=== PATIENT | female | born 1970 | race Caucasian/White ===

== ENCOUNTER 2019-06-28 07:17 | Day surgery (SDC) | payer BC, SELFPAY ==
[2019-06-27 14:02] VITALS: BMI 31.9
--- NOTE | 2019-06-28 07:49 | ANES.PREANES ---
Pre-Anesthetic Assessment Pre-Anesthetic Assessment: Height/Weight: Height 1.7 m Weight 92.533 kg Proposed Procedure: Operation Date: 06/28/19 09:00 Proposed Procedures p COLON(Not Applicable) - Evgeny Bryan MD Social: Social History: Alcohol and Tobacco Exam: Pre-Anes Outpt Exam: alert, oriented x 3, clear to auscultation bilaterally and regular rate & rhythm Airway: Submandibular: WNL Cervical ROM: WNL MP: 2 Dentition: Full History/ROS: No significant history except as noted Anesthetic Plan: ASA status: III Anesthesia: Anesthesia Evaluation and MAC PFSH Anesthesia PFSH: Medical History (Updated 06/28/19 @ 07:51 by Reed Bryant MD) Autonomic neuropathy (Acute) Depression (Acute) Fibromyalgia (Acute) Functional movement disorder (Acute) History of IBS (Acute) History of pulmonary edema (Acute) Migraine (Acute) Psoriasis (Acute) Sleep apnea (Acute) Surgical History (Updated 06/28/19 @ 07:51 by Reed Bryant MD) History of carpal tunnel repair (Acute) LEFT Family History (Updated 06/27/19 @ 13:46 by Gayle Coyle LPN) Mother Breast cancer Grandmother Breast cancer Father Stented coronary artery Social History (Updated 06/27/19 @ 13:47 by Gayle Coyle LPN) Smoking and tobacco status: current every day smoker Alcohol intake: never Substance/Drug Use: never Data Anesthesia Cardiac Studies: No Data to Display
[2019-06-28] MEDS: sodium chloride 0.9% 1,000 ML 30 ML (08:45)
[2019-06-28 10:11] VITALS: BP 111/64; PULSE 75; RESP 16; TEMP 36.2; O2SAT 95
--- NOTE | 2019-06-28 10:13 | ANE.PACU ---
 Inpatient post-anesthesia follow up: Airway intact: Yes Vital signs: Temperature Pulse Rate Respiratory Rate Blood Pressure Pulse Oximetry Oxygen Delivery Me thod Oxygen Flow Rate Fraction of Inspir ed Oxygen Hydration adequate: Yes Nausea and vomiting: No Pain level: 1 Mental status: Baseline Additional Comments: VSS good respiratory effort see nurse note for vitals
[2019-06-28 10:25] VITALS: BP 123/73; PULSE 66; RESP 18; O2SAT 97
--- NOTE | 2019-09-03 07:12 | W.PM.OPSUD ---
Surgery/Procedure H&P Update DATE OF PROCEDURE: June 28, 2019 DATE H&P PERFORMED: 09/03/19 H&P UPDATE INFORMATION: I have reviewed H&P completed within last 30 days, I have examined patient prior to procedure, No changes to prior documentation and H&P to be scanned into chart CHANGES TO PREVIOUS DOCUMENTATION: No changes necessary PREOP DIAGNOSIS: 1. Chronic diarrhea2. History of colon polyps PLANNED PROCEDURE: Operation Date: 06/28/19 09:00 Proposed Procedures p COLON(Not Applicable) - Evgeny Bryan MD PATIENT REASSESSED PRIOR TO SEDATION, WITH NO CHANGE NOTED: Yes PHYSICAL EXAM: alert, oriented x 3, clear to auscultation bilaterally and regular rate & rhythm OTHER PERTINENT EXAM FINDINGS: Abdomen is nondistended and nontender.
== END 2019-06-28 10:33 | disposition home or self-care (01) ==
PROVIDERS: Family Provider Physician Assistant; PCP Physician Assistant; Visit Provider Family Medicine
PROC: 0DJD8ZZ Inspection of Lower Intestinal Tract, Via Natural or Artificial Opening Endoscopic (ICD-10-PCS; CPT 45378; principal; 2019-06-28 09:00)
DX: Z12.11 Encounter for screening for malignant neoplasm of colon (principal); D12.2 Benign neoplasm of ascending colon; Z86.010 Personal history of colon polyps; K52.9 Noninfective gastroenteritis and colitis, unspecified; G47.30 Sleep apnea, unspecified; F32.9 Major depressive disorder, single episode, unspecified; M79.7 Fibromyalgia; F17.210 Nicotine dependence, cigarettes, uncomplicated
CPT/HCPCS: 12345; 45385; 88305; 99221; J2704; J7030

== ENCOUNTER → 2019-07-19 09:52 | Outpatient (BNVA) | payer BC, SELFPAY | PROVIDERS: Family Provider Physician Assistant; PCP Physician Assistant; Visit Provider Nurse Practitioner | DX: G89.29 Other chronic pain (principal); M54.9 Dorsalgia, unspecified; M54.2 Cervicalgia; M25.512 Pain in left shoulder; M79.7 Fibromyalgia; F17.210 Nicotine dependence, cigarettes, uncomplicated; Z79.891 Long term (current) use of opiate analgesic | CPT/HCPCS: 99215 ==

== ENCOUNTER → 2019-08-29 13:04 | Outpatient (BNVA) | payer BC, SELFPAY | PROVIDERS: Family Provider Physician Assistant; PCP Physician Assistant; Visit Provider Specialist | DX: G43.711 Chronic migraine without aura, intractable, with status migrainosus (principal); F17.210 Nicotine dependence, cigarettes, uncomplicated | CPT/HCPCS: 64615; J0585 ==

== ENCOUNTER 2019-09-19 08:43 | Outpatient (CLI) | payer BC, SELFPAY ==
--- NOTE | 2019-09-19 08:49 | CT_ITS ---
WS: [id number] CT ABDOMEN AND PELVIS NONCONTRAST HISTORY: LLQ PAIN TECHNIQUE: Imaging performed through the abdomen and pelvis. Patient refused oral contrast. Coronal a nd sagittal reformats are submitted. All CT scans at [facility] use at least one of these dose optimization techniques: automated exposure control; mA and/or kV adjustment per patient size ( includes targeted exams where dose is matched to clinical indication); or iterative reconstruction. DLP: 1444.56 mGy.cm COMPARISON: None available. Lower thorax: Lung bases are clear. No hiatal hernia. Liver: Normal, no mass or intrahepatic dilatation. Gallbladder: Prior cholecystectomy. Pancreas: Normal. Spleen: Normal. Adrenal glands: RIGHT adrenal gland is normal. Well-circumscribed low-attenuation mass with negative Hounsfield units measures 2.6 x 2.8 cm in the LEFT adrenal gland. Right kidney: Nonobstructing 5 mm calcification upper pole. No obstruction. Left kidney: Normal size with no stones, mass or atrophy. Mild atherosclerosis. No aneurysm. No free fluid, intraperitoneal air or significant lymphadenopathy. GI tract: Normal appendix. Mild fecal retention with no obstruction. There are a few diverticula in t he sigmoid with no adjacent evidence for diverticulitis. There is some very mild wall thickening of t he distal sigmoid which is nonspecific. May be due to underdistention or mild colitis or early neopla sm. Abdominal wall: Postsurgical changes along the ventral abdominal wall from hernia repair. Pelvis: Minimally distended urinary bladder. No free fluid or adenopathy. Prior hysterectomy. Osseous structures: Sclerotic focus involving the posterior LEFT acetabulum is probably a benign bone island. CT/CT abdomen pelvis wo con [id number] IMPRESSION: 1. No acute abdominal or pelvic abnormality identified. 2. There is very minimal wall thickening involving the distal sigmoid which co uld be due to underdistention, mild colitis or early neoplasm. No significant d iverticular disease. Follow-up colonoscopy may be beneficial. 3. LEFT adrenal adenoma. 4. Prior cholecystectomy and hysterectomy.
== END 2019-09-19 08:44 | disposition home or self-care (01) ==
PROVIDERS: Family Provider Physician Assistant; PCP Physician Assistant; Visit Provider Physician Assistant
DX: D35.02 Benign neoplasm of left adrenal gland (principal); R10.32 Left lower quadrant pain; Z90.49 Acquired absence of other specified parts of digestive tract; Z90.710 Acquired absence of both cervix and uterus
CPT/HCPCS: 74176

== ENCOUNTER → 2019-09-26 08:01 | Outpatient (BNVA) | payer BC, SELFPAY | PROVIDERS: Family Provider Physician Assistant; PCP Physician Assistant; Visit Provider Anesthesiology | DX: M79.18 Myalgia, other site (principal); G89.29 Other chronic pain; M54.2 Cervicalgia; M54.9 Dorsalgia, unspecified; F17.200 Nicotine dependence, unspecified, uncomplicated; Z79.899 Other long term (current) drug therapy | CPT/HCPCS: 20552; J1030; J3490 ==

== ENCOUNTER 2019-10-31 07:19 | Day surgery (SDC) | payer BC, SELFPAY ==
[2019-10-30 13:47] VITALS: BMI 33.0
[2019-10-31 07:34] VITALS: BP 131/74; PULSE 74; RESP 18; TEMP 36.4; O2SAT 95
[2019-10-31] MEDS: sodium chloride 0.9% 1,000 ML 30 ML IV (07:52)
--- NOTE | 2019-10-31 08:02 | ANES.PREANE2 ---
Pre-Anesthetic Assessment Pre-Anesthetic Assessment: Height/Weight: Height 1.7 m Weight 95.708 kg Temp Pulse Resp BP Pulse Ox 97.5 F L 74 18 131/74 95 10/31/19 07:34 10/31/19 07:34 10/31/19 07:34 10/31/19 07:34 10/31/19 07:34 Preop Diagnosis: 1. Chronic diarrhea2. History of colon polyps Proposed Procedure: Operation Date: 10/31/19 08:45 Proposed Procedures p Exam Under Anesthesia poss Hemrroidectomy(Not Applicable) - Kareem Bird MD s possible Hemorroidectomy(Not Applicable) - Kareem Bird MD s Possible internal anal Sphincterotomy(Not Applicable) - Kareem Bird MD Was Beta Ayad taken within 24 hours: N/A Last intake: Intake Last Liquid Date 10/30/19 Last Liquid Time 22:30 Last Solid Date 10/30/19 Last Solid Time 18:30 Social: Social History: Alcohol and Tobacco Exam: Pre-Anes Outpt Exam: alert, oriented x 3, clear to auscultation bilaterally and regular rate & rhythm Airway: Submandibular: WNL Cervical ROM: WNL MP: 2 History/ROS: No significant history except as noted Neuropsych: Neuropsych: Seizure Anesthetic Plan: ASA status: 2 Anesthesia: Anesthesia Evaluation, Choice and MAC Risk of > 500 ml blood loss (7ml/kg in children): No Meds/Allergies Current Medications: Current Medications Generic Name Dose Route Start Last Admin Trade Name Freq PRN Reason Stop Dose Admin Sodium Chloride 1,000 mls @ 30 ml s/hr 10/31/19 07:30 10/31/19 07:52 Sodium Chloride 0.9% IV 11/01/19 07:29 30 mls/hr .Q24H ETHAN Administration PFSH Anesthesia PFSH: Medical History Autonomic neuropathy Depression Dyslipidemia Fibromyalgia Functional movement disorder History of IBS History of pulmonary edema Long-term use of high-risk medication Migraine Myalgia Psoriasis Sleep apnea Smoker Surgical History History of carpal tunnel repair LEFT Hx of section Hx of cholecystectomy Hx of hysterectomy Social History Smoking and tobacco status: current every day smoker cigarettes Alcohol intake: current Alcohol intake frequency: holidays/special occasions only History of recent travel: No Data Anesthesia Cardiac Studies: No Data to Display
--- NOTE | 2019-10-31 09:17 | W.PM.OPSUD ---
Surgery/Procedure H&P Update DATE OF PROCEDURE: October 31, 2019 DATE H&P PERFORMED: 09/03/19 H&P UPDATE INFORMATION: I have reviewed H&P completed within last 30 days and No changes to prior documentation PREOP DIAGNOSIS: 1. Chronic diarrhea2. History of colon polyps PLANNED PROCEDURE: Operation Date: 10/31/19 08:45 Proposed Procedures p Exam Under Anesthesia poss Hemrroidectomy(Not Applicable) - Kareem Bird MD s possible Hemorroidectomy(Not Applicable) - Kareem Bird MD s Possible internal anal Sphincterotomy(Not Applicable) - Kareem Bird MD
[2019-10-31] MEDS: metroNIDAZOLE IV 500 MG/100 ML PREMIX 100 MG IV (09:30)
--- NOTE | 2019-10-31 09:46 | PM.OP ---
Operative Report Date of procedure: October 31, 2019 Pre-op Diagnosis: 1. Anorectal pain. 2. Chronic diarrhea. Post-op Diagnosis: 1. Same (posterior anal fissure). 2. Internal/external hemorrhoids. Procedure Done: 1. Exam under anesthesia with left lateral internal anal sphincterotomy. 2. Hemorrhoidectomy. Specimens removed/disposition: Hemorrhoids. Surgeon: Kareem Bird Anesthesia: General Estimated blood loss (mL): 5 Complications: None. Condition: stable Disposition: PACU Procedure: The patient was brought to the operating room and was placed in a supine position on the operating room table. General endotracheal anesthesia was induced. The patient was then moved to a left lateral decubitus position on the table. The perianal region was prepped and draped in a sterile fashion. An exam under anesthesia was then carried out using a Lipscomb rectal retractor. Obvious internal anal sphincter spasm/stenosis was present. 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 Cautery was used to make a small incision in the left lateral location in the intersphincteric groove. The internal anal sphincter was isolated by means of blunt dissection with a hemostat. The sphincter was then partially divided with Metzenbaum scissors. This allowed the anal sphincters to be gently dilated to approximately 2-1/2 - 3 fingerbreadths. The small incision was then closed using several interrupted sutures of 3-0 chromic. Hemostasis was good. The hemorrhoids were then sequentially grasped with an Allis clamp and were removed or ablated using the Voyant energy device. Some 0.5% bupivacaine with 1-200,000 parts epinephrine was instilled for postoperative anesthesia. A Vaseline coated piece of gauze and some fluff dressings were used as anal packing and then a superficial fluff dressing was placed. The patient was taken to the recovery room in stable condition postoperatively.
[2019-10-31 09:56] VITALS: BP 128/75; PULSE 101; RESP 16; TEMP 36.2; O2SAT 95
[2019-10-31 10:00] VITALS: BP 125/86; PULSE 98; RESP 15; O2SAT 93
[2019-10-31 10:05] VITALS: BP 117/74; PULSE 95; RESP 17; TEMP 36.4; O2SAT 94
[2019-10-31 10:09] VITALS: BP 114/73; PULSE 95; RESP 18; TEMP 36.5; O2SAT 95
[2019-10-31 10:20] VITALS: BP 105/67; PULSE 97; RESP 18; O2SAT 97
== END 2019-10-31 10:50 | disposition home or self-care (01) ==
PROVIDERS: PCP Physician Assistant; Visit Provider Surgery
PROC: (CPT 46260; principal; 2019-10-31 08:45)
PROC: (CPT 46260; 2019-10-31 08:45)
PROC: (CPT 46080; 2019-10-31 08:45)
DX: K62.89 Other specified diseases of anus and rectum (principal); K52.9 Noninfective gastroenteritis and colitis, unspecified; K64.8 Other hemorrhoids; K64.4 Residual hemorrhoidal skin tags; E78.5 Hyperlipidemia, unspecified; M79.7 Fibromyalgia; G47.30 Sleep apnea, unspecified; F17.210 Nicotine dependence, cigarettes, uncomplicated; K21.9 Gastro-esophageal reflux disease without esophagitis; Z82.49 Family history of ischemic heart disease and other diseases of the circulatory system; Z83.3 Family history of diabetes mellitus
CPT/HCPCS: 46260; 12345; 88304; J0330; J0690; J2001; J2405; J2704; J3010; J3490; J7030; S0030

== ENCOUNTER → 2019-11-21 13:20 | Outpatient (BNVA) | payer BC, SELFPAY | PROVIDERS: PCP Physician Assistant; Visit Provider Specialist | DX: G43.711 Chronic migraine without aura, intractable, with status migrainosus (principal); F17.210 Nicotine dependence, cigarettes, uncomplicated | CPT/HCPCS: 64615; J0585 ==

== ENCOUNTER 2019-12-02 10:05 | Outpatient (CLI) | payer BC, SELFPAY ==
--- NOTE | 2019-12-02 10:15 | USCV_ITS ---
Yulisa Laughlin Age: 49 Gender: F : 1970 Exam Date: 12/02/2019 10:19 Ordering Phys: Radha Morrison MD ([email or web address]) Technologist: Ivy Noel [place] [facility] [place]: ASCITES Risk Factors: Previous Vascular Surgery: Right Brachial BP: / Left Brachial BP: / Right Left Velocity (cm/s) Spectral Plaque Velocity (cm/s) Spectral Plaque Syst/Diast Broadening Syst/Diast Broadening 93.70/ 19.80 Prox CCA 74.30 / 23.10 80.50/ 23.20 Mid CCA 66.70 / 22.20 56.20/ 19.80 Distal CCA 55.50 / 20.50 49.30/ 17.10 Prox ICA 51.20 / 18.90 53.20/ 23.70 Mid ICA 39.50 / 18.90 51.90/ 23.00 Distal ICA 53.90 / 22.50 83.80 ECA 97.10 0.66 ICA/CCA 0.81 Antegrade Vertebral Antegrade 24.60/ 11.20 cm/s 18.70/ 5.80 cm/s Tri Subclavian Tri 91.40 98.80 FINDINGS Comparison: none available. No significant elevation of systolic or diastolic velocities. Waveforms are normal. No significant amount of calcified plaque or intimal thickening identified. CONCLUSIONS Normal carotid doppler ultrasound. Dr. Aleksandra Roy DO (Electronically Signed) Final Date: 02 December 2019 16:09 S
== END 2019-12-02 10:06 | disposition home or self-care (01) ==
LOC: RAD 10:08
PROVIDERS: PCP Physician Assistant; Visit Provider Internal Medicine Cardiovascular Disease
DX: R18.8 Other ascites (principal)
CPT/HCPCS: 93880

== ENCOUNTER 2020-02-03 11:26 | Outpatient (RCR) | payer BC, SELFPAY | END 2020-02-24 23:59 | disposition home or self-care (01) | LOC: SPT 11:26 | PROVIDERS: PCP Physician Assistant; Visit Provider Physician Assistant | DX: M54.2 Cervicalgia (principal) | CPT/HCPCS: 97110; 97162 ==

== ENCOUNTER → 2020-02-13 10:38 | Outpatient (BNVA) | payer BC, SELFPAY | PROVIDERS: PCP Physician Assistant; Visit Provider Specialist | DX: G43.711 Chronic migraine without aura, intractable, with status migrainosus (principal) | CPT/HCPCS: 64615; J0585 ==

== ENCOUNTER 2020-02-25 06:00 | Outpatient (RCR) | payer BC, SELFPAY | END 2020-03-25 23:59 | disposition home or self-care (01) | LOC: SPT 06:00 | PROVIDERS: PCP Physician Assistant; Visit Provider Physician Assistant | DX: M54.2 Cervicalgia (principal) | CPT/HCPCS: 97110 ==

== ENCOUNTER → 2020-05-07 11:09 | Outpatient (BNVA) | payer BC, SELFPAY | PROVIDERS: PCP Physician Assistant; Visit Provider Specialist | DX: G43.711 Chronic migraine without aura, intractable, with status migrainosus (principal); F17.210 Nicotine dependence, cigarettes, uncomplicated | CPT/HCPCS: 64615; 99213; J0585 ==

== ENCOUNTER 2020-05-25 07:02 | Outpatient (CLI) | payer BC, SELFPAY ==
--- NOTE | 2020-05-25 07:15 | MR_ITS ---
WS: [id number] MRI HEAD WITHOUT CONTRAST TECHNIQUE: Sagittal T1, T2 axial, T2 axial FLAIR, axial and coronal T1 images, axial susceptibility w eighted imaging, axial diffusion weighted images, and coronal T2 images were obtained. CLINICAL INFORMATION: G43.711 - Chronic migraine without aura, intractable, with status migrainosus COMPARISON: None. FINDINGS: No evidence of restricted diffusion to suggest acute ischemia. Ventricular system and basal cisterns are patent. Mild small vessel changes. Mild parenchymal volume loss. Normal posterior fossa. Normal v ascular flow voids at the skull base. No extra-axial fluid collections. No evidence of mass or mass e ffect. Mild mucosal thickening in the mastoid air cells. Paranasal sinuses are well aerated. No hemosiderin on susceptibly weighted images. Normal optic chiasm and pituitary infundibulum. Normal cavernous sinuses and Meckel's cave. Temporal lobes and hippocampal formations are normal in appeara nce. No evidence of mesial temporal sclerosis. MR/MR head wo con* [id number] IMPRESSION: 1. No evidence of restricted diffusion to suggest acute ischemia. 2. Mild supratentorial white matter changes mainly in a subcortical location n onspecific in a patient this age but can be seen with migraine headaches. No si gnificant parenchymal volume loss. 3. Temporal lobes and hippocampal formations are normal in appearance. 4. No hemosiderin on susceptibly weighted images. 5. Mild mucosal thickening in the mastoid air cells.
== END 2020-05-25 07:03 | disposition home or self-care (01) ==
LOC: RADSHAW 07:04
PROVIDERS: PCP Physician Assistant; Visit Provider Specialist
DX: G43.711 Chronic migraine without aura, intractable, with status migrainosus (principal)
CPT/HCPCS: 70551

== ENCOUNTER 2020-08-17 12:30 | Outpatient (CLI) | payer BC, SELFPAY | END 2020-08-17 12:31 | disposition home or self-care (01) | LOC: SLEEP 08-18 13:26 | PROVIDERS: PCP Physician Assistant; Visit Provider Physician Assistant | DX: G47.10 Hypersomnia, unspecified (principal) | CPT/HCPCS: G0399 ==

== ENCOUNTER → 2020-08-20 08:49 | Outpatient (BNVA) | payer BC, SELFPAY | PROVIDERS: PCP Physician Assistant; Visit Provider Specialist | DX: G43.711 Chronic migraine without aura, intractable, with status migrainosus (principal); G47.30 Sleep apnea, unspecified; M79.10 Myalgia, unspecified site; R55 Syncope and collapse; F17.210 Nicotine dependence, cigarettes, uncomplicated | CPT/HCPCS: 64615; 99213; 99214; J0585 ==

== ENCOUNTER 2020-09-09 08:45 | Outpatient (CLI) | payer BC, SELFPAY ==
--- NOTE | 2020-09-09 08:57 | MM_ITS ---
WS: [id number] BILATERAL DIGITAL SCREENING MAMMOGRAPHY WITH CAD CLINICAL INFORMATION: SCREENING HISTORY: Screening mammogram. No current complaints. COMPARISON: TECHNIQUE: Bilateral CC and MLO views. FINDINGS: Scattered fibroglandular densities bilaterally. No suspicious focal mass, asymmetry, calcifications, or architectural distortion. No evidence of malignancy. MM/[place] [id number] IMPRESSION: BI-RADS: 1-Negative FOLLOW UP: 1 Year Follow-up Recommend return to annual screening mammography.
== END 2020-09-09 08:46 | disposition home or self-care (01) ==
LOC: RADSHAW 08:47
PROVIDERS: PCP Physician Assistant; Visit Provider Physician Assistant
DX: Z12.31 Encounter for screening mammogram for malignant neoplasm of breast (principal)
CPT/HCPCS: 77067

== ENCOUNTER 2020-09-10 12:39 | Emergency (ER) | payer BC, SELFPAY ==
[2020-09-10 12:44] VITALS: BP 145/78; PULSE 103; RESP 18; TEMP 37.2; O2SAT 98; BMI 33.5
--- NOTE | 2020-09-10 13:36 | CT_ITS ---
WS: [id number] CT ABDOMEN PELVIS TECHNIQUE: Noncontrast CT of the abdomen and pelvis with coronal and sagittal reformatted images. CLINICAL INFORMATION: right flank pain COMPARISON: CT September 19, 2019 DLP: 1485.[address] scans at [facility] use at least one of these dose optimization techniques: automat ed exposure control; mA and/or kV adjustment per patient size (includes targeted exams where dose is matched to clinical indication); or iterative reconstruction. FINDINGS: Prior cholecystectomy and hysterectomy. Left adrenal adenoma is stable measuring 2.6 x 2.7 CM. No hyd ronephrosis in right kidney. Right ureter is decompressed. No obstructing right renal or ureteral terence culi. Nonobstructing 4 mm right calyceal tip calculus. A few additional tiny punctate nonobstructing calyceal tip calculi. No hydronephrosis in the left kidney. Pelvic phleboliths. Lung bases are well aerated. Mild fatty atrophy of the pancreas. Normal GE juncti on. Noncontrast spleen is normal. Normal caliber abdominal aorta. Mild aortic calcification. No abdom inal or pelvic lymphadenopathy. Normal sigmoid colon. No evidence of small or large bowel obstruction. Normal lumbar spine. CT/CT kidney stone [id number] IMPRESSION: 1. No obstructing renal or ureteral calculi. No hydronephrosis in either kidne y. 2. Prior postoperative changes cholecystectomy and hysterectomy. 3. Stable left adrenal adenoma measuring 2.6 x 2.7 CM. 4. Normal caliber abdominal aorta. 5. Prior ventral abdominal wall hernia repair. 6. Appendix in the right lower quadrant is normal. No evidence of acute append icitis.
--- NOTE | 2020-09-10 13:38 | ED_ITS ---
HPI - General Adult General: Chief complaint: General Medical Stated complaint: bleeding/burning when urniating, lower abd.backpai Time Seen by Provider: 09/10/20 13:15 History of Present Illness: HPI narrative: Patient complains about bilateral flank pain worse on the right. Said she was dripping blood with her urine this morning. Denies fever chills nausea and vomiting but she always has chronic nausea she is also pain clinic patient. Is treated for fibromyalgia and chronic back pain. Does have some bloating. Recently treated for urinary tract infection by urgent care also complains about dysuria complaint: Flank pain Onset (ago): day(s) Location: back Severity: moderate Severity scale (1-10): 5 Quality: burning and aching Associated symptoms: Reports no associated symptoms; Deny chest pain, dyspnea, headache(s), nausea, rash or vomiting Review of Systems Const: Denies: fever(s), chills or body aches Eyes: Denies: change in vision or blurry vision ENMT: Denies: throat pain or nasal congestion Card: Denies: chest pain or dyspnea on exertion Resp: Denies: dyspnea, productive cough or non-productive cough GI: Denies: abdominal pain, nausea or vomiting : Reports: flank pain and dysuria Musc: Denies: extremity pain Skin/Breast: Denies: rash Neuro: Denies: headache(s) Psych: Denies: anxiety or depression Zhen/Lymph: Denies: easy bruising PFSH ED PFSH: Medical History Autonomic neuropathy Depression Dyslipidemia Fibromyalgia Functional movement disorder History of IBS History of pulmonary edema Long-term use of high-risk medication Migraine Myalgia Psoriasis Sleep apnea Smoker Surgical History History of carpal tunnel repair LEFT Hx of section Hx of cholecystectomy Hx of hysterectomy Family History Mother Breast cancer Grandmother Breast cancer Father Stented coronary artery Social History Smoking and tobacco status: current every day smoker cigarettes Alcohol intake: current Alcohol intake frequency: holidays/special occasions only History of recent travel: No Physical Exam Const: COMMON NORMALS: no acute distress, average body habitus and patient oriented x3 HENMT: COMMON NORMALS: normocephalic HEAD & SCALP: normal to inspection and normocephalic FACE & SINUS: normal facial exam Eye: COMMON NORMALS: conjunctivae normal GENERAL EYE: appearance normal, both eyes and all related structures CONJUNCTIVA: Yes conjunctivae normal Neck/C-Spine: COMMON NORMALS: no JVD Chest: COMMONS NORMALS: normal inspection of the chest Resp: COMMON NORMALS: normal respiratory effort Cardio: COMMON NORMALS: no JVD RATE: tachycardic GI: COMMON NORMALS: Normal to inspection, nondistended, normoactive bowel sounds present : BLADDER/KIDNEY EXAM: Yes CVA tenderness bilateral Extremity: COMMON NORMALS: normal to inspection and full ROM Neuro: COMMON NORMALS: patient oriented x3 Course Vital Signs: Vital signs: Vital Signs Temperature 98.9 F 09/10/20 12:44 Pulse Rate 85 09/10/20 15:25 Respiratory Rate 17 09/10/20 15:25 Blood Pressure 111/65 09/10/20 15:25 Pulse Oximetry 96 09/10/20 15:25 MDM - General Adult MDM Narrative: Medical decision making narrative: Discussed lab and radiology results with the patient. White count slightly elevateion early due to pain. Urine shows trace hematuria. Patient not wanting pain medication she does go to pain clinic in [facility] pain management. She gets trigger point injections. She tells them that she does not want to be on pain medication. She has seen pain management here in [place] Dr. Gottlieb and was fired because she said she would not take pain medication. Patient did have gross blood today on urination possible that she could have passed a stone and not showing up in radiology obviously now. Patient is to follow back up with [facility] at [facility] and see about referral for chronic low back pain fibromyalgia and redo labs in the next week or 2. Differential Diagnosis: Differential Diagnosis: Low back pain, radiculopathy, kidney pain, fibromyalgia Lab Data: Labs: Lab Results 09/10/20 09/10/20 09/10/20 Range/Units 13:00 13:52 13:52 WBC 14.3 H (4.0-10.0) 10^3/ uL RBC 4.27 (4.1-5.3) 10^6/u L Hgb 14.7 (11.5-15.3) g/dL Hct 44.3 (37.0-47.0) % MCV 103.7 H (81-99) fL MCH 34.4 H (28.0-34.0) pg MCHC 33.2 (30.0-36.0) g/dL RDW 14.0 (12.1-15.1) % Plt Count 220 (130-400) 10^3/c mm MPV 9.4 (7.4-10.4) fL Neut % (Auto) 66.7 % Lymph % (Auto) 24.8 % [place] % (Auto) 6.3 % Eos % (Auto) 1.1 % Baso % (Auto) 0.5 % Neut # (Auto) 9.50 H (1.8-7.7) 10^3/u L Lymph # (Auto) 3.5 (0.8-4.8) 10^3/u L [place] # (Auto) 0.9 (0.2-0.9) 10^3/u L Eos # (Auto) 0.2 (0.0-0.8) 10^3/u L Baso # (Auto) 0.1 (0.0-0.1) 10^3/u L Nucleated RBC % (a uto) 0 % Nucleated RBCs # 0.0 /100WBC Sodium 141 (136-145) mmol/L Potassium 3.7 (3.5-5.1) mmol/L Chloride 108 H (98-107) mmol/L Carbon Dioxide 21 L (22-29) mmol/L Anion Gap 15.7 (5-19) BUN 8 (6-20) mg/dL Creatinine 0.8 (0.5-0.9) mg/dL GFR Calculation 76.6 L (90-130) mL/min Glucose 136 H (65-115) mg/dL Calculated Osmolal ity 292 (285-295) mOsm/k g Calcium 8.7 (8.5-10.5) mg/dL Total Bilirubin 0.3 (0.15-1.2) mg/dL AST 19 (0-32) U/L ALT 25 (0-33) U/L Alkaline Phosphata se 120 H (35-105) IU/L Total Protein 6.9 (6.6-8.7) g/dL Albumin 4.5 (3.5-5.2) g/dL Globulin 2.4 (1.3-4.6) g/dL Urine Color Yellow (Yellow) Urine Appearance Clear (CLEAR) Urine pH 6 (5-7) Ur Specific Gravit y 1.010 (1.005-1.030) Urine Protein Neg (Negative) Urine Glucose (UA) Norm (Normal) Urine Ketones Negative (Negative) Urine Blood 2+ H (Negative) Urine Nitrate Negative (Negative) Urine Bilirubin Neg (Negative) Urine Urobilinogen Norm (Negative) mg/dL Ur Leukocyte Gaby ase Negative (Negative) Urine RBC None (0-2) /hpf Urine WBC 0-4 H (0-5) /hpf Ur Squamous Epith Cells None (0-5) /hpf Amorphous Sediment Not Reportable Urine Bacteria Trace (NONE) /hpf Discharge Plan Discharge Patient Disposition: Home Clinical Impression: Acute flank pain Condition: Stable Prescriptions: New Celebrex 100 mg capsule 100 mg PO BID Qty: 20 RF: 0 No Action atorvastatin 40 mg tablet 40 mg PO DAILY Qty: 90 RF: 3 gabapentin 800 mg tablet 800 mg PO QID Qty: 120 RF: 1 topiramate 100 mg tablet 100 mg PO BID Qty: 60 RF: 1 cetirizine [Zyrtec] 10 mg Tablet 10 mg PO DAILY RF: 0 escitalopram oxalate [Lexapro] 20 mg Tablet 20 mg PO DAILY RF: 0 ascorbic acid (vitamin C) [Vitamin C] 500 mg Capsule, Extended Release 500 mg PO DAILY RF: 0 epinephrine [EpiPen] 0.3 mg/0.3 mL Auto-Injector 0.3 mg IM Q10M PRN (Reason: Allergic Reaction) Qty: 0 RF: 0 cholecalciferol (vitamin D3) [Vitamin D3] 2,000 unit Tablet 2,000 unit PO DAILY RF: 0 cyanocobalamin (vitamin B-12) [Vitamin B-12] 1,000 mcg Tablet 1,000 mcg PO DAILY RF: 0 fludrocortisone 0.1 mg tablet 0.1 mg PO DAILY RF: 0 Discharge Orders: Discharge ED (Routine); Ordered 09/10/20 Ordered By: Anupam Damian Referrals: Jayshree Davis PA [Primary Care Provider] - Patient Instructions: Flank Pain (ED) Activity Restrictions/Additional Instructions: Follow-up with medical provider as directed. Take medications as prescribed. Return to the ER or your medical provider if condition worsens. Please read and understand discharge instructions. If any questions ask please. Coding Level of Care Code ED Towel Distributor for Erwin Fwd Exam Comprehensive
[2020-09-10] MEDS: ketorolac 60 mg/2 mL INJ IM (14:00)
[2020-09-10 14:05] LABS: Basophils # 0.1 10^3/uL (0.0-0.1); Basophils % 0.5 %; Eosinophils # 0.2 10^3/uL (0.0-0.8); Eosinophils % 1.1 %; Hematocrit 44.3 % (37.0-47.0); Hemoglobin 14.7 g/dL (11.5-15.3); Lymphocytes # 3.5 10^3/uL (0.8-4.8); Lymphocytes % 24.8 %; Mean Corpuscular HGB Conc 33.2 g/dL (30.0-36.0); Mean Corpuscular Hemoglobin 34.4 pg (28.0-34.0); Mean Corpuscular Volume 103.7 fL (81-99); Mean Platelet Volume 9.4 fL (7.4-10.4); Monocytes # 0.9 10^3/uL (0.2-0.9); Monocytes % 6.3 %; Neutrophils % 66.7 %; Nucleated Red Blood Cells % 0 %; Platelet Count 220 10^3/cmm (130-400); Red Blood Count 4.27 10^6/uL (4.1-5.3); White Blood Count 14.3 10^3/uL (4.0-10.0)
[2020-09-10 14:10] LABS: Glucose Urine UA Norm (Normal); Ketones Urine Negative (Negative); Protein Urine Neg (Negative); Urine Appearance Clear (CLEAR); Urine Color Yellow (Yellow); pH Urine 6 (5-7)
[2020-09-10 14:11] LABS: Add Urine Microscopic? YES; Bacteria Urine TRACE /hpf; Bilirubin Urine Neg (Negative); Blood Urine 2+ (Negative); Leukocyte Esterase Urine Negative (Negative); Nitrate Urine Negative (Negative); Urobilinogen Urine Norm (Negative); WBC Urine 0-4 /hpf (0-5)
[2020-09-10 14:30] LABS: Alanine Aminotransferase 25 U/L (0-33); Albumin Level 4.5 g/dL (3.5-5.2); Alkaline Phosphatase 120 IU/L (35-105); Anion Gap 15.7 (5-19); Aspartate Amino Transferase 19 U/L (0-32); Blood Urea Nitrogen 8 mg/dL (6-20); Calcium 8.7 mg/dL (8.5-10.5); Carbon Dioxide 21 mmol/L (22-29); Chloride 108 mmol/L (98-107); Globulin 2.4 g/dL (1.3-4.6); Glomerular Filtration Rate 76.6 mL/min (90-130); Glucose 136 mg/dL (65-115); Osmolality Calculated 292 mOsm/kg (285-295); Potassium 3.7 mmol/L (3.5-5.1); Sodium 141 mmol/L (136-145); Total Bilirubin 0.3 mg/dL (0.15-1.2); Total Protein 6.9 g/dL (6.6-8.7)
[2020-09-10 15:25] VITALS: BP 111/65; PULSE 85; RESP 17; O2SAT 96
== END 2020-09-10 15:26 | disposition home or self-care (01) ==
PROVIDERS: Emergency Provider Nurse Practitioner Family; PCP Physician Assistant
DX: R10.9 Unspecified abdominal pain (principal); E78.5 Hyperlipidemia, unspecified; F17.210 Nicotine dependence, cigarettes, uncomplicated
CPT/HCPCS: 74176; 80053; 81001; 85025; 96372; 99283; J1885

== ENCOUNTER → 2020-10-02 11:37 | Outpatient (BNVA) | payer BC, SELFPAY | PROVIDERS: PCP Physician Assistant; Visit Provider Internal Medicine Pulmonary Disease | DX: Z20.822 Contact with and (suspected) exposure to COVID-19 (principal) | CPT/HCPCS: 87635 ==

== ENCOUNTER 2020-10-08 13:51 | Outpatient (CLI) | payer BC, SELFPAY ==
--- NOTE | 2020-10-08 14:21 | PFTS_ITS ---
Date of Study:10/08/20 Date of Dictation: 10/09/2020 MECHANICS: Forced vital capacity (FVC) is normal. Forced expiratory volume in one second (FEV1) is normal. FEV1/FVC is normal. FLOW VOLUME LOOP: Normal . LUNG VOLUMES: Not measured. DIFFUSING CAPACITY FOR CARBON MONOXIDE: Normal . INTERPRETATION: The spirometry and gas transfer are normal. MTDD
== END 2020-10-08 13:52 | disposition home or self-care (01) ==
LOC: RT 13:51
PROVIDERS: PCP Physician Assistant; Visit Provider Internal Medicine Pulmonary Disease
DX: F17.200 Nicotine dependence, unspecified, uncomplicated (principal)
CPT/HCPCS: 94010; 94729

== ENCOUNTER 2020-10-13 09:59 | Outpatient (CLI) | payer BC, SELFPAY ==
--- NOTE | 2020-10-13 10:14 | MR_ITS ---
WS: [id number] MRI LUMBAR SPINE NONCONTRAST HISTORY: LUMBAR BACK PAIN W RADICULOPATHY, AFFECTING LOWER EXTREMITY COMPARISON: None available. TECHNIQUE: Sagittal and axial multisequence imaging is submitted. Very slight anterior wedging of T1, T3 and T8. Normal alignment lumbar vertebral bodies. Small Schmorl's nodes defects from T11 through L2. No marro w edema or fractures and lumbar spine. Disc spaces are well preserved with only mild desiccation at L5-S1. Conus terminates normally at L1-2 disc level. L1-L2: Normal. L2-L3: Normal. L3-L4: No disc protrusions. Very mild narrowing of the foramen without significant stenosis. Small am ount of fluid in the facet joints. L4-L5: Mild annular disc bulging and osteophytic ridging. There is a very small central disc protrus ion. Mild ligamentum flavum disease and facet arthritis causing a mild central and bilateral subartic ular stenosis and mild bilateral foraminal stenosis. L5-S1: Mild annular disc bulging. Moderate focal central disc protrusion and annular fissure. There i s very slight contact or encroachment upon the S1 nerve roots bilaterally but no displacement. Mild b ilateral foraminal narrowing. Mild bilateral subarticular stenosis. Very mild ectasia abdominal aorta. No aneurysm. MR/MR lumbar spine wo con* [id number] IMPRESSION: 1. Mild central, subarticular and bilateral foraminal stenosis at L5-S1. 2. Focal central disc protrusion with annular fissure causing mild encroachmen t upon the S1 nerve roots bilaterally. 3. Mild central, bilateral subarticular and foraminal stenosis at L4-5 due to combination of facet and disc disease.
== END 2020-10-13 10:00 | disposition home or self-care (01) ==
PROVIDERS: PCP Physician Assistant; Visit Provider Physician Assistant
DX: M54.16 Radiculopathy, lumbar region (principal); M48.061 Spinal stenosis, lumbar region without neurogenic claudication; M53.3 Sacrococcygeal disorders, not elsewhere classified; M48.07 Spinal stenosis, lumbosacral region
CPT/HCPCS: 72148

== ENCOUNTER 2020-11-02 10:48 | Outpatient (CLI) | payer BC, SELFPAY ==
[2020-11-02 11:29] LABS: Basophils # 0.1 10^3/uL (0.0-0.1); Basophils % 0.7 %; Eosinophils # 0.1 10^3/uL (0.0-0.8); Eosinophils % 1.5 %; Hematocrit 43.3 % (37.0-47.0); Hemoglobin 14.8 g/dL (11.5-15.3); Lymphocytes # 2.9 10^3/uL (0.8-4.8); Lymphocytes % 34.8 %; Mean Corpuscular HGB Conc 34.2 g/dL (30.0-36.0); Mean Corpuscular Volume 99.5 fL (81-99); Mean Platelet Volume 9.4 fL (7.4-10.4); Monocytes # 0.7 10^3/uL (0.2-0.9); Monocytes % 8.8 %; Neutrophils # 4.53 10^3/uL (1.8-7.7); Nucleated Red Blood Cells % 0 %; Platelet Count 192 10^3/cmm (130-400); Red Blood Count 4.35 10^6/uL (4.1-5.3); Red Cell Distribution Width 12.2 % (12.1-15.1); White Blood Count 8.4 10^3/uL (4.0-10.0)
[2020-11-03 18:07] LABS: Alternaria Alternata (M6) Ige <0.10 kU/L; Alternaria Class 0; Bermuda Class 0; Bermuda Grass (G2) Ige <0.10 kU/L; Cat Dander (E1) Ige <0.10 kU/L; Cat Dander Class 0; Common Ragweed (Short) (W1) Ig <0.10 kU/L; D. Farinae Class 0; Dermatophagoides Class 0; Dermatophagoides Farinae (D2) <0.10 kU/L; Dermatophagoides Pteronyssinus <0.10 kU/L; Dog Dander (E5) Ige <0.10 kU/L; Dog Dander Class 0; Elm (T8) Ige <0.10 kU/L; Elm Class 0; English Plantain (W9) Ige <0.10 kU/L; English Plantain Class 0; House Dust (Greer) (H1) Ige <0.10 kU/L; House Dust (Hollister- Stier) <0.10 kU/L; House Dust Class 0; Immunoglobulin E 64 kU/L (<OR=114); Johnson Grass (G10) Ige <0.10 kU/L; Johnson Grass Cl 0; June Grass Class 0; June Grass(Kentucky Blue) (G8) <0.10 kU/L; Lamb'S Quarters (Goose Foot) <0.10 kU/L; Lamb'S Quarters Class 0; Maple (Box Elder) (T1) Ige <0.10 kU/L; Maple Class 0; Meadow Fescue (G4) Ige <0.10 kU/L; Meadow Fescue Class 0; Mucor Racemosus Class 0; Oak (T7) Ige <0.10 kU/L; Oak Class 0; Orchard Grass (Cocksfoot) (G3) <0.10 kU/L; Penicillium Class 0; Penicillium Notatum (M1) Ige <0.10 kU/L; Perennial Rye Grass (G5) Ige <0.10 kU/L; Perennial Rye Grass Class 0; Ragweeed Class 0; Rough Marsh Elder (W16) Ige <0.10 kU/L; Rough Marsh Elder Class 0; Sweet Vernal Class 0; Sweet Vernal Grass (G1) Ige <0.10 kU/L; Timothy Grass (G6) Ige <0.10 kU/L; Timothy Grass Class 0
[2020-11-04 19:42] LABS: Aspergillus Fumigatus, Igg Ab, 15.3 mg/L (<=102)
== END 2020-11-02 10:49 | disposition home or self-care (01) ==
PROVIDERS: PCP Physician Assistant; Visit Provider Internal Medicine Pulmonary Disease
DX: J45.909 Unspecified asthma, uncomplicated (principal)
CPT/HCPCS: 36415; 82785; 85025; 86003

== ENCOUNTER → 2020-11-19 12:44 | Outpatient (BNVA) | payer BC, SELFPAY | PROVIDERS: PCP Physician Assistant; Visit Provider Specialist | DX: G43.709 Chronic migraine without aura, not intractable, without status migrainosus (principal); M54.9 Dorsalgia, unspecified; G89.29 Other chronic pain; F17.210 Nicotine dependence, cigarettes, uncomplicated | CPT/HCPCS: 64615; J0585 ==

== ENCOUNTER → 2020-11-24 09:59 | Outpatient (BNVA) | payer BC, SELFPAY | PROVIDERS: PCP Physician Assistant; Referring Provider Internal Medicine Pulmonary Disease; Visit Provider Orthopaedic Surgery | DX: G89.29 Other chronic pain; M48.062 Spinal stenosis, lumbar region with neurogenic claudication | CPT/HCPCS: 72110 ==

== ENCOUNTER → 2020-12-02 08:30 | Outpatient (BNVA) | payer BC, SELFPAY | PROVIDERS: PCP Physician Assistant; Referring Provider Orthopaedic Surgery; Visit Provider Anesthesiology Pain Medicine | DX: G89.29 Other chronic pain (principal); M48.062 Spinal stenosis, lumbar region with neurogenic claudication; M51.27 Other intervertebral disc displacement, lumbosacral region; M47.816 Spondylosis without myelopathy or radiculopathy, lumbar region; M54.9 Dorsalgia, unspecified; M54.2 Cervicalgia; M79.605 Pain in left leg; F17.210 Nicotine dependence, cigarettes, uncomplicated | CPT/HCPCS: 99205; 99215; 99417 ==

== ENCOUNTER 2020-12-18 14:25 | Outpatient (CLI) | payer BC, SELFPAY ==
--- NOTE | 2020-12-18 14:32 | MR_ITS ---
WS: [id number] MRI CERVICAL SPINE NONCONTRAST HISTORY: ARTHROPATHIC PSORIASIS;HIGH RISK MEDICATION USE COMPARISON: 02/26/2019 Technique: Multiplanar, multisequence noncontrast imaging of the cervical spine. Straightening of the normal cervical lordosis. Less than 2 mm retrolisthesis of C5. Very slight anter ior wedging of T1 is similar to prior studies. Mild degenerative changes involving the C3 and C4 endp lates. Signal within the cervical cord is normal. Visualized posterior fossa is unremarkable. Craniocervical junction, C1 and C2 relationship, odontoid process and soft tissues are normal. C2-C3: Normal. C3-C4: Small LEFT vertebral osteophyte without significant stenosis. C4-C5: Mild osteophytic ridging extending greatest to the LEFT. Very mild LEFT foraminal stenosis. C5-C6: Mild annular disc bulging. Disc osteophyte complex extending to the LEFT causing moderate LEFT foraminal stenosis which is unchanged. C6-C7: Mild osteophytic ridging. Mild facet joint arthritis. C7-T1: Normal. Paraspinal soft tissue are normal. MR/MR cervical spin wo con* [id number] IMPRESSION: 1. Moderate LEFT foraminal stenosis at C5-6 due to disc osteophyte complex whi ch is unchanged. 2. Very mild LEFT foraminal stenosis at C4-5. 3. Mild facet joint arthritis at C6-7. 4. No significant central canal stenosis or interval change since 02/26/2019.
== END 2020-12-18 14:26 | disposition home or self-care (01) ==
LOC: RADSHAW 14:30
PROVIDERS: PCP Physician Assistant; Visit Provider Internal Medicine
DX: L40.50 Arthropathic psoriasis, unspecified (principal); Z79.899 Other long term (current) drug therapy; L40.9 Psoriasis, unspecified; M48.02 Spinal stenosis, cervical region; M47.812 Spondylosis without myelopathy or radiculopathy, cervical region
CPT/HCPCS: 72141

== ENCOUNTER 2021-02-14 22:52 | Inpatient (IN) | payer MEDICARE, BC, SELFPAY ==
[2021-02-14 22:54] VITALS: PULSE 84; RESP 24; O2SAT 90; BMI 34.7
[2021-02-14 23:16] LABS: Basophils # 0.1 10^3/uL (0.0-0.1); Basophils % 0.7 %; Eosinophils # 0.2 10^3/uL (0.0-0.8); Eosinophils % 1.7 %; Hematocrit 44.5 % (37.0-47.0); Hemoglobin 15.3 g/dL (11.5-15.3); Lymphocytes # 3.5 10^3/uL (0.8-4.8); Lymphocytes % 29.1 %; Mean Corpuscular HGB Conc 34.4 g/dL (30.0-36.0); Mean Corpuscular Hemoglobin 33.4 pg (28.0-34.0); Mean Corpuscular Volume 97.2 fl (81-99); Mean Platelet Volume 9.5 fL (7.4-10.4); Monocytes # 0.9 10^3/uL (0.2-0.9); Monocytes % 7.2 %; Neutrophils # 7.26 10^3/uL (1.8-7.7); Neutrophils % 60.9 %; Nucleated Red Blood Cells % 0 %; Platelet Count 183 10^3/cmm (130-400); Red Blood Count 4.58 10^6/uL (4.1-5.3); Red Cell Distribution Width 12.8 % (12.1-15.1); White Blood Count 11.9 10^3/uL (4.0-10.0)
[2021-02-14 23:36] LABS: Troponin(5th) Baseline 28 ng/L (0-10)
[2021-02-14 23:44] LABS: Alanine Aminotransferase 66 U/L (0-33); Albumin Level 4.4 g/dL (3.5-5.2); Alkaline Phosphatase 97 IU/L (35-105); Aspartate Amino Transferase 50 U/L (0-32); Blood Urea Nitrogen 9 mg/dL (6-20); Calcium 9.1 mg/dL (8.5-10.5); Carbon Dioxide 24 mmol/L (22-29); Chloride 108 mmol/L (98-107); Glomerular Filtration Rate 59.2 mL/min (90-130); Glucose 96 mg/dL (65-115); NT Pro B Type Natriuretic Pept 191 pg/mL (0-125); Osmolality Calculated 297 mOsm/kg (285-295); Sodium 144 mmol/L (136-145); Total Bilirubin 0.4 mg/dL (0.15-1.2); Total Protein 6.4 g/dL (6.6-8.7)
[2021-02-14 23:46] LABS: D Dimer 0.28 ug/mIFEU (0-0.59)
[2021-02-14 23:48] LABS: Anion Gap 15.9 (5-19); Potassium 3.9 mmol/L (3.5-5.1)
[2021-02-15] VITALS (96 sets, daily range): BP systolic 99–148; BP diastolic 57–96; PULSE 59–107; RESP 14–22; TEMP 36.4–36.5; O2SAT 89–97; BMI 35.9
[2021-02-15] MEDS: morphine 4 mg/mL SDV 1 mL IVP ×5 (00:37→22:25)
[2021-02-15] MEDS: aspirin 325 mg Tablet PO (00:39)
[2021-02-15 01:38] LABS: Troponin 5 2HR 53.39 ng/L (0-10)
[2021-02-15 02:01] LABS: Troponin 5 2HR Delta 25.39 ABS# (0-10)
[2021-02-15] MEDS: clopidogrel 300 mg Tablet PO (02:47)
[2021-02-15] MEDS: nitroglycerin 1 gm/inch oint Pkt 0.5 INCH TOPICAL ×2 (02:48→08:05)
[2021-02-15] MEDS: fentaNYL 50 mcg/mL INJ 2mL 75 MCG IVP (02:48)
[2021-02-15] MEDS: enoxaparin 100 mg/mL Syringe SUBCUT ×2 (02:48→18:45)
--- NOTE | 2021-02-15 05:05 | ECG_ITS ---
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 Measurements Intervals [place] Rate: 62 P: 62 VT: 180 QRS: 78 QRSD: 92 T: 49 QT: 451 QTc: 460 Interpretive Statements SINUS RHYTHM No previous ECG available for comparison Electronically Signed On 02-15-2021 13:18:34 CDT by Radha Morrison M.D. [id number]
[2021-02-15] MEDS: sodium chloride 0.9% 1,000 ML 75 ML IV (05:07)
--- NOTE | 2021-02-15 06:39 | P.HP_ITS ---
Providers/Chief Complaint Admitting Physician: Sallie Josue MD Chief Complaint: Chest Pains History of Present Illness Yulisa Laughlin is a 50 year old female who presented to the emergency room with chief complaint of chest pain. She was out walking her dog when she had sudden onset of substernal chest pain that radiated into her back and up into her jaw, into her shoulders. It was associated with some palpitations but not really short of breath, no significant nausea or vomiting, no diaphoresis. She has never had anything like this before. She does have some chronic pain issues but this is different than anything she is experienced before. In the emergency room, twelve-lead EKG showed nonspecific changes. 2-hour troponin delta was 25. She received some aspirin, nitroglycerin, Lovenox and pain medications. She is currently chest pain-free. She does have risk factors including hyperlipidemia, history of neurocardiogenic syncope. Also has a strong family history of coronary artery disease and continues to smoke. She is being admitted for further evaluation and treatment. Review of Systems Const: Denies: fever(s) or chills ENMT: Denies: throat pain or nasal congestion Card: Reports: chest pain, palpitations and swelling of feet/ankles (Right ankle); Denies: edema Resp: Denies: dyspnea, productive cough or non-productive cough GI: Reports: other (Baseline bowel function); Denies: abdominal pain, nausea, vomiting, hematochezia or melena : Reports: dysuria (Intermittent burning) Musc: Reports: back pain and extremity pain Skin/Breast: Denies: sores Neuro: Reports: headache(s) and dizziness; Denies: numbness in extremities or weakness in extremities Zhen/Lymph: Denies: easy bruising or easy bleeding Medications/Allergies Home Medications Medication Instructions Recorded Confirmed Last Taken Type ascorbic acid (vitamin C) [Vitamin 500 mg PO DAILY 06/27/19 02/15/21 09/09/20 History C] cetirizine [Zyrtec] 10 mg PO DAILY 06/27/19 02/15/21 09/09/20 History cholecalciferol (vitamin D3) 2,000 unit PO DAILY 06/27/19 02/15/21 09/09/20 History [Vitamin D3] epinephrine [EpiPen] 0.3 mg IM Q10M PRN #0 06/27/19 02/15/21 10/25/19 History escitalopram oxalate [Lexapro] 20 mg PO BEDTIME 06/27/19 02/15/21 09/10/20 History cyanocobalamin (vitamin B-12) 1,000 mcg PO DAILY 10/30/19 02/15/21 09/09/20 History [Vitamin B-12] gabapentin 800 mg tablet 800 mg PO QID #120 tab 08/31/20 02/15/21 09/10/20 Rx adalimumab 40 mg/0.8 mL 40 mg SUBCUT Q14D 09/22/20 02/15/21 Unknown History subcutaneous syringe kit albuterol sulfate 90 mcg/actuation 2 puff INHALATION Q6H PRN #8.5 g 11/02/20 02/15/21 Unknown Rx aerosol inhaler atorvastatin 40 mg PO BEDTIME 02/15/21 02/15/21 Unknown History fludrocortisone 0.1 mg PO BID 02/15/21 02/15/21 Unknown History naproxen 500 mg PO BID PRN 02/15/21 02/15/21 Unknown History tizanidine 4 mg PO BID 02/15/21 02/15/21 Unknown History topiramate 100 mg PO BID 02/15/21 02/15/21 Unknown History Allergies Allergy/AdvReac Type Severity Reaction Status Date / Time sertraline [From Zoloft] Allergy Unknown Unknown Verified 02/15/21 09:09 Iodinated Contrast Media Allergy ALGY-Difficulty Verified 02/15/21 09:09 Breathing shellfish derived Allergy ALGY-Anaphy Verified 02/15/21 09:09 laxis pregabalin [From Lyrica] AdvReac SUICIDAL Verified 02/15/21 09:09 THOUGHTS PFSH Acute PFSH: Medical History Asthma-COPD overlap syndrome Autonomic neuropathy Chronic migraine without aura, intractable, with status migrainosus Chronic neck and back pain COPD (chronic obstructive pulmonary disease) Depression Dyslipidemia Facet arthritis, degenerative, lumbar spine Fibromyalgia Functional movement disorder Herniation of intervertebral disc between L5 and S1 History of IBS History of pulmonary edema Lumbar stenosis with neurogenic claudication Migraine Neurocardiogenic syncope Psoriasis on adalimumab Sleep apnea Smoker Surgical History History of carpal tunnel repair LEFT Hx of section Hx of cholecystectomy Hx of hysterectomy Family History Mother Breast cancer Grandmother Breast cancer Father Stented coronary artery Social History Smoking and tobacco status: current every day smoker cigarettes [ Other cigarette details: 29yrhx [id number] ] Quit status (tobacco): considering quitting Second hand smoke exposure: Yes Alcohol intake: current Alcohol intake frequency: holidays/special occasions only Lives independently: Yes Household members: spouse Housing: House Marital status: Current occupational status: disabled Pets and animals: Yes Current gender identity: Female Vitals/I&O/Wt Last Vital Signs Temp 97.6 F 02/15/21 04:20 Pulse 66 02/15/21 05:59 Resp 18 02/15/21 05:10 BP 148/78 02/15/21 04:20 Pulse Ox 97 02/15/21 04:20 Weight last 48 hrs Weight 101.151 kg Weight 97.522 kg Physical Exam Narrative: EXAM NARRATIVE: Constitutional: Awake and alert, cooperative HEENT: Normocephalic, atraumatic, pupils are reactive, extraocular movements are intact, moist mucous membranes Neck: Supple Respiratory: Clear to auscultation bilaterally Cardiovascular: Regular rate and rhythm Abdomen: Soft, nontender, nondistended Extremities: No pitting edema Skin: No acute rashes noted Neuro: Speech clear, face symmetric, moves all extremities Psych: Normal affect Data : 02/14/21 23:11 02/14/21 23:11 Other Labs: Laboratory Results WBC 11.9 10^3/uL (4.0-10.0) H 02/14/21 23:11 RBC 4.58 10^6/uL (4.1-5.3) 02/14/21 23:11 Hgb 15.3 g/dL (11.5-15.3) 02/14/21 23:11 Hct 44.5 % (37.0-47.0) 02/14/21 23:11 MCV 97.2 fl (81-99) 02/14/21 23:11 MCH 33.4 pg (28.0-34.0) 02/14/21 23:11 MCHC 34.4 g/dL (30.0-36.0) 02/14/21 23:11 RDW 12.8 % (12.1-15.1) 02/14/21 23:11 Plt Count 183 10^3/cmm (130-400) 02/14/21 23:11 MPV 9.5 fL (7.4-10.4) 02/14/21 23:11 Neut % (Auto) 60.9 % 02/14/21 23:11 Lymph % (Auto) 29.1 % 02/14/21 23:11 [place] % (Auto) 7.2 % 02/14/21 23:11 Eos % (Auto) 1.7 % 02/14/21 23:11 Baso % (Auto) 0.7 % 02/14/21 23:11 Neut # (Auto) 7.26 10^3/uL (1.8-7.7) 02/14/21 23:11 Lymph # (Auto) 3.5 10^3/uL (0.8-4.8) 02/14/21 23:11 [place] # (Auto) 0.9 10^3/uL (0.2-0.9) 02/14/21 23:11 Eos # (Auto) 0.2 10^3/uL (0.0-0.8) 02/14/21 23:11 Baso # (Auto) 0.1 10^3/uL (0.0-0.1) 02/14/21 23:11 Nucleated RBC % (auto) 0 % 02/14/21 23:11 Nucleated RBCs # 0.0 /100WBC 02/14/21 23:11 D-Dimer 0.28 ug/mIFEU (0-0.59) 02/14/21 23:11 Sodium 144 mmol/L (136-145) 02/14/21 23:11 Potassium 3.9 mmol/L (3.5-5.1) 02/14/21 23:11 Chloride 108 mmol/L (98-107) H 02/14/21 23:11 Carbon Dioxide 24 mmol/L (22-29) 02/14/21 23:11 Anion Gap 15.9 (5-19) 02/14/21 23:11 BUN 9 mg/dL (6-20) 02/14/21 23:11 Creatinine 1.0 mg/dL (0.5-0.9) H 02/14/21 23:11 GFR Calculation 59.2 mL/min (90-130) L 02/14/21 23:11 Glucose 96 mg/dL (65-115) 02/14/21 23:11 Calculated Osmolality 297 mOsm/kg (285-295) H 02/14/21 23:11 Calcium 9.1 mg/dL (8.5-10.5) 02/14/21 23:11 Total Bilirubin 0.4 mg/dL (0.15-1.2) 02/14/21 23:11 AST 50 U/L (0-32) H 02/14/21 23:11 ALT 66 U/L (0-33) H 02/14/21 23:11 Alkaline Phosphatase 97 IU/L (35-105) 02/14/21 23:11 Troponin T Baseline 28 ng/L (0-10) H 02/14/21 23:11 Troponin T 120 Minute 53.39 ng/L (0-10) H 02/15/21 01:06 Delta Troponin T 25.39 ABS# (0-10) H* 02/15/21 01:06 NT-Pro-B Natriuret Pep 191 pg/mL (0-125) H 02/14/21 23:11 Total Protein 6.4 g/dL (6.6-8.7) L 02/14/21 23:11 Albumin 4.4 g/dL (3.5-5.2) 02/14/21 23:11 Globulin 2.0 g/dL (1.3-4.6) 02/14/21 23:11 A&P Assessment and plan (1) NSTEMI (non-ST elevated myocardial infarction): Status: Acute (2) Dyslipidemia: Status: Chronic (3) Psoriasis: Status: Chronic (4) Neurocardiogenic syncope: Status: Chronic (5) Asthma-COPD overlap syndrome: Status: Chronic (6) Chronic neck and back pain: Status: Chronic (7) History of IBS: Status: Chronic (8) Fibromyalgia: Status: Chronic (9) Sleep apnea: Status: Chronic Qualifiers: Sleep apnea type: unspecified type Qualified Code(s): G47.30 - Sleep apnea, unspecified (10) Smoker: Status: Chronic Additional A&P Information Dysuria Inpatient admission Continue serial cardiac enzymes Aspirin, statin, nitroglycerin Continue treatment dose Lovenox Echocardiogram Cardiology consultation -follows with Dr. Morrison on outpatient basis Keep n.p.o. for potential cardiac testing today Address home medications when list is clarified Hold Celebrex or other NSAIDs secondary to acute cardiac issues Monitor for respiratory symptoms CPAP with sleep Check urinalysis Supportive care otherwise Currently on treatment dose Lovenox Anticipate discharge home with outpatient follow-up Plans were discussed with patient and she was given an opportunity ask questions Full code Attestations Medical Necessity Statement*: Anticipated stay greater than 2 midnights in a patient presenting with chest pain found to have evidence of non-ST elevation [place], plans are as noted above. Coding Level of Care Code Acute Tin Recovery Worker for g Fwd Diagnoses NSTEMI (non-ST elevated myocardial infarction) I21.4 Dyslipidemia E78.5 Psoriasis L40.9 Neurocardiogenic syncope R55 Asthma-COPD overlap syndrome J44.9 Chronic neck and back pain M54.2; M54.9; G89.29 History of IBS Z87.19 Fibromyalgia M79.7 Sleep apnea G47.30 Sleep apnea type: unspecified type Smoker F17.200
--- NOTE | 2021-02-15 06:45 | USCV_ITS ---
Yulisa Laughlin Age: 50 Gender: F : 1970 Exam Date: 02/15/2021 12:58 Ordering Phys: Sallie Josue MD Technologist: Mirza Bryant Exam Location: [facility] – [place] Indication: NSTEMI BP: 101 / 66 HR: 59 Rhythm: Sinus Technical Quality: Adequate MEASUREMENTS (Male / Female) Normal Values 2D ECHO LV Diastolic Diameter PLAX 3.6 cm 4.2 - 5.9 / 3.9 - 5.3 cm LV Systolic Diameter PLAX 2.6 cm IVS Diastolic Thickness 1.0 cm 0.6 - 1.0 / 0.6 - 0.9 cm IVS Systolic Thickness 1.1 cm LVPW Diastolic Thickness 1.8 cm 0.6 - 1.0 / 0.6 - 0.9 cm LVPW Systolic Thickness 2.1 cm LVOT Diameter 2.0 cm LV Ejection Fraction 2D Teich 55.3 % LV Ejection Fraction MOD 2C 39.4 % LV Ejection Fraction 2C AL 41.5 % LA Diameter 3.1 cm LA Width 4.1 cm LA Height 5.0 cm RA Width 3.6 cm RA Height 4.4 cm Aorta at Sinotubular Diameter 2.9 cm DOPPLER AV Peak Velocity 93.7 cm/s LVOT Peak Velocity 75.0 cm/s AV Area Cont Eq vti 2.5 cm squared AV Area Cont Eq pk 2.6 cm squared MV Peak Velocity 543.0 cm/s MV Area PHT 3.0 cm squared Mitral E to A Ratio 1.6 MV E' Velocity 97.0 cm/s Mitral E to LV E' Septal Ratio 7.7 Right Atrial Pressure 3.0 mmHg PV Peak Velocity 52.0 cm/s RV Acceleration Time 0.2 s RV Ejection Time 0.3 s RV AcT/ET 0.6 FINDINGS Left Ventricle Normal left ventricular size, systolic function and wall thickness, with no regional wall motion abnormalities. Left ventricular ejection fraction is estimated at 60 %. Normal diastolic function. Right Ventricle Normal right ventricular size and systolic function. RVSP could not be calculated due to incomplete tricuspid regurgitation velocity profile. Right Atrium Normal right atrial size. Left Atrium Upper normal left atrial size. Mitral Valve Mildly thickened mitral valve. No mitral valve stenosis. Trace mitral valve regurgitation. Aortic Valve Thickened trileaflet aortic valve. No aortic valve stenosis. No aortic valve regurgitation. Tricuspid Valve Structurally normal tricuspid valve. Trace tricuspid valve regurgitation. Pulmonic Valve Pulmonic valve not well visualized. Pericardium No pericardial effusion. Aorta Normal size aortic root and proximal ascending aorta. CONCLUSIONS 1. Normal left ventricular size, systolic function and wall thickness, with no regional wall motion abnormalities. Left ventricular ejection fraction is estimated at 60 %. Normal diastolic function. 2. No significant valvular abnormality. 3. No prior similar stusies to compare. Radha Morrison MD (Electronically Signed) Final Date: 16 February 2021 11:29 S
--- NOTE | 2021-02-15 06:46 | PC.NURSE ---
Shift Note Frequent safety and comfort rounds continue. Orders and/or nursing care completed as indicated. Patient monitored for response to intervention and treatment(s). Education provided includes plan of care. Patient and/or retail customer service representative verbalized understanding. Will continue to monitor.
[2021-02-15 07:02] LABS: Troponin 5 6HR 53.62 ng/L (0-10)
[2021-02-15 07:08] LABS: Troponin 5 6HR Delta 25.62 ng/L (0-12)
--- NOTE | 2021-02-15 07:15 | W.ED.CHESTPA ---
HPI - Chest Pain General: Chief Complaint: Chest Pain Stated Complaint: Chest Pains Time Seen by Provider: 02/14/21 23:05 History of Present Illness: HPI narrative: 50-year-old female with no history of coronary disease. She does have a history of pulmonary embolism. She presents with central chest pain radiating to her neck and shoulders and down her arms. This happened at rest at home, and did not seem to improve. Is not worse with deep breathing. She has not been coughing more than usual. No fevers. It is significantly improved on arrival. MD complaint: chest pain Pertinent past history: other Onset (ago): hour(s) Timing of current episode: constant Prior episodes: No Onset: during rest Pain location: substernal Pain radiation: right arm, left arm and jaw/teeth Severity: moderate Quality: aching and heaviness Relieving factors: nothing Exacerbating factors: nothing Associated symptoms: Reports leg edema (Right ankle); Deny abdominal pain, diaphoresis, dyspnea, fever(s), nausea, palpitations or vomiting Treatment prior to arrival: none Review of Systems Const: Denies: fever(s) or diaphoresis Card: Reports: chest pain; Denies: palpitations Resp: Denies: dyspnea GI: Denies: abdominal pain, nausea or vomiting PFSH ED PFSH: Medical History Asthma-COPD overlap syndrome Autonomic neuropathy Chronic migraine without aura, intractable, with status migrainosus Chronic neck and back pain COPD (chronic obstructive pulmonary disease) Depression Dyslipidemia Facet arthritis, degenerative, lumbar spine Fibromyalgia Functional movement disorder Herniation of intervertebral disc between L5 and S1 History of IBS History of pulmonary edema Lumbar stenosis with neurogenic claudication Migraine Neurocardiogenic syncope Psoriasis on adalimumab Sleep apnea Smoker Surgical History History of carpal tunnel repair LEFT Hx of section Hx of cholecystectomy Hx of hysterectomy Family History Mother Breast cancer Grandmother Breast cancer Father Stented coronary artery Social History (Updated 02/15/21 @ 06:47 by Sallie Josue MD) Smoking and tobacco status: current every day smoker cigarettes [ Other cigarette details: [id number] [id number] ] Quit status (tobacco): considering quitting Second hand smoke exposure: Yes Alcohol intake: current Alcohol intake frequency: holidays/special occasions only Lives independently: Yes Household members: spouse Housing: House Marital status: Current occupational status: disabled Pets and animals: Yes Current gender identity: Female Physical Exam Const: COMMON NORMALS: no acute distress Chest: COMMONS NORMALS: normal inspection of the chest Resp: COMMON NORMALS: normal respiratory effort, No retractions, No use of accessory muscles and clear to auscultation bilaterally AUSCULTATION: clear to auscultation bilaterally Cardio: COMMON NORMALS: regular rate, regular rhythm and Peripheral pulses 2+ throughout RATE: regular rate RHYTHM: regular rhythm PERIPHERAL PULSES: Peripheral pulses 2+ throughout GI: COMMON NORMALS: Normal to inspection, nondistended, normoactive bowel sounds present, Soft to palpation and non-tender PALPATION: Yes Soft to palpation Neuro: SUJATHA COMA SCALE: document GCS findings Sujatha coma scale eye opening: Spontaneous [place] coma scale verbal response: Orientated Sujatha coma scale motor response: Obey commands Sujatha coma scale total score: 15 Course Consultations: Consultation #1: dada Vital Signs: Vital signs: Vital Signs Temperature 97.7 F 02/15/21 07:23 Pulse Rate 67 02/15/21 07:23 Respiratory Rate 16 02/15/21 07:23 Blood Pressure 134/83 02/15/21 07:23 Pulse Oximetry 95 02/15/21 07:23 MDM - Chest Pain MDM Narrative: Medical decision making narrative: 50-year-old female with chest discomfort. She still having some pressure, relieved by morphine here. White blood cell count is 11.9. Creatinine is 1. Troponin was initially mildly high, and her delta is 25 at 2 hours. Significant findings for possible non-STEMI. She is given Plavix, aspirin, nitroglycerin topically, and Lovenox. She will be observed in the [facility]. Her EKG showed a sinus rhythm with no acute ST changes. Chest x-ray was negative. Lab Data: Labs: Lab Results 02/14/21 02/14/21 02/14/21 Range/Units 23:11 23:11 23:11 WBC 11.9 H (4.0-10.0) 10^3/ uL RBC 4.58 (4.1-5.3) 10^6/u L Hgb 15.3 (11.5-15.3) g/dL Hct 44.5 (37.0-47.0) % MCV 97.2 (81-99) fl MCH 33.4 (28.0-34.0) pg MCHC 34.4 (30.0-36.0) g/dL RDW 12.8 (12.1-15.1) % Plt Count 183 (130-400) 10^3/c mm MPV 9.5 (7.4-10.4) fL Neut % (Auto) 60.9 % Lymph % (Auto) 29.1 % [place] % (Auto) 7.2 % Eos % (Auto) 1.7 % Baso % (Auto) 0.7 % Neut # (Auto) 7.26 (1.8-7.7) 10^3/u L Lymph # (Auto) 3.5 (0.8-4.8) 10^3/u L [place] # (Auto) 0.9 (0.2-0.9) 10^3/u L Eos # (Auto) 0.2 (0.0-0.8) 10^3/u L Baso # (Auto) 0.1 (0.0-0.1) 10^3/u L Nucleated RBC % (a uto) 0 % Nucleated RBCs # 0.0 /100WBC D-Dimer 0.28 (0-0.59) ug/mIFE U Sodium 144 (136-145) mmol/L Potassium 3.9 (3.5-5.1) mmol/L Chloride 108 H (98-107) mmol/L Carbon Dioxide 24 (22-29) mmol/L Anion Gap 15.9 (5-19) BUN 9 (6-20) mg/dL Creatinine 1.0 H (0.5-0.9) mg/dL GFR Calculation 59.2 L (90-130) mL/min Glucose 96 (65-115) mg/dL Calculated Osmolal ity 297 H (285-295) mOsm/k g Calcium 9.1 (8.5-10.5) mg/dL Total Bilirubin 0.4 (0.15-1.2) mg/dL AST 50 H (0-32) U/L ALT 66 H (0-33) U/L Alkaline Phosphata se 97 (35-105) IU/L Troponin T Baselin e (0-10) ng/L Troponin T 120 Min rey (0-10) ng/L Delta Troponin T (0-10) ABS# NT-Pro-B Natriuret Pep 191 H (0-125) pg/mL Total Protein 6.4 L (6.6-8.7) g/dL Albumin 4.4 (3.5-5.2) g/dL Globulin 2.0 (1.3-4.6) g/dL 02/14/21 02/15/21 Range/Units 23:11 01:06 WBC (4.0-10.0) 10^3/ uL RBC (4.1-5.3) 10^6/u L Hgb (11.5-15.3) g/dL Hct (37.0-47.0) % MCV (81-99) fl MCH (28.0-34.0) pg MCHC (30.0-36.0) g/dL RDW (12.1-15.1) % Plt Count (130-400) 10^3/c mm MPV (7.4-10.4) fL Neut % (Auto) % Lymph % (Auto) % [place] % (Auto) % Eos % (Auto) % Baso % (Auto) % Neut # (Auto) (1.8-7.7) 10^3/u L Lymph # (Auto) (0.8-4.8) 10^3/u L [place] # (Auto) (0.2-0.9) 10^3/u L Eos # (Auto) (0.0-0.8) 10^3/u L Baso # (Auto) (0.0-0.1) 10^3/u L Nucleated RBC % (a uto) % Nucleated RBCs # /100WBC D-Dimer (0-0.59) ug/mIFE U Sodium (136-145) mmol/L Potassium (3.5-5.1) mmol/L Chloride (98-107) mmol/L Carbon Dioxide (22-29) mmol/L Anion Gap (5-19) BUN (6-20) mg/dL Creatinine (0.5-0.9) mg/dL GFR Calculation (90-130) mL/min Glucose (65-115) mg/dL Calculated Osmolal ity (285-295) mOsm/k g Calcium (8.5-10.5) mg/dL Total Bilirubin (0.15-1.2) mg/dL AST (0-32) U/L ALT (0-33) U/L Alkaline Phosphata se (35-105) IU/L Troponin T Baselin e 28 H (0-10) ng/L Troponin T 120 Min rey 53.39 H (0-10) ng/L Delta Troponin T 25.39 H* (0-10) ABS# NT-Pro-B Natriuret Pep (0-125) pg/mL Total Protein (6.6-8.7) g/dL Albumin (3.5-5.2) g/dL Globulin (1.3-4.6) g/dL Discharge Plan Discharge Patient Disposition: Admitted As Inpatient Admit Provider: Sallie Josue Clinical Impression: NSTEMI (non-ST elevated myocardial infarction) Condition: Stable Coding Level of Care Code ED Size Worker for [facility] Fwd Exam Detailed
[2021-02-15 07:45] LABS: Chol HDL Ratio 3.39 mg/dL (0.0-4.40); Cholesterol 129 mg/dL (0-200); HDL Cholesterol 38 mg/dL (60-100); LDL Cholesterol Calculated 56 mg/dL (50-129); LDL HDL Ratio 1.47 RATIO (0.00-3.22); Triglycerides 173 mg/dL (0-150)
[2021-02-15] MEDS: famotidine 20 mg Tablet PO ×2 (08:05→17:38)
[2021-02-15 08:10] LABS: Estmated Average Glucose 100; Hemoglobin A1C 5.1 % (4.0-6.0)
--- NOTE | 2021-02-15 09:06 | PC.PHAR ---
pt states she takes care of her own medications-pt states she got lexapro 20mg daily from a dr in [facility] and states she is almost out-pt states she dced her singulair rx last filled on 11/02/20 90d/s pt states she didnt like the way it made her feel-rx filled on 02/09/21 for tizanidine 4mg po q8h prn-pt states she takes 4mg bid-pt states she has a build up of gabapentin and hasnt filled it recently-pt states she was taking tid and thats how she got the build up pt states she is taking qid now-pt states she hasnt taken her vitamin c, vitamin d3 and vitamin b-12 for a couple weeks-
--- NOTE | 2021-02-15 10:22 | P.CONIM_ITS ---
Providers/Reason For Consult Consulting Physician/Specialty*: Dr. Morrison, cardiology Reason for Consult*: NSTEMI Attending Physician: Sallie Josue MD History of Present Illness History of Present Illness Yulisa Laughlin is a 50 year old female with PMHx of chronic active smoker (currently has cut back to 4 cigarettes/day), fibromyalgia, h/o migraine, h/o back injury and h/o PE in 2004, h/o plaque psoriasis with long history of dizziness and syncope. She underwent extensive testing in 2014 and was diagnosed with autonomic dysfunction. She also has family history of coronary artery disease with paternal uncle who with massive HI in his 40s and father with myocardial infarction and stent placements in his 40s as well. She is currently taking 1 tab of fludrocortisone. She was standing outside her house when she had sudden onset retrosternal chest pain with radiation to her jaw without significant shortness of breath nausea vomiting or diaphoresis. Her drove her to the ER. EKG did not show any significant ST-T wave changes however her troponins were elevated. She received clopidogrel 300 mg x 1 and Lovenox. I have been asked to assist in evaluating further management. This morning patient continues to have chest discomfort in spite of morphine and nitro patch. She has been started on nitroglycerin drip. Currently her chest discomfort is radiating to her left shoulder arm forearm all the way to her fingers. She has been vaccinated for Covid 19 with Pfizer vaccine with second dose in December 2020. No fever or chills or sick contacts. Occasional cough unchanged from baseline. No orthopnea paroxysmal nocturnal dyspnea or leg swelling. She gives history of iodine dye allergy that causes difficulty breathing. She has been premedicated with steroids for iodine allergy before and she tolerated that without any issues. Review of Systems Const: Denies: fever(s) or chills ENMT: Denies: throat pain or nasal congestion Card: Reports: chest pain; Denies: palpitations, edema or swelling of feet/ankles (Right ankle) Resp: Denies: dyspnea, productive cough or non-productive cough GI: Denies: abdominal pain, nausea, vomiting, hematochezia or melena : Denies: dysuria or hematuria Musc: Reports: back pain and extremity pain Skin/Breast: Denies: sores Neuro: Reports: headache(s) and dizziness; Denies: numbness in extremities or weakness in extremities Zhen/Lymph: Denies: easy bruising or easy bleeding Meds/Allergies Home Medications and Allergies Home Medications Medication Instructions Recorded Confirmed Last Taken Type ascorbic acid (vitamin C) [Vitamin 500 mg PO DAILY 06/27/19 02/15/21 09/09/20 History C] cetirizine [Zyrtec] 10 mg PO DAILY 06/27/19 02/15/21 09/09/20 History cholecalciferol (vitamin D3) 2,000 unit PO DAILY 06/27/19 02/15/21 09/09/20 History [Vitamin D3] epinephrine [EpiPen] 0.3 mg IM Q10M PRN #0 06/27/19 02/15/21 10/25/19 History escitalopram oxalate [Lexapro] 20 mg PO BEDTIME 06/27/19 02/15/21 09/10/20 History cyanocobalamin (vitamin B-12) 1,000 mcg PO DAILY 10/30/19 02/15/21 09/09/20 History [Vitamin B-12] gabapentin 800 mg tablet 800 mg PO QID #120 tab 08/31/20 02/15/21 09/10/20 Rx adalimumab 40 mg/0.8 mL 40 mg SUBCUT Q14D 09/22/20 02/15/21 Unknown History subcutaneous syringe kit albuterol sulfate 90 mcg/actuation 2 puff INHALATION Q6H PRN #8.5 g 11/02/20 02/15/21 Unknown Rx aerosol inhaler atorvastatin 40 mg PO BEDTIME 02/15/21 02/15/21 Unknown History fludrocortisone 0.1 mg PO BID 02/15/21 02/15/21 Unknown History naproxen 500 mg PO BID PRN 02/15/21 02/15/21 Unknown History tizanidine 4 mg PO BID 02/15/21 02/15/21 Unknown History topiramate 100 mg PO BID 02/15/21 02/15/21 Unknown History Allergies Allergy/AdvReac Type Severity Reaction Status Date / Time sertraline [From Zoloft] Allergy Unknown Unknown Verified 02/15/21 09:09 Iodinated Contrast Media Allergy ALGY-Difficulty Verified 02/15/21 09:09 Breathing shellfish derived Allergy ALGY-Anaphy Verified 02/15/21 09:09 laxis pregabalin [From Lyrica] AdvReac SUICIDAL Verified 02/15/21 09:09 THOUGHTS Current Medications Current Medications Generic Name Dose Route Start Last Admin Trade Name Hugh PRN Reason Stop Dose Admin Famotidine 20 mg 02/15/21 09:00 02/15/21 08:05 Famotidine 20 Mg Tablet PO 20 mg BID ETHAN Administration Sodium Chloride 1,000 mls @ 75 mls/hr 02/15/21 04:20 02/15/21 05:07 Sodium Chloride 0.9% IV 75 mls/hr .[id number] ETHAN Administration Morphine Sulfate 4 mg 02/15/21 04:20 02/15/21 05:10 Morphine 4 Mg/Ml Sdv 1 Ml IVP 4 mg Q4H PRN Administration SEVERE PAIN Nitroglycerin 0.5 inch 02/15/21 09:00 02/15/21 08:05 Nitroglycerin 1 Gm/Inch Oint Pkt TOPICAL 0.5 inch Q6H ETHAN Administration PFSH Acute PFSH: Medical History Asthma-COPD overlap syndrome Autonomic neuropathy Chronic migraine without aura, intractable, with status migrainosus Chronic neck and back pain COPD (chronic obstructive pulmonary disease) Depression Dyslipidemia Facet arthritis, degenerative, lumbar spine Fibromyalgia Functional movement disorder Herniation of intervertebral disc between L5 and S1 History of IBS History of pulmonary edema Lumbar stenosis with neurogenic claudication Migraine Neurocardiogenic syncope Psoriasis on adalimumab Sleep apnea Smoker Surgical History History of carpal tunnel repair LEFT Hx of section Hx of cholecystectomy Hx of hysterectomy Family History Mother Breast cancer Grandmother Breast cancer Father Stented coronary artery Social History Smoking and tobacco status: current every day smoker cigarettes [ Other cigarette details: [id number] ] Quit status (tobacco): considering quitting Second hand smoke exposure: Yes Alcohol intake: current Alcohol intake frequency: holidays/special occasions only Lives independently: Yes Household members: spouse Housing: House Marital status: Current occupational status: disabled Pets and animals: Yes Current gender identity: Female Vitals/I&O/Wt Last Vital Signs Temp 97.7 F 02/15/21 08:00 Pulse 67 02/15/21 08:00 Resp 18 02/15/21 08:06 BP 134/83 02/15/21 08:00 Pulse Ox 95 02/15/21 08:06 Weight last 48 hrs Weight 223 lb Weight 215 lb Physical Exam Narrative: EXAM NARRATIVE: GENERAL: Obese woman laying in bed HEENT: Pupils equal round reactive to light. No pallor or icterus. NECK: No JVD. No carotid bruit. CARDIOVASCULAR SYSTEM: S1-S2 regular. No murmur rubs or gallops. RESPIRATORY SYSTEM: Chest clear to auscultation. No wheezes rhonchi or rubs heard. No use of accessory muscles. ABDOMEN: Soft, nontender and nondistended. Normal bowel sounds present. EXTREMITIES: No cyanosis. No edema. MEDICAL TECHNICIAN: Patient is alert oriented ?3. No focal neurological deficits. SKIN: Normal turgor and temperature. PSYCH: Normal insight and judgment. Data Labs: Other Labs: Lipid panel total cholesterol 129, triglyceride 173, LDL 56 and HDL 38. Hemoglobin A1c of 5.1. AST 50 and ALT 66. NT proBNP of 191. Other Data: Attestation for Other Data: I personally reviewed and interpreted the following: Other data: EKG: sinus rhythm, rightward axis. No prior EKG to compare. Echo (09/2016): LVEF 55-60%, trivial pericardial effusion. Lexiscan MPI (07/2016): LVEF-62%, normal MPI. A&P Assessment and plan (1) NSTEMI (non-ST elevated myocardial infarction): Non-ST elevation acute coronary syndrome. Baseline troponin T of 28 which increased at 2 hours to 53 and at 6 hours of 53.6. -No significant ST-T wave changes on EKG. Echocardiogram is pending. -Patient continues to have chest discomfort towards improving with nitroglycerin drip. -Received Plavix 300 mg p.o. x1 and Lovenox yesterday in the ER. Start on Plavix 75 mg and continue aspirin. -No beta-lay given heart rate in 50s. Continue statin. Plan for cath today later with Dr. Marte.Risks and benefits were discussed with the patients. Potential complications including the risk of HI stroke or coronary perforation and arrhythmias discussed in detail with patient.she voiced her understanding. Plan is to proceed for the procedure at the earliest. -She will be premedicated given history of iodine contrast allergy. Status: Acute (2) Dyslipidemia: Status: Chronic (3) Asthma-COPD overlap syndrome: Status: Chronic (4) Sleep apnea: Status: Chronic Qualifiers: Sleep apnea type: unspecified type Qualified Code(s): G47.30 - Sleep apnea, unspecified (5) Smoker: Status: Chronic Additional A&P Information Family history of CAD History of neurocardiogenic syncope Thank you for allowing me to participate in patient's care. Please feel free to call with questions or concerns. Consult Attestations Time Spent in Patient Care: Greater than 35 minutes (>than 50% of time spent in counselling and/or direct pt care on unit) . Coding Level of Care Code Acute Equipment Cleaner And Tester for Erwin Braun Diagnoses NSTEMI (non-ST elevated myocardial infarction) I21.4 Dyslipidemia E78.5 Asthma-COPD overlap syndrome J44.9 Sleep apnea G47.30 Sleep apnea type: unspecified type Smoker F17.200
[2021-02-15] MEDS: nitroglycerin drip 50 MG/250 ML PREMIX IV (10:23)
--- NOTE | 2021-02-15 10:44 | XR_ITS ---
WS: [id number] Exam: XR chest 1V portable [id number] Date/Time of Exam: 02/15/2021 10:48 AM Reason For Exam: cp/sob No comparisons. There is mild infiltrate in the right lower lung zone. This could represent chronic change or develop ing pneumonia. The left lung is clear. Normal cardiomediastinal structures and bony elements. Calcifi ed granulomas scattered throughout both lungs. XR/XR chest 1V portable [id number] IMPRESSION: 1. Mild infiltrate in the right lower lung zone that may represent chronic reynoso ge or developing pneumonia.
--- NOTE | 2021-02-15 10:45 | ECG_ITS ---
[facility] Test Date: 2021-02-15 Pat Name: Yulias Laughlin Department: Room: 105 Gender: Female Lead Pharmacy Technician: : 1970 Requested By: Radha Morrison Order Number: [id number] Desmond MD: Radha Morrison M.D. Measurements Intervals [place] Rate: 58 P: 62 VA: 173 QRS: 76 QRSD: 93 T: 46 QT: 444 QTc: 437 Interpretive Statements SINUS BRADYCARDIA Compared to ECG 02/15/2021 05:40:59 Sinus rhythm no longer present Electronically Signed On 02-15-2021 13:15:01 CDT by Radha Morrison M.D. [id number]
--- NOTE | 2021-02-15 11:25 | PM.PN ---
Subjective Subjective: Interval history: Patient was complaining of chest discomfort with Nitropaste on her chest, nurse was updated, nitro drip initiated to be started at 15 and titrate in next 1 hour to 20 if her symptoms persist, Dr. Morrison to see her today, updated Patient is on ACS protocol, n.p.o. Describing her chest discomfort as pressure-like sensation substernal 5/10 no associated nausea, vomiting or shortness of breath Vitals/I&O/Wt Last Vital Signs Temp 97.7 F 02/15/21 08:00 Pulse 67 02/15/21 08:00 Resp 18 02/15/21 08:06 BP 134/83 02/15/21 08:00 Pulse Ox 95 02/15/21 08:06 02/14/21 02/15/21 02/15/21 22:59 06:59 14:59 Intake Total 3.675 / 3.675 Balance 3.675 / 3.675 Weight last 48 hrs Weight 101.151 kg Weight 97.522 kg Physical Exam Narrative: EXAM NARRATIVE: female complaining of mild chest discomfort at rest S1, S2 sinus rhythm no signs of heart failure Dry mucous membranes EOMI, PERRLA No neurological deficit Bilateral breath sounds without adventitious rhonchi or crackles Abdomen soft Data : 02/14/21 23:11 02/14/21 23:11 A&P Assessment and plan (1) NSTEMI (non-ST elevated myocardial infarction): Status: Acute (2) Depression: Status: Chronic (3) Chronic neck and back pain: Status: Chronic (4) Facet arthritis, degenerative, lumbar spine: Status: Chronic (5) Lumbar stenosis with neurogenic claudication: Status: Chronic (6) Asthma-COPD overlap syndrome: Status: Chronic (7) Chronic migraine without aura, intractable, with status migrainosus: Status: Chronic (8) Neurocardiogenic syncope: Status: Chronic (9) Psoriasis: Status: Chronic Additional A&P Information NSTEMI Active chest pain currently on nitro drip at [address] Morrison notified Patient is n.p.o., likely would need an angiogram considering significant family history, Patient is describing her symptoms as substernal chest discomfort No active signs of murmur or congestive heart failure Likely will need an angiogram for her persistent symptoms Autonomic dysfunction Continue fludrocortisone Blood pressure stable Sleep apnea: CPAP overnight DVT prophylaxis therapeutic Lovenox will suffice N.p.o. Full code Attestations Medical Necessity Statement*: Awaiting cardiology evaluation Time Spent in Patient Care: less than 15 minutes Coding Level of Care Code Acute Take Out Waiter/Waitress for Chg Fwd Diagnoses NSTEMI (non-ST elevated myocardial infarction) I21.4 Depression F32.9 Chronic neck and back pain M54.2; M54.9; G89.29 Facet arthritis, degenerative, lumbar spine M47.816 Lumbar stenosis with neurogenic claudication M48.062 Asthma-COPD overlap syndrome J44.9 Chronic migraine without aura, intractable, with status migrainosus G43.711 Neurocardiogenic syncope R55 Psoriasis L40.9
--- NOTE | 2021-02-15 11:26 | XACV_ITS ---
Exam Room: [facility] Ht: 168 cm Wt: 101 kg BSA: 2.21 m2 Gender: Female : 1970 Any Known Allergies: Other Exam Priority: Routine Indication(s): - Non-ST elevation NE Procedure(s): Procedure Description: Diagnostic procedure Procedure Description: Left Heart Catheterization Procedure Description: Left ventriculography Procedure Description: Coronary Angiography Diagnostic Cath Status: Urgent Diagnostic Findings * Proximal Right Coronary Artery to Mid Right Coronary Artery: total occlusion, JOHAN: 0 flow. Chronic total occlusion. PDA/PLV receive flow from collaterals from the left system. * INDICATION: Non-ST elevation NE. * Left Main has no disease. * Proximal Left Anterior Descending: critical 95% stenosis, JOHAN: 3 flow. * Distal Left Anterior Descending: severe 90% stenosis, JOHAN: 3 flow. * Proximal Circumflex: significant 80% stenosis, JOHAN: 3 flow. * Coronary angiography shows right dominance. Conclusions 1. Triple vessel severe coronary artery disease. 2. Normal left ventricular systolic function. Ejection fraction of 55%. Recommendations * Given patient's triple-vessel disease including LAD, left circumflex and RCA, we will proceed with CT surgery consult for coronary bypass surgery. * Continue nitro drip. * Continue aspirin. Hold Plavix in anticipation of CABG. * High intensity statin therapy. Interventional RX Recommendation: CABG Diagnostic RX Recommendation: CABG Anticoagulation: Heparin Ventriculography Ejection Fraction: 55.0 % Pressures Phase:Rest AO : 124 / 70 ( 93 ) @ 3:53:00 PM 123 / 69 ( 92 ) @ 3:53:00 PM 123 / 69 ( 92 ) @ 3:53:00 PM LV : 135 / 6 / 27 @ 3:51:00 PM 131 / 7 / 27 @ 3:52:00 PM 131 / 6 / 26 @ 3:53:00 PM Valves Phase:DefaultPhase AV : 7.0 @ 5:06:06 PM AV Mean Gradient: 17.0 @ 5:06:06 PM Clinical Evaluation EBL: 5mL-10mL Procedural Details Procedure Consent Obtained. Current Diagnosis : NSTEMI. Pre-Procedure Time Out. Identified patient by full name and date of as verbalized by the patient/guarantor. Does the consent match the physician's order: Yes. Accurate & Complete Informed Consent: Yes. Inpatient/Outpatient History & Physical on Chart: Yes. If H&P is completed, is and addenduem needed: N/A. Visualize and Verify Site with Patient/Guarantor: N/A. Relevant Radiology Images available: Yes. The risks, benefits, and alternatives of sedation and/or procedure were discussed by physician. The patient agrees to continue. Procedure started. [facility] Clinical Fraility Score: 2: Well. Aco Coordinator Indications: ACS <= 24 hours. Chest Pain Symptom Assessment: Typical Angina Symptoms. Cardiovascular Instability: No. Correct patient, site and procedure confirmed by cath team. Current diagnosis: NSTEMI. PERRLA. Strong, equal hand metal sash setter bilaterally. Lungs clear x 5 lobes. IV Site on Arrival: 18 gauge in the right anticubital. IV Fluids: 0.9% NaCl at KVO. 800 mL infused prior to medical laboratory technician. Pre Procedural Pulses: bilateral dorsalis pedis was 3+. Pre Procedural Pulses: bilateral posterior tibial was 3+. Pre Procedural Pulses: bilateral radial was 3+. Oxygen started at 2liters/min via nasal canula. right groin was prepped with chloroprep then draped in the usual sterile fashion. right radial was prepped with chloroprep then draped in the usual sterile fashion. Physician notified. Patient's family unavailable. Equipment: 6F - Radial. Cardiac Cath Pack. ACIST Manifold Kit Model BT 2000. Heparinized Saline (2 units/mL), 1000 mL bag. Physician arrived. Physician scrubbed in. Immediate Pre-Procedure Time Out. Correct Patient: Yes; Correct Procedure: Yes; Correct Site: Yes; Correct Patient Position: Yes; Correct Supplies: Yes; Dried Flammable Prep: Yes; Blood Products Available: N/A. Lidocaine 1% infiltrated to the right radial. Arterial access obtained. A 5 montserratian TIG catheter in over the exchange wire. Multiple views taken of left coronary artery. Catheter redirected to the RCA. Multiple views taken of right coronary artery. Catheter removed over the exchange wire. A 5 montserratian Angled Pig catheter in over the exchange wire. EDP Sample taken: LV 135/6,27; HR: 73 BPM; SpO2: 96%. LV gram performed in [place] @ 10 mL/second for a total of 30 mL. EDP Sample taken: LV 131/7,27; HR: 77 BPM; SpO2: 96%. Pullback taken: LV 131/6,26; AO 124/70(93); Mean: 17mmHg, Peak to Peak: 7mmHg, SEP: 7sec/min; HR: 79 BPM; SpO2: 94%. Catheter removed over the exchange wire. Physician review of cine films. Physician scrubbed out. TR band placed. Hemostasis obtained. A TR Band was successful obtaining hemostatsis at the Right Radial artery insertion site. Post Procedure: Pulses reassessed and unchanged. No VTE prophylaxis required. Medication's Wasted: Heparin = 1000 units. Medication's Wasted: Lidocaine 1% = 18 mL. Medication's Wasted: Nitro = 49.8 mg. Total IV fluids: 38.9 mL. PCI Indication: NSTE. Post-op diagnosis: Severe 3 vessel disease. Complications: none. Estimated blood loss: 5mL-10mL. Dr. Marte updated the spouse, Thang, via telephone. Procedure completed. Patient transferred by wheelchair to 1st floor. Vital chart was stopped. Access Site Site: Right Radial artery Sheath Size: 6 Fr Hemostasis Method: TR Band Hemostasis Success: Successful Procedure Medications Start: 4:30 PM Stop: 4:30 PM Medication: Versed Amount: 1 mg Route: I.V. Start: 4:30 PM Stop: 4:30 PM Medication: Fentanyl Amount: 50 mcg Route: I.V. Start: 4:31 PM Stop: 4:31 PM Medication: Solu-Medrol (methylprednisolone) Amount: 125 mg Route: I.V. Start: 4:35 PM Stop: 4:35 PM Medication: Versed Amount: 1 mg Route: I.V. Start: 4:40 PM Stop: 4:40 PM Medication: Nitrogylcerin Amount: 200 mcg Route: I.A. Start: 4:42 PM Stop: 4:42 PM Medication: Heparin Amount: 5000 units Route: I.V. Start: 4:50 PM Stop: 4:50 PM Medication: Fentanyl Amount: 25 mcg Route: I.V. I, the attending physician, have reviewed and verified all procedure medications. Yes, all medications given per verbal order History/Risk Factors Hypertension: No Dyslipidemia: Yes Peripheral Arterial Disease (PAD): No Myocardial Infarction (NE): No Obesity: Yes Renal Disease: No Tobacco Use: Current/Recent(w/in 1 year) Prior Interventions PCI: No CABG: No Valve Surgery: No Report Signatures Finalized by Mathew Marte MD on 02/27/2021 05:01 PM
[2021-02-15 12:31] LABS: SARS Covid-2 Antigen Negative (Negative)
[2021-02-15] MEDS: sodium chloride 0.9% 1,000 ML 50 ML IV (13:14)
[2021-02-15] MEDS: aspirin 81 mg Chew Tablet 324 MG PO (13:15)
[2021-02-15] MEDS: clopidogrel 75 mg Tablet PO (13:15)
[2021-02-15] MEDS: gabapentin 400 mg Capsule 800 MG PO ×2 (13:23→22:00)
--- NOTE | 2021-02-15 13:39 | PC.NURSE ---
dr weaver stated to hold 1400 lovenox..angiogram at 1630
[2021-02-15 15:31] LABS: Add Urine Microscopic? YES; Bilirubin Urine Neg (Negative); Blood Urine Trace (Negative); Glucose Urine UA Norm (Normal); Ketones Urine Negative (Negative); Leukocyte Esterase Urine Negative (Negative); Nitrate Urine Negative (Negative); Protein Urine Neg (Negative); Specific Gravity, Urine 1.015 (1.005-1.030); Urine Appearance Clear (CLEAR); Urine Color Yellow (Yellow); Urobilinogen Urine Norm (Negative); pH Urine 5 (5-7)
[2021-02-15] MEDS: diphenhydrAMINE 50 mg/mL SDV 1mL IVP (15:31)
[2021-02-15 15:32] LABS: Add Urine Culture? No; Bacteria Urine TRACE /hpf; Squamous Epithelial Cell Urine 0-4 /hpf (0-5); WBC Urine RARE /hpf (0-5)
--- NOTE | 2021-02-15 16:27 | PC.NURSE ---
to cardiac labor delivery specialist via w/c at 3072
--- NOTE | 2021-02-15 16:32 | W.PM.OPSUD ---
Surgery/Procedure H&P Update DATE OF PROCEDURE: February 15, 2021 DATE H&P PERFORMED: 02/15/21 H&P UPDATE INFORMATION: I have reviewed H&P completed within last 30 days, I have examined patient prior to procedure and No changes to prior documentation PREOP DIAGNOSIS: NSTEMI PRIMARY INDICATION FOR PROCEDURE: NSTEMI PLANNED PROCEDURE: Operation Date: 02/15/21 16:30 Proposed Procedures p Cardiac Catheterization(Not Applicable) - Mathew Marte M.D Possible percutaneous coronary intervention PATIENT REASSESSED PRIOR TO SEDATION, WITH NO CHANGE NOTED: Yes PHYSICAL EXAM: alert, oriented x 3, clear to auscultation bilaterally and regular rate & rhythm AIRWAY EVAL/ANESTHESIA PLAN: ASA III, Monitored Anesthesia, Local Anesthesia, Risks, benefits & alternatives of sedation and/or procedure discussed and Patient agrees to continue as planned
[2021-02-15] MEDS: fludrocortisone 0.1 mg Tablet PO (17:38)
[2021-02-15] MEDS: acetaminophen 325 mg Tablet 650 MG PO (17:38)
[2021-02-15] MEDS: sodium chloride 0.9% 1,000 ML 100 ML IV (17:41)
--- NOTE | 2021-02-15 18:58 | PC.NURSE ---
lovenox was given as ordered at 1845.dr weaver is in chart.
--- NOTE | 2021-02-15 19:29 | PC.NURSE ---
received from cardiac flue dust laborer at 1715 via w/c.report received.pt is alert and awake.denies pain at present.sr on monitor.right wrist with tr band on and inflated.right hand is warm to touch and with brisk capillary refill.palpable radial pulse noted distal to tr band.no hematoma noted.instructed in activity restrictions s/p radial artery procedure...and instructed to notify staff for any bleeding,pain,numbness..or for any concerns at all.pt verb understanding of instructions
--- NOTE | 2021-02-15 19:54 | PC.NURSE ---
Shift Note Frequent safety and comfort rounds continue. Orders and/or nursing care completed as indicated. Patient monitored for response to intervention and treatment(s). Education provided includespost radial artery procedure activity restrictions[]. Patient and/or labor relations representative verb understanding of instructions]. Will continue to monitor.
[2021-02-15] MEDS: atorvastatin 40 mg Tablet PO (22:00)
[2021-02-15] MEDS: escitalopram 10 mg Tablet 20 MG PO (22:01)
[2021-02-16] VITALS (35 sets, daily range): BP systolic 104–133; BP diastolic 61–76; PULSE 60–90; RESP 13–22; TEMP 36.4–36.8; O2SAT 90–97
[2021-02-16 04:58] LABS: Basophils % 0.2 %; Hematocrit 40.9 % (37.0-47.0); Hemoglobin 13.6 g/dL (11.5-15.3); Lymphocytes # 1.3 10^3/uL (0.8-4.8); Lymphocytes % 9.4 %; Mean Corpuscular HGB Conc 33.3 g/dL (30.0-36.0); Mean Corpuscular Hemoglobin 32.6 pg (28.0-34.0); Mean Corpuscular Volume 98.1 fl (81-99); Mean Platelet Volume 10.2 fL (7.4-10.4); Monocytes # 0.3 10^3/uL (0.2-0.9); Monocytes % 2.3 %; Neutrophils # 11.77 10^3/uL (1.8-7.7); Neutrophils % 87.8 %; Nucleated Red Blood Cells % 0 %; Platelet Count 168 10^3/cmm (130-400); Red Blood Count 4.17 10^6/uL (4.1-5.3); Red Cell Distribution Width 12.5 % (12.1-15.1); White Blood Count 13.4 10^3/uL (4.0-10.0)
[2021-02-16 05:19] LABS: Anion Gap 14.9 (5-19); Blood Urea Nitrogen 11 mg/dL (6-20); Calcium 8.5 mg/dL (8.5-10.5); Carbon Dioxide 20 mmol/L (22-29); Chloride 113 mmol/L (98-107); Creatinine Clr Calc Pharmacy 117.9833; Glomerular Filtration Rate 89.3 mL/min (90-130); Glucose 126 mg/dL (65-115); Magnesium 1.8 mg/dL (1.7-2.3); Osmolality Calculated 299 mOsm/kg (285-295); Potassium 3.9 mmol/L (3.5-5.1); Sodium 144 mmol/L (136-145)
[2021-02-16] MEDS: enoxaparin 100 mg/mL Syringe SUBCUT (06:22)
--- NOTE | 2021-02-16 07:20 | PC.NURSE ---
Shift Note Frequent safety and comfort rounds continue. Orders and/or nursing care completed as indicated. Patient monitored for response to intervention and treatment(s). Education provided includes plan of care. Patient and/or credit representative verbalized understanding. Will continue to monitor.
[2021-02-16] MEDS: morphine 4 mg/mL SDV 1 mL IVP ×3 (08:02→18:08)
[2021-02-16] MEDS: gabapentin 400 mg Capsule 800 MG PO ×4 (08:02→20:30)
[2021-02-16] MEDS: cetirizine 10 mg Tablet PO (08:02)
[2021-02-16] MEDS: famotidine 20 mg Tablet PO ×2 (08:02→17:40)
[2021-02-16] MEDS: fludrocortisone 0.1 mg Tablet PO ×2 (08:04→17:41)
--- NOTE | 2021-02-16 08:35 | PC.CHAP ---
Pastoral Care Encounter/Spiritual Assessment Type of Contact [] Declined broaching machine set up operator visit [] Patient/Family/Request visit [] Outpatient visit [] Follow-up visit [] Physician referral [] Code/Alert [x] Routine visit [] Staff referral [] Actively dying [] Patient sleeping [] Family support [] [] Out of room [] Palliative care [] [] Receiving care in room [] Pre-surgical visit [] Trauma [] Long length of stay [] ICU visit [] Other: Relational/Emotional Strength [] Patient feels connected with others/family/visitors/staff [] Distress [] Loneliness/isolation [] Abandonment Spirituality of Patient [x] Person of Nuris [] Attends Gnosticism of their Nruis [] Believes in Prayer [] Reads Bible or Confucianism materials [] There are Spiritual issues to be addressed National Sales Representative Interventions [x] Prayer [x] Active listening [x] Non-anxious presence [x] Spiritual/emotional support [] Crisis/trauma care [] Spiritual counseling [] Bereavement support [] Provided bereavement packet [] Provided Bible/devotional materials [] Provided toy/stuffed animal, coloring book to patient or family member [] Provided Communion [] Anointing/[place] [] Salvation [x] Completed spiritual assessment [] Other: Impact on Illness or Injury [] Angry [] Fearful [] Anxious [] Often cries [] Exhaustion [] Unable to work [] Unable to attend jew [] Unable to walk/stand [] Unable to read [] Unable to drive [] Unable to eat/drink [] Unable to sleep [] Unable to be with family [] Patient intubated [] Other: Summary patient waiting for surgery by-pass... afraid.. advised her she can call broaching machine set up operator at any time of day and we will visit doctor came in at the close of our visit..... will revisit tomorrow Time spent with patient 10 min
--- NOTE | 2021-02-16 08:45 | PM.PN ---
Subjective Subjective: Interval history: Patient underwent cardiac catheterization yesterday that shows proximal and mid LAD stenosis, severe stenosis of the proximal left circumflex artery and AUTHORIZATION REPRESENTATIVE of RCA with collateral [id number] blood flow. She has been kept on nitro drip given on and off chest pain episodes. However EKG is stable. Vitals/I&O/Wt Last Vital Signs Temp 98.0 F 02/16/21 07:55 Pulse 68 02/16/21 07:55 Resp 20 H 02/16/21 08:02 BP 127/70 02/16/21 07:55 Pulse Ox 94 02/16/21 07:55 02/15/21 02/16/21 02/16/21 22:59 06:59 14:59 Intake Total 1690.35 / 2309.700 1000 / 3309.700 Balance 1690.35 / 2309.700 1000 / 3309.700 Weight last 48 hrs Weight 223 lb Weight 215 lb Physical Exam Narrative: EXAM NARRATIVE: GENERAL: Alert and oriented x3. HEENT: Pupils equal round reactive to light. No pallor or icterus. NECK: No JVD. No carotid bruit. CARDIOVASCULAR SYSTEM: S1-S2 regular. No murmur rubs or gallops. RESPIRATORY SYSTEM: Clear to auscultation without wheezing. ABDOMEN: Soft, nontender and nondistended. Normal bowel sounds present. EXTREMITIES: No cyanosis. No edema. SINGING WAITER OR WAITRESS: Patient is alert oriented ?3. No focal neurological deficits. SKIN: Normal turgor and temperature. PSYCH: Normal insight and judgment. Data : 02/16/21 09:35 02/16/21 09:35 A&P Assessment and plan (1) NSTEMI (non-ST elevated myocardial infarction): Patient had presented with non-ST elevation AZ. Coronary angiogram performed yesterday shows severe triple-vessel coronary artery disease including AUTHORIZATION REPRESENTATIVE of RCA, severe proximal left circumflex artery stenosis and severe proximal and mid LAD stenosis. LAD appears to be culprit vessel for non-ST elevation AZ. Patient has been kept on nitro drip overnight. Her chest pain is on and off however symptoms overall appear stable. No EKG changes are noted. Her LV systolic function was normal on LV gram and echocardiogram. I discussed her case with Dr. Monson for CABG evaluation. He has spoken to the patient and plan is for CABG to be performed tomorrow. Antiplatelet and anticoagulation will be held for now per CT surgery recommendations. She will be started on heparin drip in the evening which will continue till midnight. Status: Acute (2) Dyslipidemia: Status: Chronic (3) Asthma-COPD overlap syndrome: Status: Chronic (4) Sleep apnea: Status: Chronic Qualifiers: Sleep apnea type: unspecified type Qualified Code(s): G47.30 - Sleep apnea, unspecified (5) Smoker: Status: Chronic Additional A&P Information Family history of CAD History of neurocardiogenic syncope Thank you for involving us in the care of this patient. We will continue to follow. Please call with questions. Attestations Medical Necessity Statement*: Care expected to cross two midnights. Coding Level of Care Code Acute Technology Project Manager for Erwin Barun Diagnoses NSTEMI (non-ST elevated myocardial infarction) I21.4 Dyslipidemia E78.5 Asthma-COPD overlap syndrome J44.9 Sleep apnea G47.30 Sleep apnea type: unspecified type Smoker F17.200
--- NOTE | 2021-02-16 08:50 | USCV_ITS ---
Yulisa Laughlin Age: 50 Gender: F : 1970 Exam Date: 02/16/2021 12:06 Ordering Phys: Art Monson MD (Andy) ([email or web address] [place] Technologist: CHEMA Exam Location: [facility] [place] Indication: CABG RIGHT LEFT LOWER EXTREMITY Diameter Diameter (cm) (cm) 0.39 High Thigh 0.95 0.28 Mid Thigh 0.36 0.30 Above Knee 0.31 0.26 Below Knee 0.34 0.27 Mid Calf 0.23 0.24 Ankle 0.24 RIGHT LEFT Findings The veins were found to be patent and easily compressible. Dimensions as mentioned above Conclusions Small to medium caliber, patent veins bilaterally with no evidence of thrombosis. Venous dimensions as mentioned above Dr Cindy Deleon MD FACC (Electronically Signed) Final Date: 16 February 2021 19:38 S
--- NOTE | 2021-02-16 08:54 | PC.NURSE ---
Dr. Jackman at bedside for discussion of plan of care verbal instructions received to stop aspirin and lovenox in preparations for CABG
--- NOTE | 2021-02-16 09:29 | P.CONIM_ITS ---
Providers/Reason For Consult Consulting Physician/Specialty*: Dr. Monson/cardiothoracic surgery Reason for Consult*: Three-vessel coronary artery disease/non-STEMI Requesting Physician: Dr. Marte Attending Physician: Sallie Josue MD History of Present Illness History of Present Illness Yulisa Laughlin is a 50 year old female presented to the emergency department yesterday with complaints of substernal chest discomfort. She had nonspecific EKG changes upon presentation to the emergency department with a 2- hour troponin delta of 25. She received aspirin, nitroglycerin, Lovenox and analgesic with resolution of her discomfort. This was her first episode. She does have a history of fibromyalgia lower chronic neck and back pain, though she states this was not similar to those discomforts. She has a long history of tobacco use. She was initially evaluated by Dr. Morrison from our cardiology service. Patient continued to have intermittent bouts of chest discomfort, and was subcu placed on a nitroglycerin drip with improvement. Left heart catheterization was performed by Dr. Marte yesterday which revealed three- vessel disease including total occlusion of the RCA with left to right collateralization. She has tandem lesions of the LAD with a trapped prominent diagonal. She also has proximal circumflex disease. She has preserved LV function by both echocardiogram and LV gram performed at the time of the left heart catheterization. Because of intermittent continued chest discomfort, I was consulted to consider surgical options for revascularization given her multisegment, multivessel disease. At the time of my exam, she just received analgesic and states her pain is 5/10 though she appears quite comfortable during my exam and conversation with her and appeared to have no distress. She has had no dyspnea since initiation of her chest discomfort or throughout her hospital stay. She has received loading doses of Plavix as well as aspirin and also received Lovenox. I have personally reviewed the left heart catheterization and confirmed my colle ague Dr. Marte. Chest x-ray from yesterday is clear with normal cardiac silhouette. Prior carotid duplex from December 01 of last year was normal. Review of Systems Const: Denies: fever(s), chills, change in appetite, change in weight, fatigue or night sweats Eyes: Denies: change in vision or blurry vision ENMT: Denies: odynophagia or hoarseness Card: Reports: chest pain, palpitations (Now resolved) and pre-syncope (By history); Denies: irregular heart rhythm, edema or swelling of feet/ankles Resp: Denies: dyspnea or productive cough GI: Denies: abdominal pain, nausea, vomiting, dysphagia, heartburn or change in bowel habits : Denies: dysuria, urinary frequency, urinary urgency or urinary hesitancy Musc: Reports: neck pain and back pain; Denies: extremity pain or extremity swelling Skin/Breast: Denies: rash Neuro: Reports: headache(s) (History of migraine headaches); Denies: numbness in extremities, weakness in extremities, sensory changes, difficulty walking or seizure-like activity Psych: Reports: depression; Denies: anxiety or change in appetite Endo: Denies: polyuria, polydipsia or cold intolerance Zhen/Lymph: Denies: easy bruising, easy bleeding, petechiae or enlarged lymph nodes Meds/Allergies Home Medications and Allergies Home Medications Medication Instructions Recorded Confirmed Last Taken Type ascorbic acid (vitamin C) [Vitamin 500 mg PO DAILY 06/27/19 02/15/21 09/09/20 History C] cetirizine [Zyrtec] 10 mg PO DAILY 06/27/19 02/15/21 09/09/20 History cholecalciferol (vitamin D3) 2,000 unit PO DAILY 06/27/19 02/15/21 09/09/20 History [Vitamin D3] epinephrine [EpiPen] 0.3 mg IM Q10M PRN #0 06/27/19 02/15/21 10/25/19 History escitalopram oxalate [Lexapro] 20 mg PO BEDTIME 06/27/19 02/15/21 09/10/20 History cyanocobalamin (vitamin B-12) 1,000 mcg PO DAILY 10/30/19 02/15/21 09/09/20 History [Vitamin B-12] gabapentin 800 mg tablet 800 mg PO QID #120 tab 08/31/20 02/15/21 09/10/20 Rx adalimumab 40 mg/0.8 mL 40 mg SUBCUT Q14D 09/22/20 02/15/21 Unknown History subcutaneous syringe kit albuterol sulfate 90 mcg/actuation 2 puff INHALATION Q6H PRN #8.5 g 11/02/20 02/15/21 Unknown Rx aerosol inhaler atorvastatin 40 mg PO BEDTIME 02/15/21 02/15/21 Unknown History fludrocortisone 0.1 mg PO BID 02/15/21 02/15/21 Unknown History naproxen 500 mg PO BID PRN 02/15/21 02/15/21 Unknown History tizanidine 4 mg PO BID 02/15/21 02/15/21 Unknown History topiramate 100 mg PO BID 02/15/21 02/15/21 Unknown History Allergies Allergy/AdvReac Type Severity Reaction Status Date / Time sertraline [From Zoloft] Allergy Unknown Unknown Verified 02/15/21 09:09 Iodinated Contrast Media Allergy ALGY-Difficulty Verified 02/15/21 09:09 Breathing shellfish derived Allergy ALGY-Anaphy Verified 02/15/21 09:09 laxis pregabalin [From Lyrica] AdvReac SUICIDAL Verified 02/15/21 09:09 THOUGHTS Current Medications Current Medications Generic Name Dose Route Start Last Admin Trade Name Freq PRN Reason Stop Dose Admin Acetaminophen 650 mg 02/15/21 06:49 02/15/21 17:38 Acetaminophen 325 Mg Tablet PO 650 mg Q6H PRN Administration Mild/Mod Pain Or Temp >/= 101 Atorvastatin Calcium 40 mg 02/15/21 21:30 02/15/21 22:00 Atorvastatin 40 Mg Tablet PO 40 mg BEDTIME ETHAN Administration Cetirizine HCl 10 mg 02/16/21 09:00 02/16/21 08:02 Cetirizine 10 Mg Tablet PO 10 mg DAILY ETHAN Administration Escitalopram Oxalate 20 mg 02/15/21 21:30 02/15/21 22:01 Escitalopram 10 Mg Tablet PO 20 mg BEDTIME ETHAN Administration Famotidine 20 mg 02/15/21 09:00 02/16/21 08:02 Famotidine 20 Mg Tablet PO 20 mg BID ETHAN Administration Fludrocortisone Acetate 0.1 mg 02/15/21 18:00 02/16/21 08:04 Fludrocortisone 0.1 Mg Tablet PO 0.1 mg BID ETHAN Administration Gabapentin 800 mg 02/15/21 13:00 02/16/21 08:02 Gabapentin 400 Mg Capsule PO 800 mg QID ETHAN Administration Nitroglycerin/Dextrose 50 mg in 250 mls @ 0 mls/hr 02/15/21 10:00 02/15/21 19:00 Nitroglycerin Drip IV 40 mcg/min .Q0M ETHAN 12 mls/hr Titration Protocol Per Protocol Sodium Chloride 1,000 mls @ 100 mls/hr 02/15/21 17:15 02/16/21 03:51 Sodium Chloride 0.9% IV Not Given .Q10H ETHAN Morphine Sulfate 4 mg 02/15/21 04:20 02/16/21 08:02 Morphine 4 Mg/Ml Sdv 1 Ml IVP 4 mg Q4H PRN Administration SEVERE PAIN PFSH Acute PFSH: Medical History Asthma-COPD overlap syndrome Autonomic neuropathy Chronic migraine without aura, intractable, with status migrainosus Chronic neck and back pain COPD (chronic obstructive pulmonary disease) Depression Dyslipidemia Facet arthritis, degenerative, lumbar spine Fibromyalgia Functional movement disorder Herniation of intervertebral disc between L5 and S1 History of IBS History of pulmonary edema Lumbar stenosis with neurogenic claudication Migraine Neurocardiogenic syncope Psoriasis on adalimumab Sleep apnea Smoker Surgical History History of carpal tunnel repair LEFT Hx of section Hx of cholecystectomy Hx of hysterectomy Family History Mother Breast cancer Grandmother Breast cancer Father Stented coronary artery Social History Smoking and tobacco status: current every day smoker cigarettes [ Other cigarette details: [id number] ] Quit status (tobacco): considering quitting Second hand smoke exposure: Yes Alcohol intake: current Alcohol intake frequency: holidays/special occasions only Lives independently: Yes Household members: spouse Housing: House Marital status: Current occupational status: disabled Pets and animals: Yes Current gender identity: Female Vitals/I&O/Wt Last Vital Signs Temp 98.0 F 02/16/21 07:55 Pulse 78 02/16/21 08:47 Resp 17 02/16/21 08:47 BP 127/70 02/16/21 07:55 Pulse Ox 95 02/16/21 08:47 02/15/21 02/16/21 02/16/21 22:59 06:59 14:59 Intake Total 1690.35 / 2309.700 1000 / 3309.700 Balance 1690.35 / 2309.700 1000 / 3309.700 Weight last 48 hrs Weight 223 lb Weight 215 lb Physical Exam Const: COMMON NORMALS: patient oriented x3 and alert ORIENTATION/CONSCIOUSNESS: Yes oriented to person, Yes oriented to place and Yes oriented to time HENMT: COMMON NORMALS: normocephalic HEAD & SCALP: normocephalic Neck/C-Spine: COMMON NORMALS: full ROM, supple, no JVD and No carotid bruits GENERAL: Yes trachea midline CERVICAL SPINE: Yes cervical ROM normal Chest: COMMONS NORMALS: normal inspection of the chest and normal palpation of entire chest wall Resp: COMMON NORMALS: normal respiratory effort, No use of accessory muscles, clear to auscultation bilaterally and percussion normal EFFORT & INSPECTION: Yes able to speak in complete sentences and Yes symmetric chest movement AUSCULTATION: clear to auscultation bilaterally PERCUSSION: percussion normal Cardio: COMMON NORMALS: no JVD, regular rate, regular rhythm, S1 normal heart sound present, S2 normal heart sound present, No gallops present (Cardio), No murmurs present (Cardio) and No rub (Cardio) JUGULAR VENOUS DISTENTION: no JVD RATE: regular rate RHYTHM: regular rhythm HEART SOUNDS: S1 normal heart sound present and S2 normal heart sound present PERIPHERAL PULSES: radial pulses present positive bilateral Extremity: COMMON NORMALS: normal to inspection and no clubbing, cyanosis or edema Neuro: COMMON NORMALS: patient oriented x3, no focal motor deficits and no sensory deficits noted SENSORIUM/ORIENTATION: Yes alert, Yes oriented to person, Yes oriented to place and Yes oriented to time A&P Assessment and plan (1) NSTEMI (non-ST elevated myocardial infarction): Three-vessel coronary artery disease including tandem LAD lesions along with proximal circumflex disease and total occlusion of the RCA with [id number] collateralization. Preserved LV function by LV gram I concur with Dr. Marte's recommendation to consider surgical revascularization. She has received loading doses of Plavix as well as aspirin full dose and Lovenox, therefore she would be at increased risk for bleeding complications from surgery. It appears that her chest discomfort is under control at present. I think it would be prudent to proceed with appropriate preoperative evaluation to include saphenous vein mapping along with patient and family education. She states her will be here after 12 noon. Currently, ICU is full, no plans are being arranged for bed reapplication which will allow to be placed in the ICU preoperatively. This will allow her to come acquainted with the ICU staff and continue to allow for close observation. Recommend discontinuation aspirin, Plavix and Lovenox. May continue heparin infusion until midnight. We will continue with routine preoperative evaluation in preparation for CABG tomorrow morning. I will be reviewing with her and her our preoperative patient and family educational material as well as expected conduct of surgery. Details and risks of CABG were carefully and frankly reviewed. Risks discussed include the possibility of , stroke, heart attack, major bleeding possibly requiring the need to reopen chest, infection, pneumonia, organ failure, failure to benefit, early closure of the bypass grafts, inability to complete the procedure, prolonged hospitalization, blood clots to lungs or other organs, need for further interventions, continued pain after surgery, need for future surg dontae, and possible long-term bleeding risk secondary to medication requirements. All questions were answered. She stated understanding. She is also aware of her increased bleeding risk related to her recent antiplatelet therapy during this admission. However, given her intermittent ongoing chest discomfort with the requirement for IV nitroglycerin, I think it is prudent that we proceed in an expeditious manner with plans to attempt surgical revascularization. Given her history of migraines, neurogenic pain, and fibromyalgia, we may have some difficulty with postoperative discomfort. 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
[2021-02-16] MEDS: mupirocin oint 22 gm 1 APPLIC NASAL ×2 (09:42→17:40)
[2021-02-16 10:02] LABS: Basophils % 0.2 %; Hematocrit 40.7 % (37.0-47.0); Hemoglobin 13.7 g/dL (11.5-15.3); Lymphocytes # 2.2 10^3/uL (0.8-4.8); Lymphocytes % 12.2 %; Mean Corpuscular HGB Conc 33.7 g/dL (30.0-36.0); Mean Corpuscular Hemoglobin 33.2 pg (28.0-34.0); Mean Corpuscular Volume 98.5 fl (81-99); Monocytes # 0.9 10^3/uL (0.2-0.9); Monocytes % 4.9 %; Neutrophils # 14.59 10^3/uL (1.8-7.7); Neutrophils % 82.2 %; Nucleated Red Blood Cells % 0 %; Platelet Count 164 10^3/cmm (130-400); Red Blood Count 4.13 10^6/uL (4.1-5.3); Red Cell Distribution Width 12.5 % (12.1-15.1); White Blood Count 17.8 10^3/uL (4.0-10.0)
[2021-02-16 10:12] LABS: INR 0.99 (0.8-1.2)
[2021-02-16 10:13] LABS: Partial Thromboplastin Time 42.9 SECONDS (23.9-36.7)
[2021-02-16] MEDS: chlorhexidine gluconate 0.12% Btl 473 mL 15 ML MUCOUS MEM ×2 (10:37→17:40)
[2021-02-16 10:40] LABS: Alanine Aminotransferase 91 U/L (0-33); Albumin Level 3.6 g/dL (3.5-5.2); Alkaline Phosphatase 79 IU/L (35-105); Anion Gap 12.9 (5-19); Aspartate Amino Transferase 39 U/L (0-32); Blood Urea Nitrogen 11 mg/dL (6-20); Calcium 8.6 mg/dL (8.5-10.5); Carbon Dioxide 22 mmol/L (22-29); Chloride 112 mmol/L (98-107); Creatinine Clr Calc Pharmacy 117.9833; Globulin 1.8 g/dL (1.3-4.6); Glomerular Filtration Rate 89.3 mL/min (90-130); Glucose 97 mg/dL (65-115); Osmolality Calculated 295 mOsm/kg (285-295); Potassium 3.9 mmol/L (3.5-5.1); Sodium 143 mmol/L (136-145); Thyroid Stimulating Hormone 0.71 uIU/mL (0.27-4.20); Total Bilirubin 0.5 mg/dL (0.15-1.2); Total Protein 5.4 g/dL (6.6-8.7)
[2021-02-16] MEDS: nitroglycerin drip 50 MG/250 ML PREMIX 12 MG IV (10:40)
[2021-02-16 11:31] LABS: Add Urine Microscopic? YES; Bilirubin Urine Neg (Negative); Blood Urine Trace (Negative); Glucose Urine UA Norm (Normal); Ketones Urine Negative (Negative); Leukocyte Esterase Urine Negative (Negative); Nitrate Urine Negative (Negative); Protein Urine Neg (Negative); Urine Appearance Clear (CLEAR); Urine Color Yellow (Yellow); Urobilinogen Urine Norm (Negative); pH Urine 6 (5-7)
[2021-02-16 11:32] LABS: Bacteria Urine TRACE /hpf; RBC Urine RARE /hpf (0-2)
--- NOTE | 2021-02-16 12:22 | P.PN_ITS ---
Subjective Subjective: Interval history: Status post coronary angiogram which showed triple-vessel disease with unstable lesion of LAD, patient is still experiencing 7/10 substernal chest discomfort on nitroglycerin Plavix held, expedited CABG Dr. Monson consulted by Dr. Marte Vitals/I&O/Wt Last Vital Signs Temp 98.0 F 02/16/21 07:55 Pulse 78 02/16/21 08:47 Resp 17 02/16/21 08:47 BP 127/70 02/16/21 07:55 Pulse Ox 95 02/16/21 08:47 02/15/21 02/16/21 02/16/21 22:59 06:59 14:59 Intake Total 1690.35 / 2309.700 1000 / 3309.700 173.3 / 173.3 Balance 1690.35 / 2309.700 1000 / 3309.700 173.3 / 173.3 Weight last 48 hrs Weight 101.151 kg Weight 97.522 kg Physical Exam Narrative: EXAM NARRATIVE: Patient was laying supine complaining of chest pain 7/10 Clinically looks euvolemic S1, S2 Abdomen soft visceral obesity No edema Appropriate mood and affect Data : 02/16/21 09:35 02/16/21 09:35 A&P Assessment and plan (1) NSTEMI (non-ST elevated myocardial infarction): Status: Acute (2) Triple vessel disease of the heart: Status: Acute Additional A&P Information NSTEMI Triple-vessel disease with unstable lesion of LAD Active chest discomfort despite being on IV nitroglycerin Dr. Monson to plan CABG today N.p.o. Plavix held She will need stress dose steroids for her autonomic dysfunction I will add hydrocortisone regimen She will need ICU postoperatively she does have history of neuropathic pain and sleep apnea N.p.o. Full code Attestations Medical Necessity Statement*: CABG today Time Spent in Patient Care: less than 15 minutes Coding Level of Care Code Acute Restaurant Maintenance Technician for brant Braun Diagnoses NSTEMI (non-ST elevated myocardial infarction) I21.4 Triple vessel disease of the heart I25.10
--- NOTE | 2021-02-16 12:31 | PC.OT ---
OT/PT PRE-OP: CABG EDUCATION PROVIDED. PATIENT EDUCATED ON PLB, ENERGY CONSERVATION, STERNAL PRECAUTIONS AND POC FOR OT/PT. PATIENT AND FAMILY VERBALIZED UNDERSTANDING. WILL AWAIT ORDERS AFTER SURGERY.
--- NOTE | 2021-02-16 12:49 | ANES.PREANE2 ---
Pre-Anesthetic Assessment Pre-Anesthetic Assessment: Height/Weight: Height 1.68 m Weight 101.151 kg Temp Pulse Resp BP Pulse Ox 97.6 F 63 18 133/70 95 02/16/21 12:15 02/16/21 12:15 02/16/21 12:15 02/16/21 12:15 02/16/21 12:15 Preop Diagnosis: NSTEMI Proposed Procedure: Operation Date: 02/15/21 16:30 Proposed Procedures p Cardiac Catheterization(Not Applicable) - Mathew Marte M.D Operation Date: 02/17/21 08:00 Proposed Procedures p CABG(Not Applicable) - Art Monson MD Was Beta Ayad taken within 24 hours: N/A Was Clonidine taken within 24 hours: N/A Social: Social History: Tobacco and No alcohol Exam: Pre-Anes Outpt Exam: alert, oriented x 3 and regular rate & rhythm Airway: Submandibular: WNL Cervical ROM: WNL MP: 2 Dentition: Full Pulmonary: Pulmonary: Asthma and COPD CV/HEM: CV/HEM: CAD and ND Comments: 3 vessel dz, preserved LV fxn Metabolic: Metabolic: Hyperlipidemia Musc/skel: Musc/skel: Fibromyalgia and Lower Back Pain Comments: Chronic pain/opioid Neuropsych: Neuropsych: Anxiety and Depression Anesthetic Plan: ASA status: 4 Anesthesia: General Other: A.line, CVL/PAC, RADHA Risk of > 500 ml blood loss (7ml/kg in children): Yes, adequate IV access and fluids planned Meds/Allergies Current Medications: Current Medications Generic Name Dose Route Start Last Admin Trade Name Freq PRN Reason Stop Dose Admin Acetaminophen 650 mg 02/15/21 06:49 02/15/21 17:38 Acetaminophen 32 5 Mg Tablet PO 650 mg Q6H PRN Administration Mild/Mod Pain Or Temp >/= 101 Atorvastatin Calci um 40 mg 02/15/21 21:30 02/15/21 22:00 Atorvastatin 40 Mg Tablet PO 40 mg BEDTIME ETHAN Administration Cetirizine HCl 10 mg 02/16/21 09:00 02/16/21 08:02 Cetirizine 10 Mg Tablet PO 10 mg DAILY ETAHN Administration Chlorhexidine Gluc stuart 15 ml 02/16/21 09:00 02/16/21 10:37 Chlorhexidine Gl uconate 0.12% Btl 473 Ml MUCOUS MEM 1 each BID ETHAN Administration Escitalopram Oxala te 20 mg 02/15/21 21:30 02/15/21 22:01 Escitalopram 10 Mg Tablet PO 20 mg BEDTIME ETHAN Administration Famotidine 20 mg 02/15/21 09:00 02/16/21 08:02 Famotidine 20 Mg Tablet PO 20 mg BID ETHAN Administration Fludrocortisone Ac etate 0.1 mg 02/15/21 18:00 02/16/21 08:04 Fludrocortisone 0.1 Mg Tablet PO 0.1 mg BID ETHAN Administration Gabapentin 800 mg 02/15/21 13:00 02/16/21 08:02 Gabapentin 400 M g Capsule PO 800 mg QID ETHAN Administration Nitroglycerin/Dext trish 50 mg in 250 mls @ 0 mls/hr 02/15/21 10:00 02/16/21 10:[address] ip IV 40 mcg/min .Q0M ETHAN 12 mls/hr Administration Protocol Per Protocol Sodium Chloride 1,000 mls @ 100 m ls/hr 02/15/21 17:15 02/16/21 03:51 Sodium Chloride 0.9% IV Not Given .Q10H ETHAN Morphine Sulfate 4 mg 02/15/21 04:20 02/16/21 08:02 Morphine 4 Mg/Ml Sdv 1 Ml IVP 4 mg Q4H PRN Administration SEVERE PAIN Mupirocin 1 applic 02/16/21 09:00 02/16/21 09:42 Mupirocin Oint 2 2 Gm NASAL 1 applic BID ETHAN Administration PFSH Anesthesia PFSH: Medical History (Updated 02/16/21 @ 12:24 by Adair Shetty MD) Asthma-COPD overlap syndrome Autonomic neuropathy Chronic migraine without aura, intractable, with status migrainosus Chronic neck and back pain COPD (chronic obstructive pulmonary disease) Depression Dyslipidemia Facet arthritis, degenerative, lumbar spine Fibromyalgia Functional movement disorder Herniation of intervertebral disc between L5 and S1 History of IBS History of pulmonary edema Lumbar stenosis with neurogenic claudication Migraine Neurocardiogenic syncope Psoriasis on adalimumab Sleep apnea Smoker Triple vessel disease of the heart Surgical History History of carpal tunnel repair LEFT Hx of section Hx of cholecystectomy Hx of hysterectomy Family History Mother Breast cancer Grandmother Breast cancer Father Stented coronary artery Social History Smoking and tobacco status: current every day smoker cigarettes [ Other cigarette details: [id number] ] Quit status (tobacco): considering quitting Second hand smoke exposure: Yes Alcohol intake: current Alcohol intake frequency: holidays/special occasions only Lives independently: Yes Household members: spouse Housing: House Marital status: Current occupational status: disabled Pets and animals: Yes Current gender identity: Female Data Anesthesia CBC & Chem 7: 02/16/21 09:35 02/16/21 09:35 Other Labs: Laboratory Results - last 48 hr 02/14/21 02/14/21 02/14/21 23:11 23:11 23:11 WBC 11.9 H RBC 4.58 Hgb 15.3 Hct 44.5 MCV 97.2 MCH 33.4 MCHC 34.4 RDW 12.8 Plt Count 183 MPV 9.5 Neut % (Auto) 60.9 Lymph % (Auto) 29.1 Clark % (Auto) 7.2 Eos % (Auto) 1.7 Baso % (Auto) 0.7 Neut # (Auto) 7.26 Lymph # (Auto) 3.5 Clark # (Auto) 0.9 Eos # (Auto) 0.2 Baso # (Auto) 0.1 Nucleated RBC % (auto) 0 Nucleated RBCs # 0.0 PT INR APTT D-Dimer 0.28 Sodium 144 Potassium 3.9 Chloride 108 H Carbon Dioxide 24 Anion Gap 15.9 BUN 9 Creatinine 1.0 H GFR Calculation 59.2 L Glucose 96 Estimat Average Glucose Hemoglobin A1c Calculated Osmolality 297 H Calcium 9.1 Magnesium Total Bilirubin 0.4 AST 50 H ALT 66 H Alkaline Phosphatase 97 Troponin T Baseline Troponin T 120 Minute Delta Troponin T Troponin T Hi Sens 6Hr Troponin T Hi Sens 6Hr Delta NT-Pro-B Natriuret Pep 191 H Total Protein 6.4 L Albumin 4.4 Globulin 2.0 Triglycerides Cholesterol LDL Cholesterol, Calc HDL Cholesterol LDL/HDL Ratio Cholesterol/HDL Ratio TSH Free T4 Urine Color Urine Appearance Urine pH Ur Specific [place] Urine Protein Urine Glucose (UA) Urine Ketones Urine Blood Urine Nitrate Urine Bilirubin Urine Urobilinogen Ur Leukocyte Esterase Urine RBC Urine WBC Ur Squamous Epith Cells Amorphous Sediment Urine Bacteria SARS-CoV-2 Ag (Rapid) Blood Type Rho(D) Type Antibody Screen Crossmatch 02/14/21 02/14/21 02/15/21 23:11 23:11 01:06 WBC RBC Hgb Hct MCV MCH MCHC RDW Plt Count MPV Neut % (Auto) Lymph % (Auto) [place] % (Auto) Eos % (Auto) Baso % (Auto) Neut # (Auto) Lymph # (Auto) [place] # (Auto) Eos # (Auto) Baso # (Auto) Nucleated RBC % (auto) Nucleated RBCs # PT INR APTT D-Dimer Sodium Potassium Chloride Carbon Dioxide Anion Gap BUN Creatinine GFR Calculation Glucose Estimat Average Glucose 100 Hemoglobin A1c 5.1 Calculated Osmolality Calcium Magnesium Total Bilirubin AST ALT Alkaline Phosphatase Troponin T Baseline 28 H Troponin T 120 Minute 53.39 H Delta Troponin T 25.39 H* Troponin T Hi Sens 6Hr Troponin T Hi Sens 6Hr Delta NT-Pro-B Natriuret Pep Total Protein Albumin Globulin Triglycerides Cholesterol LDL Cholesterol, Calc HDL Cholesterol LDL/HDL Ratio Cholesterol/HDL Ratio TSH Free T4 Urine Color Urine Appearance Urine pH Ur Specific [place] Urine Protein Urine Glucose (UA) Urine Ketones Urine Blood Urine Nitrate Urine Bilirubin Urine Urobilinogen Ur Leukocyte Esterase Urine RBC Urine WBC Ur Squamous Epith Cells Amorphous Sediment Urine Bacteria SARS-CoV-2 Ag (Rapid) Blood Type Rho(D) Type Antibody Screen Crossmatch 02/15/21 02/15/21 02/15/21 06:25 06:25 10:50 WBC RBC Hgb Hct MCV MCH MCHC RDW Plt Count MPV Neut % (Auto) Lymph % (Auto) [place] % (Auto) Eos % (Auto) Baso % (Auto) Neut # (Auto) Lymph # (Auto) [place] # (Auto) Eos # (Auto) Baso # (Auto) Nucleated RBC % (auto) Nucleated RBCs # PT INR APTT D-Dimer Sodium Potassium Chloride Carbon Dioxide Anion Gap BUN Creatinine GFR Calculation Glucose Estimat Average Glucose Hemoglobin A1c Calculated Osmolality Calcium Magnesium Total Bilirubin AST ALT Alkaline Phosphatase Troponin T Baseline Troponin T 120 Minute Delta Troponin T Troponin T Hi Sens 6Hr 53.62 H Troponin T Hi Sens 6Hr Delta 25.62 H* NT-Pro-B Natriuret Pep Total Protein Albumin Globulin Triglycerides 173 H Cholesterol 129 LDL Cholesterol, Calc 56 HDL Cholesterol 38 L LDL/HDL Ratio 1.47 Cholesterol/HDL Ratio 3.39 TSH Free T4 Urine Color Urine Appearance Urine pH Ur Specific [place] Urine Protein Urine Glucose (UA) Urine Ketones Urine Blood Urine Nitrate Urine Bilirubin Urine Urobilinogen Ur Leukocyte Esterase Urine RBC Urine WBC Ur Squamous Epith Cells Amorphous Sediment Urine Bacteria SARS-CoV-2 Ag (Rapid) Negative Blood Type Rho(D) Type Antibody Screen Crossmatch 02/15/21 02/16/21 02/16/21 13:45 03:39 03:39 WBC 13.4 H RBC 4.17 Hgb 13.6 Hct 40.9 MCV 98.1 MCH 32.6 MCHC 33.3 RDW 12.5 Plt Count 168 MPV 10.2 Neut % (Auto) 87.8 Lymph % (Auto) 9.4 Clark % (Auto) 2.3 Eos % (Auto) 0.0 Baso % (Auto) 0.2 Neut # (Auto) 11.77 H Lymph # (Auto) 1.3 [place] # (Auto) 0.3 Eos # (Auto) 0.0 Baso # (Auto) 0.0 Nucleated RBC % (auto) 0 Nucleated RBCs # 0.0 PT INR APTT D-Dimer Sodium 144 Potassium 3.9 Chloride 113 H Carbon Dioxide 20 L Anion Gap 14.9 BUN 11 Creatinine 0.7 GFR Calculation 89.3 L Glucose 126 H Estimat Average Glucose Hemoglobin A1c Calculated Osmolality 299 H Calcium 8.5 Magnesium 1.8 Total Bilirubin AST ALT Alkaline Phosphatase Troponin T Baseline Troponin T 120 Minute Delta Troponin T Troponin T Hi Sens 6Hr Troponin T Hi Sens 6Hr Delta NT-Pro-B Natriuret Pep Total Protein Albumin Globulin Triglycerides Cholesterol LDL Cholesterol, Calc HDL Cholesterol LDL/HDL Ratio Cholesterol/HDL Ratio TSH Free T4 Urine Color Yellow Urine Appearance Clear Urine pH 5 Ur Specific [place] 1.015 Urine Protein Neg Urine Glucose (UA) Norm Urine Ketones Negative Urine Blood Trace H Urine Nitrate Negative Urine Bilirubin Neg Urine Urobilinogen Norm Ur Leukocyte Esterase Negative Urine RBC None Urine WBC Rare Ur Squamous Epith Cells 0-4 H Amorphous Sediment Not Reportable Urine Bacteria Trace SARS-CoV-2 Ag (Rapid) Blood Type Rho(D) Type Antibody Screen Crossmatch 02/16/21 02/16/21 02/16/21 09:35 09:35 09:35 WBC 17.8 H RBC 4.13 Hgb 13.7 Hct 40.7 MCV 98.5 MCH 33.2 MCHC 33.7 RDW 12.5 Plt Count 164 MPV 10.0 Neut % (Auto) 82.2 Lymph % (Auto) 12.2 Clark % (Auto) 4.9 Eos % (Auto) 0.0 Baso % (Auto) 0.2 Neut # (Auto) 14.59 H Lymph # (Auto) 2.2 Clark # (Auto) 0.9 Eos # (Auto) 0.0 Baso # (Auto) 0.0 Nucleated RBC % (auto) 0 Nucleated RBCs # 0.0 PT 13.40 INR 0.99 APTT 42.9 H D-Dimer Sodium 143 Potassium 3.9 Chloride 112 H Carbon Dioxide 22 Anion Gap 12.9 BUN 11 Creatinine 0.7 GFR Calculation 89.3 L Glucose 97 Estimat Average Glucose Hemoglobin A1c Calculated Osmolality 295 Calcium 8.6 Magnesium Total Bilirubin 0.5 AST 39 H ALT 91 H Alkaline Phosphatase 79 Troponin T Baseline Troponin T 120 Minute Delta Troponin T Troponin T Hi Sens 6Hr Troponin T Hi Sens 6Hr Delta NT-Pro-B Natriuret Pep Total Protein 5.4 L Albumin 3.6 Globulin 1.8 Triglycerides Cholesterol LDL Cholesterol, Calc HDL Cholesterol LDL/HDL Ratio Cholesterol/HDL Ratio TSH 0.71 Free T4 0.90 Urine Color Urine Appearance Urine pH Ur Specific [place] Urine Protein Urine Glucose (UA) Urine Ketones Urine Blood Urine Nitrate Urine Bilirubin Urine Urobilinogen Ur Leukocyte Esterase Urine RBC Urine WBC Ur Squamous Epith Cells Amorphous Sediment Urine Bacteria SARS-CoV-2 Ag (Rapid) Blood Type Rho(D) Type Antibody Screen Crossmatch 02/16/21 02/16/21 09:35 10:40 WBC RBC Hgb Hct MCV MCH MCHC RDW Plt Count MPV Neut % (Auto) Lymph % (Auto) [place] % (Auto) Eos % (Auto) Baso % (Auto) Neut # (Auto) Lymph # (Auto) [place] # (Auto) Eos # (Auto) Baso # (Auto) Nucleated RBC % (auto) Nucleated RBCs # PT INR APTT D-Dimer Sodium Potassium Chloride Carbon Dioxide Anion Gap BUN Creatinine GFR Calculation Glucose Estimat Average Glucose Hemoglobin A1c Calculated Osmolality Calcium Magnesium Total Bilirubin AST ALT Alkaline Phosphatase Troponin T Baseline Troponin T 120 Minute Delta Troponin T Troponin T Hi Sens 6Hr Troponin T Hi Sens 6Hr Delta NT-Pro-B Natriuret Pep Total Protein Albumin Globulin Triglycerides Cholesterol LDL Cholesterol, Calc HDL Cholesterol LDL/HDL Ratio Cholesterol/HDL Ratio TSH Free T4 Urine Color Yellow Urine Appearance Clear Urine pH 6 Ur Specific [place] 1.010 Urine Protein Neg Urine Glucose (UA) Norm Urine Ketones Negative Urine Blood Trace H Urine Nitrate Negative Urine Bilirubin Neg Urine Urobilinogen Norm Ur Leukocyte Esterase Negative Urine RBC Rare Urine WBC None Ur Squamous Epith Cells None Amorphous Sediment Not Reportable Urine Bacteria Trace SARS-CoV-2 Ag (Rapid) Blood Type A Positive Rho(D) Type Positive Antibody Screen Negative Crossmatch See Detail Cardiac Studies: Echocardiogram 02/15/21
[2021-02-16] MEDS: hydrocortisone 100 mg/2 mL SDV IVP (13:03)
[2021-02-16] MEDS: heparin 5,000 unit/mL INJ 1 mL IV (18:46)
[2021-02-16] MEDS: heparin drip 25,000 UNIT/500 ML PREMIX 29 UNIT IV (18:47)
[2021-02-16] MEDS: chlorhexidine gluconate 4% Btl 118 mL 1 APPLIC TOPICAL (19:01)
--- NOTE | 2021-02-16 19:30 | PC.NURSE ---
Admit Note Patient admitted to ICU bed 12. Report received from off-going RN. Patient presents with chest pain that has been improved since nitro gtt has been started. Orders reviewed & will continue to monitor. 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 Other education includes: plan for CABG and newly started nitroglycerin. Patient verbalizes understanding
[2021-02-16] MEDS: atorvastatin 40 mg Tablet PO (20:30)
[2021-02-16] MEDS: escitalopram 10 mg Tablet 20 MG PO (20:30)
[2021-02-16] MEDS: temazepam 15 mg Capsule PO (21:10)
[2021-02-17] VITALS (77 sets, daily range): BP systolic 85–126; BP diastolic 41–72; PULSE 61–130; RESP 12–20; TEMP 36.7–37.5; O2SAT 91–100
[2021-02-17] MEDS: hydrocortisone 100 mg/2 mL SDV IVP (00:35)
[2021-02-17] MEDS: morphine 4 mg/mL SDV 1 mL IVP (02:47)
[2021-02-17 04:18] LABS: Basophils % 0.2 %; Eosinophils % 0.1 %; Hematocrit 38.5 % (37.0-47.0); Hemoglobin 12.9 g/dL (11.5-15.3); Lymphocytes # 1.8 10^3/uL (0.8-4.8); Lymphocytes % 15.1 %; Mean Corpuscular HGB Conc 33.5 g/dL (30.0-36.0); Mean Corpuscular Hemoglobin 33.3 pg (28.0-34.0); Mean Corpuscular Volume 99.5 fl (81-99); Monocytes # 0.5 10^3/uL (0.2-0.9); Monocytes % 4.3 %; Neutrophils # 9.65 10^3/uL (1.8-7.7); Neutrophils % 79.8 %; Nucleated Red Blood Cells % 0 %; Platelet Count 147 10^3/cmm (130-400); Red Blood Count 3.87 10^6/uL (4.1-5.3); Red Cell Distribution Width 13.1 % (12.1-15.1); White Blood Count 12.1 10^3/uL (4.0-10.0)
[2021-02-17 04:39] LABS: Blood Urea Nitrogen 16 mg/dL (6-20); Calcium 8.2 mg/dL (8.5-10.5); Carbon Dioxide 25 mmol/L (22-29); Chloride 113 mmol/L (98-107); Creatinine Clr Calc Pharmacy 117.9833; Glomerular Filtration Rate 89.3 mL/min (90-130); Glucose 118 mg/dL (65-115); Magnesium 2.2 mg/dL (1.7-2.3); Osmolality Calculated 302 mOsm/kg (285-295); Sodium 145 mmol/L (136-145)
[2021-02-17 04:40] LABS: Anion Gap 10.8 (5-19); Potassium 3.8 mmol/L (3.5-5.1)
--- NOTE | 2021-02-17 05:20 | PM.PN ---
Subjective Subjective: Interval history: Very comfortable this morning. No arrhythmias. Stable vital signs. Scheduled to transfer to ICU bed 12 last night, which will be her early postoperative room. She has been reduced to the ICU staff and has continued with preparatory education. She has no questions this morning and is ready to proceed with surgery. Vitals/I&O/Wt Last Vital Signs Temp 98.1 F 02/17/21 03:00 Pulse 64 02/17/21 04:00 Resp 12 02/17/21 04:00 BP 126/65 02/17/21 04:00 Pulse Ox 91 02/17/21 04:00 02/16/21 02/16/21 02/17/21 14:59 22:59 06:59 Intake Total 409.3 / 409.3 377.6 / 786.9 147.417 / 934.317 Output Total 450 / 450 Balance 409.3 / 409.3 377.6 / 786.9 -302.583 / 484.317 Physical Exam Chest: COMMONS NORMALS: normal palpation of entire chest wall Resp: COMMON NORMALS: normal respiratory effort, No retractions, No use of accessory muscles and clear to auscultation bilaterally EFFORT & INSPECTION: Yes able to speak in complete sentences and Yes symmetric chest movement AUSCULTATION: clear to auscultation bilaterally Cardio: COMMON NORMALS: regular rate, regular rhythm, S1 normal heart sound present, No gallops present (Cardio), No murmurs present (Cardio) and No rub (Cardio) RATE: regular rate RHYTHM: regular rhythm HEART SOUNDS: S1 normal heart sound present Extremity: COMMON NORMALS: no clubbing, cyanosis or edema Data : 02/17/21 03:34 02/17/21 03:34 A&P Assessment and plan (1) Triple vessel disease of the heart: Will plan to proceed with CABG this morning. Preoperative patient and family education been completed. I spent some time with her and her yesterday afternoon discussing our recommendation and the reasons for this as well as the routine conduct of CABG postoperative course. Risk of surgery were again carefully reviewed and discussed in detail including potential for , stroke, heart attack, major bleeding, infection, pneumonia, early closure of the bypass graft requiring further surgery or interventions, need for long-term follow-up. Discussion specifically concerning smoking cessation was also reviewed. I have reviewed with him our preoperative educational materials. All questions have been answered. I reviewed with her our informed consent this morning. She has no further questions and wishes to proceed. She will have increased risk related to her severe disease and recommendation for pulse steroids related to her neuropathy. She does have chronic pain related to her fibromyalgia and neuropathy and I will seek the assistance of our medical colleagues in addressing this in the postoperative period. She will be also at an increased bleeding risk related to recent antiplatelet administration including loading dose of Plavix upon admission. This would increase her risk for infection as well as need for blood transfusions. Status: Acute Attestations Medical Necessity Statement*: Non-STEMI with severe three-vessel CABG and post infarction pain Time Spent in Patient Care: 16 - 35 minutes Coding Level of Care Code Acute [employer] Team Member for Erwin Braun Diagnoses Triple vessel disease of the heart I25.10
--- NOTE | 2021-02-17 05:47 | PC.NURSE ---
Shift Note Frequent safety and comfort rounds continue. Orders and nursing care completed as indicated. Patient monitored for response to intervention and treatments. Education provided including medications given and pain management post op. Dr. Alcala at bedside this morning. explained procedure at length. consent form was signed. patients is to be updated throughout the day today. Patient verbalized understanding. patients preop bath has been done at this time. Will continue to monitor.
[2021-02-17] MEDS: nitroglycerin drip 50 MG/250 ML PREMIX 15 MG IV (06:22)
--- NOTE | 2021-02-17 07:45 | ANES.PAUD2 ---
Pre-Anesthetic Update Pre-Anesthetic Assessment: Date of Surgery/Procedure: 02/17/21 Preop Diagnosis: NSTEMI Proposed Procedure: Operation Date: 02/15/21 16:30 Proposed Procedures p Cardiac Catheterization(Not Applicable) - Mathew Marte M.D Operation Date: 02/17/21 08:00 Proposed Procedures p CABG(Not Applicable) - Art Monson MD Any changes to Pre-Anesthetic Assessment?: No Labs Last 48hrs: Laboratory Results - last 48 hr 02/14/21 02/15/21 02/15/21 23:11 06:25 10:50 WBC RBC Hgb Hct MCV MCH MCHC RDW Plt Count MPV Neut % (Auto) Lymph % (Auto) [place] % (Auto) Eos % (Auto) Baso % (Auto) Neut # (Auto) Lymph # (Auto) [place] # (Auto) Eos # (Auto) Baso # (Auto) Nucleated RBC % (a uto) Nucleated RBCs # PT INR APTT Sodium Potassium Chloride Carbon Dioxide Anion Gap BUN Creatinine GFR Calculation Glucose Estimat Average Gl ucose 100 Hemoglobin A1c 5.1 Calculated Osmolal ity Calcium Magnesium Total Bilirubin AST ALT Alkaline Phosphata se Total Protein Albumin Globulin Triglycerides 173 H Cholesterol 129 LDL Cholesterol, C alc 56 HDL Cholesterol 38 L LDL/HDL Ratio 1.47 Cholesterol/HDL Ra kieran 3.39 TSH Free T4 Urine Color Urine Appearance Urine pH Ur Specific [place] Urine Protein Urine Glucose (UA) Urine Ketones Urine Blood Urine Nitrate Urine Bilirubin Urine Urobilinogen Ur Leukocyte Gaby ase Urine RBC Urine WBC Ur Squamous Epith Cells Amorphous Sediment Urine Bacteria SARS-CoV-2 Ag (Rap id) Negative Blood Type Rho(D) Type Antibody Screen Crossmatch 02/15/21 02/16/21 02/16/21 13:45 03:39 03:39 WBC 13.4 H RBC 4.17 Hgb 13.6 Hct 40.9 MCV 98.1 MCH 32.6 MCHC 33.3 RDW 12.5 Plt Count 168 MPV 10.2 Neut % (Auto) 87.8 Lymph % (Auto) 9.4 [place] % (Auto) 2.3 Eos % (Auto) 0.0 Baso % (Auto) 0.2 Neut # (Auto) 11.77 H Lymph # (Auto) 1.3 [place] # (Auto) 0.3 Eos # (Auto) 0.0 Baso # (Auto) 0.0 Nucleated RBC % (a uto) 0 Nucleated RBCs # 0.0 PT INR APTT Sodium 144 Potassium 3.9 Chloride 113 H Carbon Dioxide 20 L Anion Gap 14.9 BUN 11 Creatinine 0.7 GFR Calculation 89.3 L Glucose 126 H Estimat Average Gl ucose Hemoglobin A1c Calculated Osmolal ity 299 H Calcium 8.5 Magnesium 1.8 Total Bilirubin AST ALT Alkaline Phosphata se Total Protein Albumin Globulin Triglycerides Cholesterol LDL Cholesterol, C alc HDL Cholesterol LDL/HDL Ratio Cholesterol/HDL Ra kieran TSH Free T4 Urine Color Yellow Urine Appearance Clear Urine pH 5 Ur Specific [place] 1.015 Urine Protein Neg Urine Glucose (UA) Norm Urine Ketones Negative Urine Blood Trace H Urine Nitrate Negative Urine Bilirubin Neg Urine Urobilinogen Norm Ur Leukocyte Gaby ase Negative Urine RBC None Urine WBC Rare Ur Squamous Epith Cells 0-4 H Amorphous Sediment Not Reportable Urine Bacteria Trace SARS-CoV-2 Ag (Rap id) Blood Type Rho(D) Type Antibody Screen Crossmatch 02/16/21 02/16/21 02/16/21 09:35 09:35 09:35 WBC 17.8 H RBC 4.13 Hgb 13.7 Hct 40.7 MCV 98.5 MCH 33.2 MCHC 33.7 RDW 12.5 Plt Count 164 MPV 10.0 Neut % (Auto) 82.2 Lymph % (Auto) 12.2 [place] % (Auto) 4.9 Eos % (Auto) 0.0 Baso % (Auto) 0.2 Neut # (Auto) 14.59 H Lymph # (Auto) 2.2 [place] # (Auto) 0.9 Eos # (Auto) 0.0 Baso # (Auto) 0.0 Nucleated RBC % (a uto) 0 Nucleated RBCs # 0.0 PT 13.40 INR 0.99 APTT 42.9 H Sodium 143 Potassium 3.9 Chloride 112 H Carbon Dioxide 22 Anion Gap 12.9 BUN 11 Creatinine 0.7 GFR Calculation 89.3 L Glucose 97 Estimat Average Gl ucose Hemoglobin A1c Calculated Osmolal ity 295 Calcium 8.6 Magnesium Total Bilirubin 0.5 AST 39 H ALT 91 H Alkaline Phosphata se 79 Total Protein 5.4 L Albumin 3.6 Globulin 1.8 Triglycerides Cholesterol LDL Cholesterol, C alc HDL Cholesterol LDL/HDL Ratio Cholesterol/HDL Ra kieran TSH 0.71 Free T4 0.90 Urine Color Urine Appearance Urine pH Ur Specific [place] Urine Protein Urine Glucose (UA) Urine Ketones Urine Blood Urine Nitrate Urine Bilirubin Urine Urobilinogen Ur Leukocyte Gaby ase Urine RBC Urine WBC Ur Squamous Epith Cells Amorphous Sediment Urine Bacteria SARS-CoV-2 Ag (Rap id) Blood Type Rho(D) Type Antibody Screen Crossmatch 02/16/21 02/16/21 02/17/21 09:35 10:40 03:34 WBC 12.1 H RBC 3.87 L Hgb 12.9 Hct 38.5 MCV 99.5 H MCH 33.3 MCHC 33.5 RDW 13.1 Plt Count 147 MPV 10.0 Neut % (Auto) 79.8 Lymph % (Auto) 15.1 [place] % (Auto) 4.3 Eos % (Auto) 0.1 Baso % (Auto) 0.2 Neut # (Auto) 9.65 H Lymph # (Auto) 1.8 [place] # (Auto) 0.5 Eos # (Auto) 0.0 Baso # (Auto) 0.0 Nucleated RBC % (a uto) 0 Nucleated RBCs # 0.0 PT INR APTT Sodium Potassium Chloride Carbon Dioxide Anion Gap BUN Creatinine GFR Calculation Glucose Estimat Average Gl ucose Hemoglobin A1c Calculated Osmolal ity Calcium Magnesium Total Bilirubin AST ALT Alkaline Phosphata se Total Protein Albumin Globulin Triglycerides Cholesterol LDL Cholesterol, C alc HDL Cholesterol LDL/HDL Ratio Cholesterol/HDL Ra kieran TSH Free T4 Urine Color Yellow Urine Appearance Clear Urine pH 6 Ur Specific Grav[place] y 1.010 Urine Protein Neg Urine Glucose (UA) Norm Urine Ketones Negative Urine Blood Trace H Urine Nitrate Negative Urine Bilirubin Neg Urine Urobilinogen Norm Ur Leukocyte Gaby ase Negative Urine RBC Rare Urine WBC None Ur Squamous Epith Cells None Amorphous Sediment Not Reportable Urine Bacteria Trace SARS-CoV-2 Ag (Rap id) Blood Type A Positive Rho(D) Type Positive Antibody Screen Negative Crossmatch See Detail 02/17/21 03:34 WBC RBC Hgb Hct MCV MCH MCHC RDW Plt Count MPV Neut % (Auto) Lymph % (Auto) [place] % (Auto) Eos % (Auto) Baso % (Auto) Neut # (Auto) Lymph # (Auto) [place] # (Auto) Eos # (Auto) Baso # (Auto) Nucleated RBC % (a uto) Nucleated RBCs # PT INR APTT Sodium 145 Potassium 3.8 Chloride 113 H Carbon Dioxide 25 Anion Gap 10.8 BUN 16 Creatinine 0.7 GFR Calculation 89.3 L Glucose 118 H Estimat Average Gl ucose Hemoglobin A1c Calculated Osmolal ity 302 H Calcium 8.2 L Magnesium 2.2 Total Bilirubin AST ALT Alkaline Phosphata se Total Protein Albumin Globulin Triglycerides Cholesterol LDL Cholesterol, C alc HDL Cholesterol LDL/HDL Ratio Cholesterol/HDL Ra kieran TSH Free T4 Urine Color Urine Appearance Urine pH Ur Specific [place] y Urine Protein Urine Glucose (UA) Urine Ketones Urine Blood Urine Nitrate Urine Bilirubin Urine Urobilinogen Ur Leukocyte Gaby ase Urine RBC Urine WBC Ur Squamous Epith Cells Amorphous Sediment Urine Bacteria SARS-CoV-2 Ag (Rap id) Blood Type Rho(D) Type Antibody Screen Crossmatch Vitals: Temperature 98.1 F 02/17/21 03:00 Temperature Source Axillary 02/17/21 03:00 Pulse Rate 61 02/17/21 06:00 Pulse Rhythm 02/17/21 05:20 Pulse Strength 2+ Slightly Dimin ished 02/17/21 05:20 Respiratory Rate 12 02/17/21 04:00 Respiratory Effort Non-Labored 02/17/21 05:20 Respiratory Depth Normal 02/17/21 05:20 Respiratory Patter n 02/16/21 18:08 Blood Pressure 126/65 02/17/21 04:00 Blood Pressure Mariela n 85 02/17/21 04:00 Blood Pressure Pos ition Semi Fowlers 02/16/21 18:15 Pulse Oximetry 91 02/17/21 04:00 Oxygen Delivery Me thod 02/16/21 18:15 Oxygen Flow Rate 2 02/16/21 04:00 Fraction of Inspir ed Oxygen 21 02/16/21 23:49 Sepsis Recent Feve r Within 48 Hours No 02/14/21 22:54 Exam: Pre-Anes Outpt Exam: alert, oriented x 3, clear to auscultation bilaterally and regular rate & rhythm Cardiac Studies: Echocardiogram 02/15/21
[2021-02-17] MEDS: cefUROXime 1,500 MG in sodium chloride 0.9% (plus) 50 ML 100 MG IV ×2 (07:55→13:22)
[2021-02-17] MEDS: vancomycin 1,000 MG SDV 3000 MG IRRIGATION (08:38)
[2021-02-17] MEDS: heparin, porcine 1,000 unit/mL INJ 10 mL 1750 UNIT IRRIGATION (08:41)
[2021-02-17] MEDS: sodium bicarbonate 1 mEq/mL SDV 50mL 0.7 MEQ IRRIGATION (09:12)
--- NOTE | 2021-02-17 10:24 | SUR.OPER ---
1025 PT ON BYPASS, ICU NOTIFIED AND FAMILY UPDATED
--- NOTE | 2021-02-17 11:16 | PM.PN ---
Subjective Subjective: Interval history: Patient is doing well. She denies any chest pain. Plan for CABG today. Vitals/I&O/Wt Last Vital Signs Temp 98.1 F 02/17/21 03:00 Pulse 61 02/17/21 06:00 Resp 12 02/17/21 04:00 BP 126/65 02/17/21 04:00 Pulse Ox 91 02/17/21 04:00 02/16/21 02/17/21 02/17/21 22:59 06:59 14:59 Intake Total 377.6 / 786.9 255.817 / 1042.717 90 / 90 Output Total 450 / 450 Balance 377.6 / 786.9 -194.183 / 592.717 90 / 90 Physical Exam Narrative: EXAM NARRATIVE: GENERAL: Alert and oriented x3. HEENT: Pupils equal round reactive to light. No pallor or icterus. NECK: No JVD. No carotid bruit. CARDIOVASCULAR SYSTEM: S1-S2 regular. No murmur rubs or gallops. RESPIRATORY SYSTEM: Clear to auscultation without wheezing. ABDOMEN: Soft, nontender and nondistended. Normal bowel sounds present. EXTREMITIES: No cyanosis. No edema. FINANCIAL ANALYSIS CONSULTANT: Patient is alert oriented ?3. No focal neurological deficits. SKIN: Normal turgor and temperature. PSYCH: Normal insight and judgment. Urinary Catheter Management^: Young: Cath Placed During This Visit: yes Urinary Catheter Date of Insertion: 02/17/21 Urinary Catheter Time of Insertion: 07:00 Data : 02/18/21 02:27 02/18/21 02:27 A&P Assessment and plan (1) NSTEMI (non-ST elevated myocardial infarction): Patient had presented with non-ST elevation MA. Coronary angiogram performed yesterday shows severe triple-vessel coronary artery disease including CERTIFIED PESTICIDE APPLICATOR of RCA, severe proximal left circumflex artery stenosis and severe proximal and mid LAD stenosis. LAD appears to be culprit vessel for non-ST elevation MA. Patient's LV systolic function was normal both on LV gram and echocardiogram. No significant EKG changes. She was having on and off chest discomfort episodes so was kept on nitro drip. CT surgery was consulted. Patient is planned to undergo CABG today. Antiplatelet agents were held in anticipation of CABG. She was on anticoagulation until last night which was stopped as well. Patient will be transferred to ICU post CABG. Status: Acute (2) Dyslipidemia: Status: Chronic (3) Asthma-COPD overlap syndrome: Status: Chronic (4) Sleep apnea: Status: Chronic Qualifiers: Sleep apnea type: unspecified type Qualified Code(s): G47.30 - Sleep apnea, unspecified (5) Smoker: Status: Chronic Additional A&P Information Family history of CAD History of neurocardiogenic syncope Thank you for involving us in the care of this patient. We will continue to follow. Please call with questions. Attestations Medical Necessity Statement*: Care expected to cross 2 midnights. Coding Level of Care Code Acute Scada Engineer for [facility] Fwd Diagnoses NSTEMI (non-ST elevated myocardial infarction) I21.4 Dyslipidemia E78.5 Asthma-COPD overlap syndrome J44.9 Sleep apnea G47.30 Sleep apnea type: unspecified type Smoker F17.200
--- NOTE | 2021-02-17 12:18 | PC.RESP ---
SMOKING CESSATION AND PULMONARY REHAB INFORMATION SENT TO PATIENT.
--- NOTE | 2021-02-17 13:01 | SUR.OPER ---
1250 PT OFF BYPASS, ICU NOTIFIED AND PT FAMILY UPDATED ON PT CONDITION
--- NOTE | 2021-02-17 14:47 | SUR.OPER ---
1447 PT FAMILY UPDATED ON PT CONDITION
--- NOTE | 2021-02-17 14:53 | XR_ITS ---
WS: [id number] Exam: XR chest 1V portable [id number] Date/Time of Exam: 02/17/2021 4:16 PM Reason For Exam: POST OP CABG, WILL CALL WHEN READY Comparison 02/15/2021. There are diffuse infiltrates in both lungs. An ET tube is in place appearing to end at about the lev el of the T3 in satisfactory position. A right-sided vascular catheter is looped over the cardiac rajat houette. Signs of median sternotomy. No pleural effusions or pneumothorax. An NG tube enters the stom ach but the tip is not visible. XR/XR chest 1V portable [id number] IMPRESSION: 1. Diffuse infiltrates noted throughout both lungs. 2. ET tube appears to be in satisfactory position as well as the NG tube. Addit ional vascular catheter along the right superior mediastinum is looped over the cardiac silhouette.
--- NOTE | 2021-02-17 15:37 | PM.PN ---
Subjective Subjective: Interval history: Patient status post CABG Coronary artery bypass grafting x4 (1 artery and 3 veins) utilizing left internal mammary artery to the left anterior descending artery, reverse saphenous vein graft from the aorta to the OMB, reversed vein graft from aorta to the diagonal artery, and reverse vein graft aorta to the PDA. #2. Endoscopic saphenous vein harvesting of the right greater saphenous vein. Vitals/I&O/Wt Last Vital Signs Temp 98.1 F 02/17/21 03:00 Pulse 61 02/17/21 06:00 Resp 12 02/17/21 04:00 BP 126/65 02/17/21 04:00 Pulse Ox 91 02/17/21 04:00 02/17/21 02/17/21 02/17/21 06:59 14:59 22:59 Intake Total 255.817 / 1042.717 916 / 916 Output Total 450 / 450 Balance -194.183 / 592.717 916 / 916 Physical Exam Narrative: EXAM NARRATIVE: Patient intubated and sedated Has right-sided triple-lumen catheter, internal jugular vein Holloway-Hayley catheter Currently on dobutamine drip Map above 70 Left-sided chest tube in place does not show any leakage Assisted bilateral breath sounds With obesity, distended abdomen Lower extremity no signs of ischemia or gangrene Urinary Catheter Management^: Young: Cath Placed During This Visit: yes Urinary Catheter Date of Insertion: 02/17/21 Urinary Catheter Time of Insertion: 07:00 Data : 02/17/21 03:34 02/17/21 03:34 A&P Assessment and plan (1) S/P CABG x 4: Status post CABG 02/17 Postop day 0: Further management to be dictated by Dr. Monson and Dr. Marte Status: Acute Attestations Medical Necessity Statement*: Postop management in ICU Time Spent in Patient Care: 16 - 35 minutes Coding Level of Care Code Acute Pipe Coverer for Chg Fwd Diagnoses S/P CABG x 4 Z95.1
[2021-02-17 15:38] LABS: Partial Thromboplastin Time 32.6 SECONDS (23.9-36.7)
--- NOTE | 2021-02-17 15:39 | SUR.OPER ---
1530 FAMILY UPDATED ON PT CONDITION
--- NOTE | 2021-02-17 16:33 | ECG_ITS ---
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1970 Requested By: Art Monson Order Number: [id number] Reading MD: ANTONIA ROSALES Measurements Intervals [place] Rate: 106 P: 67 HI: 140 QRS: 73 QRSD: 86 T: 14 QT: 386 QTc: 513 Interpretive Statements SINUS TACHYCARDIA NONSPECIFIC ST & T-WAVE ABNORMALITY ABNORMAL RHYTHM ECG Compared to ECG 02/15/2021 11:01:43 T-wave abnormality now present Sinus bradycardia no longer present Electronically Signed On 02-17-2021 21:09:43 CDT by ANTONIA ROSALES [id number]
--- NOTE | 2021-02-17 16:34 | P.OP_ITS ---
Operative Report Date of procedure: February 17, 2021 Pre-op Diagnosis: NSTEMI Post-op diagnosis: same Procedure Done: 1. Coronary artery bypass grafting x4 (1 artery and 3 veins) utilizing left internal mammary artery to the left anterior descending artery, reverse saphenous vein graft from the aorta to the OMB, reversed vein graft from aorta to the diagonal artery, and reverse vein graft aorta to the PDA. #2. Endoscopic saphenous vein harvesting of the right greater saphenous vein. Pathology: none sent Surgeon: Art Monson Anesthesia: General Complications: None Condition: stable Disposition: ICU Brief History: Patient is a 50-year-old female who presented 2 days ago with chest discomfort which radiated to her back and jaw. Troponins were elevated consistent with non-ST elevated myocardial infarction. She initially responded well to medical management though had delayed chest pain. She underwent left heart catheterization yesterday by Dr. Marte. She was found to have high- grade tandem lesions of the LAD as well as disease of the proximal circumflex artery and total occlusion of the RCA with [id number]-[id number] collateralization. Because of continued discomfort, she was referred for surgical revascula rization. She did receive loading dose of Plavix at the time of her presentation as well as a second dose following morning. She is also put on aspirin and heparin as well as Lovenox. Due to her severe three-vessel disease and ongoing discomfort, we recommended expeditious CABG. Increased bleeding complication risk were carefully and frankly discussed. Preop patient has had education was completed. All questions were answered. Appropriate consents have been reviewed and signed. Procedure: Details and risks of the surgery were carefully and frankly explained to the patient and the family. Particular risks of this surgery carefully reviewed with them included the possibility of , stroke, heart attack, major bleeding, infection, pneumonia, pain, organ failure, failure to benefit, early closure of the bypass grafts, prolonged hospital stay and subsequent need for further procedures. Increased risks for complications secondary to Plavix administration as well as heparin and Lovenox were carefully reviewed. Ms Laughlin and her understand these increased risks. All questions were answered and appropriate consents were reviewed and signed. Preoperative education for the patient and the family included both written and video materials. The patient and the family wished to proceed with plans for attempted surgical revascularization for severe coronary artery bypass. PROCEDURE: Preoperative evaluation was obtained from our Anesthesia colleagues and adequate IVs were confirmed. The patient was then taken to the Operating Room Suite where general anesthesia was induced. Appropriate invasive monitoring lines were placed, including large bore peripheral IVs, central line, Brandon-Hayley catheter, Young catheter and associated monitoring leads. After careful positioning on the Operating Room table, Ms. Dinero subsequently sterilely prepped and draped. Saphenous vein was harvested by endoscopic technique from the right thigh and leg. Branches were secured with ligature and clips and the vein was extracted from the tunnel without tension. It was then flushed with a Heparin and albumin solution and prepared for grafting. Vein harvest sites were irrigated, platelet poor plasma infused into the tunnel and port sites closed with 3-0 and 4-0 Vicryl Plus suture. Simultaneously with vein harvesting, a median sternotomy was created utilizing a #10 scalpel blade with hemostasis controlled with cautery. After reaching the sternal table, the sternum was divided with a reciprocating saw. Bleeding was controlled with cautery and judicious use of bone wax. Following this, the left chest wall was elevated with a Rultract retractor. The left internal mammary artery was dissected free with branches being secured with clips and cautery. The distal end was left intact. The NAVARRO was rather short though I did think he had adequate length to reach mid LAD. After harvesting of the mammary artery, a left pleural chest tube was then placed. The left chest wall was then lowered and moistened antibiotic-soaked laparotomy pads were placed in the wound, followed by an Ankeney retractor. The sternum was then and the pericardium opened and secured with stay sutures. After inspection, 2-0 pledgeted Ethibond sutures were placed at cannulation sites, at which time the patient was fully heparinized. Following this, the left internal mammary artery was taken down from its distal attachment, flushed with Papaverine solution, prepared for grafting and brisk flow confirmed. A soft bulldog was applied distally. Next, the heart was cannulated with a 22-Mozambican aortic cannula, two- stage venous cannula and aortic root vent. The patient was subsequently placed on cardiopulmonary bypass and cooled systemically to 34 degrees. Aortic cross- clamp was then carefully placed and 4 degree Celsius cold blood cardioplegia was administered through the aortic root in antegrade fashion. Prompt diastolic arrest was obtained. Left ventricular decompression was confirmed. The heart was cooled systemically with iced saline with an insulation pad in place to protect the phrenic nerve. Throughout the cross-clamp period, at 20-30 minute intervals, antegrade blood cardioplegia was administered to maintain asystole. We then inspected the cardiac surface and coronary anatomy. Initially, the OM 3 branch of the circumflex artery was isolated and 1.75 mm in size. Arteriotomy was created and saphenous vein was anastomosed in a end-to-side fashion to this vessel and then proximally to a 4 mm aortotomy. We next turned our attention to the anterior wall with occluded RCA terminating to the PDA which had been noted to receive left to right collateralization. This vessel was opened up at 1.5 mm. It was moderately diseased. I second portion of vein was anastomosed distally in a end-to-side fashion with 7-0 Prolene suture at approximately two 4 mm aortotomy with 5-0 Prolene. We then turned our attention to a prominent diagonal branch of the LAD. This vessel was also opened up and 1.5 mm and a third section of vein was anastomosed distally with running 7-0 Prolene suture and proximally to the aorta and a 4 mm aortotomy with 5-0 Prolene suture. With the rewarming phase of bypass continuing, the left internal mammary artery was brought through a left anterior pericardial window into the field. The LAD was opened up in its mid one-third and was approximately 1.5 mm in size with moderately heavy disease. The NAVARRO was then anastomosed to the LAD with a running 7-0 Prolene suture. It should be noted that all distal coronary anastomoses were performed over the appropriate size coronary shunt which was removed prior to securing the distal suture line. Following this, aortic cross- clamp was released and de-airing maneuvers were performed through the aortic root vent, as well as being confirmed by transesophageal echocardiography. Dobutamine at 3 mcg per kilogram per minute was administered with good c hronotropic and inotropic affect. The heart returned to spontaneous sinus rhythm and did not require cardioversion or pacing. After adequate recovery from the cross-clamp period and confirmation of cardiac stability, the patient was weaned from bypass without difficulty. Venous cannula was removed. Heparin was reversed with Protamine and confirmed by measurement of activated clotting time. Due to her loading dose of Plavix administration as well as other anticoagulants preoperatively, she also received 2 units of FFP and 2 units of pheresis platelets. The heart was then decannulated and cannulation sites were oversewn as required. Pacing wires were placed and brought through the skin and secured. Radiopaque markers were placed on the vein grafts at the level of aorta. Two mediastinal drains were placed and connected to Pleur-evac suction. The wound was carefully irrigated and hemostasis was confirmed. We did take quite a bit of time and confirmation of hemostasis due to general bleeding which had been noted upon chest entry. Ankeney retractor was removed and sponge and needle count was correct. The sternum was then reapproximated very carefully with interrupted #7 stainless steel wire with Surgicel strips used beneath the sternal table. Fascia was closed with #1 Vicryl suture with the next layers being closed with 2-0 and 3-0 suture. The skin was reapproximated carefully in a subcuticular manner. Sterile dressings were applied, followed by a vacuum-assisted dressing. The patient was carefully removed from the operating room table and transferred to the Intensive Care Unit. Her was then counseled as to the details of the procedure. We will be watching closely for postop bleeding in the ICU and be weaning slowly from the ventilator.
--- NOTE | 2021-02-17 16:35 | PC.NURSE ---
Pt back to ICU from Surgery. Intubated and sedated. Chest tubes, 2 pleural and 1 mediastinal patent and draining. Wound vac patent with compressed sponge and intact dressing. Right leg ELIEL wrap intact. OG noted, green tinged drainage noted in tube. Central line in right neck with cordis/SWANZ near. SWANZ at 55. Peripheral IV noted in right arm. Dobutamine at 3mcg/kg/min, Propofol at 50 mcg/kcg/min and Nitro at 50 mcg/min. Sinus tachycarida noted on monitor.
[2021-02-17] MEDS: fentaNYL 50 mcg/mL INJ 2mL IVP ×2 (16:59→23:16)
[2021-02-17] MEDS: albumin 12.5 GM/250 ML VIAL IV ×3 (17:30→18:20)
[2021-02-17 17:45] LABS: ABG PCO2 50.3 mmHg (35-45); ABG PH Result 7.29 (7.35-7.45); Arterial Blood Gas Hematocrit 23.1 % (37-47); Base Excess ABG -2.1 mmol/L (-2.0-2.0); Blood Gas Operator Identificat GD; Blood Gas Sample Type Arterial; Blood Gas Tidal Volume 0.45; HCO3 ABG 24.4 mmol/L (22-26); Oxygen Device VENT
--- NOTE | 2021-02-17 17:49 | ANE.PACU2 ---
Inpatient post-anesthesia follow up: Airway intact: Yes Vital signs: Temperature 98.1 F Pulse Rate [Monito r] 84 Pulse Rate 61 Respiratory Rate 12 Blood Pressure [Le ft Arm] 124/72 Blood Pressure 126/65 Pulse Oximetry 100 Oxygen Delivery Me thod Room Air Oxygen Flow Rate 2 Fraction of Inspir ed Oxygen 100 Hydration adequate: Yes Nausea and vomiting: No Pain level: 3 Additional Comments: Intubated/sedated to ICU, stable.
--- NOTE | 2021-02-17 18:19 | PC.NURSE ---
Pt remains hypotensive afer 3 bottles of 5% albumin in [address] Monson, at bedside, gave verbal order to transfuse nit of PRBCs now.
--- NOTE | 2021-02-17 18:20 | PC.NURSE ---
Verbal order received from Dr Monson to transfuse second unit of PRBC, ABG hematocrit 23%.
[2021-02-17 18:45] LABS: Magnesium 2.6 mg/dL (1.7-2.3)
[2021-02-17 18:52] LABS: Basophils % 0.1 %; Hematocrit 23.1 % (37.0-47.0); Hemoglobin 7.3 g/dL (11.5-15.3); Lymphocytes # 1.2 10^3/uL (0.8-4.8); Lymphocytes % 15.8 %; Mean Corpuscular HGB Conc 31.6 g/dL (30.0-36.0); Mean Corpuscular Hemoglobin 33.2 pg (28.0-34.0); Mean Platelet Volume 10.3 fL (7.4-10.4); Monocytes # 0.9 10^3/uL (0.2-0.9); Monocytes % 11.3 %; Neutrophils # 5.43 10^3/uL (1.8-7.7); Neutrophils % 72.1 %; Nucleated Red Blood Cells % 0 %; Platelet Count 133 10^3/cmm (130-400); Red Cell Distribution Width 13.5 % (12.1-15.1); White Blood Count 7.5 10^3/uL (4.0-10.0)
[2021-02-17 18:55] LABS: INR 1.32 (0.8-1.2)
[2021-02-17 18:57] LABS: Partial Thromboplastin Time 32.1 SECONDS (23.9-36.7)
--- NOTE | 2021-02-17 19:00 | PC.NURSE ---
Report given to ROBERT Jolly Pt has been hypotensive, 3 bottles of albumin infused, remained hypotensive, Dr Monson ordered PRBC transfusion to start. ABG hct 23.1, ordered additional unit to be transfused. Still waiting on first set of lab values post-op. Dobutamne decreased to 1 mcg/kg/min, it helped decreased heart rate from 120s to 105ish. Nitro turned completely off as B/P trended down. No change in propofol rate. Chest tubes draining and patent: Mediastinal (1) 123ml total, Pleural 245 ml total, both serousangiuoness. Adequate urine output noted.
[2021-02-17 19:18] LABS: Anion Gap 9.9 (5-19); Blood Urea Nitrogen 11 mg/dL (6-20); Calcium 6.8 mg/dL (8.5-10.5); Carbon Dioxide 24 mmol/L (22-29); Chloride 118 mmol/L (98-107); Glomerular Filtration Rate 106.7 mL/min (90-130); Glucose 106 mg/dL (65-115); Osmolality Calculated 306 mOsm/kg (285-295); Potassium 3.9 mmol/L (3.5-5.1); Sodium 148 mmol/L (136-145)
[2021-02-17] MEDS: propofol 1,000 MG/100 ML INJ 30.35 MG IV ×2 (19:21→22:43)
[2021-02-17] MEDS: mupirocin oint 22 gm 1 APPLIC NASAL (19:21)
[2021-02-17] MEDS: chlorhexidine gluconate 0.12% Btl 473 mL 15 ML MUCOUS MEM ×3 (19:22→19:32)
[2021-02-17 19:57] LABS: Glucose Point of Care 136 mg/dL (70-110)
[2021-02-17 19:57] LABS: Glucose Point of Care 114 mg/dL (70-110)
[2021-02-17] MEDS: escitalopram 10 mg Tablet 20 MG PO (20:22)
[2021-02-17] MEDS: aspirin 81 mg Chew Tablet PO (20:22)
[2021-02-17] MEDS: atorvastatin 40 mg Tablet PO (20:22)
[2021-02-17] MEDS: sodium chloride 0.9% 1,000 ML 75 ML IV (20:22)
--- NOTE | 2021-02-17 20:33 | PC.NURSE ---
Dr. Monson notified of Hbg of 7.3. New orders received. He is aware that this was drawn before the 2 Units administered. Wanting CVP closer to 20. Currently at 16
[2021-02-17 22:33] LABS: ABG PCO2 42.1 mmHg (35-45); ABG PH Result 7.37 (7.35-7.45); Alveolar-Arterial Oxygen Gradi 23.5 mmHg (5-10); Arterial Blood Gas Hematocrit 26.7 % (37-47); Base Excess ABG -1.2 mmol/L (-2.0-2.0); Blood Gas Sample Type Arterial; Blood Gas Tidal Volume 0.45; Carboxyhemoglobin 1.1 %THgb (0.4-20.1); HCO3 ABG 24.1 mmol/L (22-26); HGB O2 Sat 95.6 % (95-100); Ionized Calcium Level - ABG 1.1 mmol/L (1.1-1.4); Methemoglobin 1.2 % (0.4-1.5); Oxygen Device VENT; Oxygen Saturation ABG 97.8; PO2 ABG 88.3 mmHg (80.0-100.0); Potassium Level - ABG 3.8 mmol/L (3.5-5.0); Total Hemoglobin 8.7 g/dL (12-16)
[2021-02-18] VITALS (77 sets, daily range): BP systolic 89–133; BP diastolic 49–81; PULSE 67–100; RESP 14–39; TEMP 23.1–38; O2SAT 89–98
--- NOTE | 2021-02-18 00:11 | PC.NURSE ---
Cardiac Index 3.6. Dobutamine was set at 1mcg/min. This was turned off.
[2021-02-18 02:30] LABS: Basophils % 0.2 %; Eosinophils % 0.2 %; Hematocrit 28.8 % (37.0-47.0); Hemoglobin 9.9 g/dL (11.5-15.3); Lymphocytes # 1.7 10^3/uL (0.8-4.8); Lymphocytes % 18.3 %; Mean Corpuscular HGB Conc 34.4 g/dL (30.0-36.0); Mean Corpuscular Hemoglobin 33.3 pg (28.0-34.0); Monocytes # 1.1 10^3/uL (0.2-0.9); Monocytes % 11.7 %; Neutrophils # 6.33 10^3/uL (1.8-7.7); Neutrophils % 69.4 %; Nucleated Red Blood Cells % 0 %; Platelet Count 142 10^3/cmm (130-400); Red Blood Count 2.97 10^6/uL (4.1-5.3); Red Cell Distribution Width 14.8 % (12.1-15.1); White Blood Count 9.1 10^3/uL (4.0-10.0)
[2021-02-18 02:41] LABS: INR 1.21 (0.8-1.2)
[2021-02-18 02:42] LABS: Partial Thromboplastin Time 36.3 SECONDS (23.9-36.7)
[2021-02-18 02:51] LABS: Anion Gap 11.1 (5-19); Blood Urea Nitrogen 11 mg/dL (6-20); Calcium 7.1 mg/dL (8.5-10.5); Carbon Dioxide 23 mmol/L (22-29); Chloride 117 mmol/L (98-107); Glomerular Filtration Rate 106.7 mL/min (90-130); Glucose 115 mg/dL (65-115); Glucose Fasting 115 mg/dL (74-109); Magnesium 2.4 mg/dL (1.7-2.3); Osmolality Calculated 304 mOsm/kg (285-295); Potassium 4.1 mmol/L (3.5-5.1); Sodium 147 mmol/L (136-145)
[2021-02-18 04:13] LABS: ABG PCO2 38.7 mmHg (35-45); ABG PH Result 7.38 (7.35-7.45); Arterial Blood Gas Hematocrit 30.6 % (37-47); Base Excess ABG -2.1 mmol/L (-2.0-2.0); Blood Gas Sample Type Arterial; Blood Gas Tidal Volume 0.45; Carboxyhemoglobin 1.2 %THgb (0.4-20.1); HCO3 ABG 22.8 mmol/L (22-26); HGB O2 Sat 93.4 % (95-100); Ionized Calcium Level - ABG 1.1 mmol/L (1.1-1.4); Methemoglobin 1.1 % (0.4-1.5); Oxygen Device VENT; Oxygen Saturation ABG 95.5; PO2 ABG 70.4 mmHg (80.0-100.0); Potassium Level - ABG 3.6 mmol/L (3.5-5.0)
[2021-02-18 04:15] LABS: Blood Gas Sample Site ART LINE
[2021-02-18 04:16] LABS: Blood Gas Vent Mode SIMV
--- NOTE | 2021-02-18 04:57 | PM.PN ---
Subjective Subjective: Interval history: Postop day #1 status post CABG x4. Uneventful night. Resting comfortably on the ventilator which is being weaned. FiO2 at 40%. This morning's chest x-ray is still pending. I reviewed a.m. labs. Hemoglobin 9.9 after 2 unit transfusion overnight. Chest tube output reported at 900 cc since return from the OR, now becoming substantially more serous. Good urine output. Cardiac index 2.4. Heart rate 84. Blood pressure looks good. No arrhythmias reported. Modest peripheral edema secondary to third spacing as expected. Her nurse last night, Shanae Moscoso, reports no concerns. Vitals/I&O/Wt Last Vital Signs Temp 99.3 F 02/17/21 23:00 Pulse 88 02/18/21 04:00 Resp 16 02/18/21 02:30 BP 103/60 02/18/21 04:00 Pulse Ox 95 02/18/21 04:00 02/17/21 02/17/21 02/18/21 14:59 22:59 06:59 Intake Total 916 / 916 1311.75 / 2227.75 160 / 2387.75 Output Total 2278 / 2278 569 / 2847 Balance 916 / 916 -966.25 / -50.25 -409 / -459.25 Physical Exam Chest: COMMONS NORMALS: normal inspection of the chest OTHER: Surgical dressings and support tubes are in position. Chest wall stable. Resp: OTHER: Remains intubated with relatively clear breath sounds Cardio: COMMON NORMALS: regular rate, regular rhythm, S1 normal heart sound present and No murmurs present (Cardio) RATE: regular rate RHYTHM: regular rhythm HEART SOUNDS: S1 normal heart sound present GI: OTHER: Hypoactive bowel sounds. Abdomen soft Extremity: OTHER: There is 1+ peripheral edema Urinary Catheter Management^: Young: Cath Placed During This Visit: yes Reason for Continuing Indwelling Catheter: Accurate Measurement of Urinary Output in Critically Ill Patients Urinary Catheter Date of Insertion: 02/17/21 Urinary Catheter Time of Insertion: 07:00 Data : 02/18/21 02:27 02/18/21 02:27 A&P Assessment and plan (1) S/P CABG x 4: Postop day #1 status post CABG x4 secondary to severe three-vessel disease and non-STEMI Plan: Aspirin 81 mg daily. Metoprolol 12.5 mg twice daily. Atorvastatin 40 mg daily. We will wean ventilator this morning with plans for extubation. CBC, BMP, chest x-ray in a.m. Out of bed in chair this afternoon. Greatly appreciate the expertise and medical oversight of our hospitalist and cardiology colleagues. Status: Acute Attestations Medical Necessity Statement*: Postop day #1 status post CABG x4 secondary to severe three-vessel disease and non-STEMI Time Spent in Patient Care: 16 - 35 minutes Coding Level of Care Code Acute Heating And Air Conditioning Mechanic for Chg Fwd Diagnoses S/P CABG x 4 Z95.1
[2021-02-18] MEDS: propofol 1,000 MG/100 ML INJ 21.24 MG IV (05:30)
--- NOTE | 2021-02-18 06:00 | XR_ITS ---
WS: [id number] Exam: XR chest 1V portable [id number] Date/Time of Exam: 02/18/2021 6:00 AM Reason For Exam: POD#1 s/p CABG Comparison 02/17/2021. Pulmonary infiltrates show significant improvement since previous study. The heart is top limits norm al size. No pneumothorax. There are still residual infiltrates in the lower lung zones bilaterally. S igns of previous CABG surgery. A right IJ catheter ends in the midportion of the SVC. A second IJ cat heter is looped over the cardiac silhouette. An additional opaque tube superimposes the left chest. R egional bony elements are intact. The ET tube is in satisfactory position ending at about the level o f T4. XR/XR chest 1V portable [id number] IMPRESSION: 1. Improved bilateral infiltrates since previous exam. 2. ET tube in satisfactory position. Additional vascular lines in place as note d above.
--- NOTE | 2021-02-18 06:00 | ECG_ITS ---
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 BARNESB: 1970 Requested By: Art Monson Order Number: [id number] Reading MD: ANTONIA ROSALES Measurements Intervals [place] Rate: 87 P: 60 NH: 110 QRS: 76 QRSD: 112 T: 53 QT: 393 QTc: 475 Interpretive Statements SINUS RHYTHM WITH SHORT NH INTERVAL MODERATE INTRAVENTRICULAR CONDUCTION DELAY [110+ ms QRS DURATION] NONSPECIFIC T-WAVE ABNORMALITY Compared to ECG 02/17/2021 17:15:08 Short NH interval now present Intraventricular conduction delay now present Sinus tachycardia no longer present T-wave abnormality still present Electronically Signed On 02-18-2021 22:22:33 CDT by ANTONIA ROSALES [id number]
[2021-02-18 06:05] LABS: Glucose Point of Care 139 mg/dL (70-110)
[2021-02-18 06:05] LABS: Glucose Point of Care 120 mg/dL (70-110)
[2021-02-18 06:05] LABS: Glucose Point of Care 117 mg/dL (70-110)
[2021-02-18 06:05] LABS: Glucose Point of Care 117 mg/dL (70-110)
[2021-02-18 06:05] LABS: Glucose Point of Care 128 mg/dL (70-110)
[2021-02-18 06:05] LABS: Glucose Point of Care 119 mg/dL (70-110)
[2021-02-18 06:05] LABS: Glucose Point of Care 124 mg/dL (70-110)
[2021-02-18 06:05] LABS: Glucose Point of Care 116 mg/dL (70-110)
[2021-02-18 06:05] LABS: Glucose Point of Care 148 mg/dL (70-110)
[2021-02-18 06:05] LABS: Glucose Point of Care 109 mg/dL (70-110)
[2021-02-18 08:25] LABS: Glucose Point of Care 128 mg/dL (70-110)
[2021-02-18 08:25] LABS: Glucose Point of Care 127 mg/dL (70-110)
[2021-02-18] MEDS: pantoprazole 40 mg SDV IVP (08:33)
[2021-02-18] MEDS: morphine 4 mg/mL SDV 1 mL 2 MG IVP ×5 (08:34→19:53)
[2021-02-18] MEDS: aspirin 81 mg Chew Tablet PO (08:34)
[2021-02-18] MEDS: chlorhexidine gluconate 0.12% Btl 473 mL 15 ML MUCOUS MEM ×2 (08:35→17:46)
[2021-02-18] MEDS: mupirocin oint 22 gm 1 APPLIC NASAL ×2 (08:35→17:46)
[2021-02-18] MEDS: metoprolol tartrate 25 mg Tablet 12.5 MG PO ×2 (08:51→20:00)
[2021-02-18 09:15] LABS: Glucose Point of Care 133 mg/dL (70-110)
[2021-02-18] MEDS: fentaNYL 50 mcg/mL INJ 2mL IVP ×5 (09:35→21:07)
[2021-02-18 09:40] LABS: ABG PCO2 36.3 mmHg (35-45); ABG PH Result 7.38 (7.35-7.45); Arterial Blood Gas Hematocrit 36.7 % (37-47); Blood Gas Sample Site Not specified; Blood Gas Sample Type Arterial; HCO3 ABG 21.6 mmol/L (22-26); HGB O2 Sat 98.7 % (95-100); Ionized Calcium Level - ABG 1.1 mmol/L (1.1-1.4); Methemoglobin 0.5 % (0.4-1.5); Oxygen Saturation ABG > 100.0; Potassium Level - ABG 3.4 mmol/L (3.5-5.0)
--- NOTE | 2021-02-18 09:40 | PC.NURSE ---
Pt extubated 924 pt extubated by RT with nursing staff. Pt placed on 4L/NC. PT is awake and answering questions appropriately.
[2021-02-18 09:44] LABS: Procalcitonin 0.53 ng/mL (0-0.5)
[2021-02-18 09:54] LABS: ABG PCO2 45.4 mmHg (35-45); Arterial Blood Gas Hematocrit 35.3 % (37-47); Base Excess ABG -4.3 mmol/L (-2.0-2.0); Blood Gas Sample Site Not specified; Blood Gas Sample Type Arterial; HCO3 ABG 22.2 mmol/L (22-26); HGB O2 Sat 98.1 % (95-100); Ionized Calcium Level - ABG 1.1 mmol/L (1.1-1.4); Methemoglobin 0.6 % (0.4-1.5); Oxygen Saturation ABG 99.6; Potassium Level - ABG 3.4 mmol/L (3.5-5.0); Total Hemoglobin 11.5 g/dL (12-16)
[2021-02-18 09:55] LABS: ABG PCO2 40.1 mmHg (35-45); ABG PH Result 7.39 (7.35-7.45); Arterial Blood Gas Hematocrit 25.8 % (37-47); Base Excess ABG -0.9 mmol/L (-2.0-2.0); Blood Gas Allen Test Pos; Blood Gas Sample Site Not specified; Blood Gas Sample Type Arterial; HGB O2 Sat 98.9 % (95-100); Ionized Calcium Level - ABG 0.9 mmol/L (1.1-1.4); Methemoglobin 0.7 % (0.4-1.5); Oxygen Saturation ABG > 100.0; Potassium Level - ABG 4.5 mmol/L (3.5-5.0); Total Hemoglobin 8.4 g/dL (12-16)
[2021-02-18 09:59] LABS: ABG PCO2 41.6 mmHg (35-45); ABG PH Result 7.38 (7.35-7.45); Alveolar-Arterial Oxygen Gradi 6.3 mmHg (5-10); Arterial Blood Gas Hematocrit 26.3 % (37-47); Base Excess ABG -0.5 mmol/L (-2.0-2.0); Blood Gas Allen Test Pos; Blood Gas Sample Site Not specified; Blood Gas Sample Type Venous; Carboxyhemoglobin 1.4 %THgb (0.4-20.1); HCO3 ABG 24.7 mmol/L (22-26); HGB O2 Sat 85.4 % (95-100); Methemoglobin 0.7 % (0.4-1.5); Oxygen Saturation ABG 87.2; PO2 ABG 50.5 mmHg (80.0-100.0); Potassium Level - ABG 4.1 mmol/L (3.5-5.0); Total Hemoglobin 8.6 g/dL (12-16)
[2021-02-18 10:02] LABS: ABG PCO2 39.1 mmHg (35-45); ABG PH Result 7.39 (7.35-7.45); Arterial Blood Gas Hematocrit 27.4 % (37-47); Base Excess ABG -1.1 mmol/L (-2.0-2.0); Blood Gas Allen Test Pos; Blood Gas Sample Site Not specified; Blood Gas Sample Type Arterial; HCO3 ABG 23.7 mmol/L (22-26); HGB O2 Sat 99.1 % (95-100); Methemoglobin 0.6 % (0.4-1.5); Oxygen Saturation ABG > 100.0; Potassium Level - ABG 4.2 mmol/L (3.5-5.0); Total Hemoglobin 8.9 g/dL (12-16)
[2021-02-18 10:13] LABS: ABG PCO2 37.7 mmHg (35-45); Arterial Blood Gas Hematocrit 27.7 % (37-47); Base Excess ABG -1.3 mmol/L (-2.0-2.0); Blood Gas Allen Test Pos; Blood Gas Sample Site Not specified; Blood Gas Sample Type Arterial; Carboxyhemoglobin 1.1 %THgb (0.4-20.1); HCO3 ABG 23.3 mmol/L (22-26); HGB O2 Sat 98.9 % (95-100); Methemoglobin 0.6 % (0.4-1.5); Oxygen Saturation ABG > 100.0; Potassium Level - ABG 4.2 mmol/L (3.5-5.0)
[2021-02-18 10:13] LABS: Glucose Point of Care 123 mg/dL (70-110)
[2021-02-18 10:14] LABS: ABG PCO2 23.6 mmHg (35-45); ABG PCO2 38.1 mmHg (35-45); ABG PH Result 7.46 (7.35-7.45); ABG PH Result 7.55 (7.35-7.45); Arterial Blood Gas Hematocrit 23.3 % (37-47); Arterial Blood Gas Hematocrit 23.7 % (37-47); Base Excess ABG -1.5 mmol/L (-2.0-2.0); Base Excess ABG 3.2 mmol/L (-2.0-2.0); Blood Gas Allen Test Pos; Blood Gas Sample Site Not specified; Blood Gas Sample Type Arterial; Carboxyhemoglobin 1.1 %THgb (0.4-20.1); Carboxyhemoglobin 1.3 %THgb (0.4-20.1); HCO3 ABG 20.4 mmol/L (22-26); HCO3 ABG 27.2 mmol/L (22-26); HGB O2 Sat 98.5 % (95-100); HGB O2 Sat 98.7 % (95-100); Ionized Calcium Level - ABG 1.1 mmol/L (1.1-1.4); Methemoglobin 0.7 % (0.4-1.5); Methemoglobin 0.9 % (0.4-1.5); Oxygen Saturation ABG > 100.0; Potassium Level - ABG 3.9 mmol/L (3.5-5.0); Potassium Level - ABG 4.5 mmol/L (3.5-5.0); Total Hemoglobin 7.6 g/dL (12-16); Total Hemoglobin 7.7 g/dL (12-16)
[2021-02-18 10:15] LABS: ABG PCO2 48.2 mmHg (35-45); Arterial Blood Gas Hematocrit 23.3 % (37-47); Base Excess ABG -2.8 mmol/L (-2.0-2.0); Blood Gas Allen Test Pos; Blood Gas Sample Site Not specified; Blood Gas Sample Type Arterial; Carboxyhemoglobin 1.3 %THgb (0.4-20.1); HCO3 ABG 23.6 mmol/L (22-26); Methemoglobin 1.3 % (0.4-1.5); Oxygen Saturation ABG 97.6; PO2 ABG 94.3 mmHg (80.0-100.0); Potassium Level - ABG 3.7 mmol/L (3.5-5.0); Total Hemoglobin 7.6 g/dL (12-16)
--- NOTE | 2021-02-18 10:23 | PM.PN ---
Subjective Subjective: Interval history: Patient underwent four-vessel CABG yesterday with SVG to diagonal, SVG to OM, and SVG to PDA and NAVARRO to LAD. Has been extubated. Doing well. Had febrile episode today. Vitals/I&O/Wt Last Vital Signs Temp 100.0 F H 02/18/21 09:00 Pulse 85 02/18/21 09:00 Resp 18 02/18/21 09:00 BP 112/70 02/18/21 09:00 Pulse Ox 94 02/18/21 09:00 02/17/21 02/18/21 02/18/21 22:59 06:59 14:59 Intake Total 1311.75 / 2227.75 260 / 2487.75 66.1 / 66.1 Output Total 2278 / 2278 734 / 3012 165 / 165 Balance -966.25 / -50.25 -474 / -524.25 -98.9 / -98.9 Weight last 48 hrs Weight 240 lb Physical Exam Narrative: EXAM NARRATIVE: GENERAL: Alert and oriented x3. HEENT: Pupils equal round reactive to light. No pallor or icterus. NECK: No JVD. No carotid bruit. CARDIOVASCULAR SYSTEM: S1-S2 regular. No murmur rubs or gallops. RESPIRATORY SYSTEM: Clear to auscultation without wheezing. ABDOMEN: Soft, nontender and nondistended. Normal bowel sounds present. EXTREMITIES: No cyanosis. No edema. 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 No focal neurological deficits. SKIN: Normal turgor and temperature. PSYCH: Normal insight and judgment. Urinary Catheter Management^: Young: Cath Placed During This Visit: yes Reason for Continuing Indwelling Catheter: Accurate Measurement of Urinary Output in Critically Ill Patients Urinary Catheter Date of Insertion: 02/17/21 Urinary Catheter Time of Insertion: 07:00 Data : 02/19/21 04:00 02/19/21 04:00 Micro: Microbiology 02/18/21 08:21 Blood Culture - Preliminary Blood SPECIMEN COLLECTED 02/18/21 08:21 Blood Culture - Preliminary Blood SPECIMEN COLLECTED 02/17/21 17:04 Gram Stain - Final Sputum - Endotracheal Tube Aspirate A&P Assessment and plan (1) NSTEMI (non-ST elevated myocardial infarction): Patient had presented with non-ST elevation MO. Coronary angiogram showed severe triple-vessel coronary artery disease including AVIONICS SYSTEMS ENGINEER of RCA, severe proximal left circumflex artery stenosis and severe proximal and mid LAD stenosis. LAD appeared to be culprit vessel for non-ST elevation MO. Patient's LV systolic function was normal both on LV gram and echocardiogram. No significant EKG changes. She was having on and off chest discomfort episodes requiring nitro drip. We consulted CT surgery and patient underwent successful revascularization with CABG x4. Patient got SVG to OM, SVG to PDA and SVG to diagonal artery. She also got a NAVARRO to LAD. She is doing well postop. Had a febrile episode today. Can repeat chest x-ray. EKG shows normal sinus rhythm. Telemetry does not show any significant arrhythmias. Continue aspirin and statin. Metoprolol. Antibiotic therapy and steroid therapy per medicine team Status: Acute (2) Dyslipidemia: Status: Chronic (3) Asthma-COPD overlap syndrome: Status: Chronic (4) Sleep apnea: Status: Chronic Qualifiers: Sleep apnea type: unspecified type Qualified Code(s): G47.30 - Sleep apnea, unspecified (5) Smoker: Status: Chronic Additional A&P Information Family history of CAD History of neurocardiogenic syncope Thank you for involving us in the care of this patient. We will continue to follow. Please call with questions. Attestations Medical Necessity Statement*: Care expected to cross 2 midnights. Coding Level of Care Code Acute Personnel Associate for Erwin Braun Diagnoses NSTEMI (non-ST elevated myocardial infarction) I21.4 Dyslipidemia E78.5 Asthma-COPD overlap syndrome J44.9 Sleep apnea G47.30 Sleep apnea type: unspecified type Smoker F17.200
[2021-02-18 10:27] LABS: Blood Urine 2+ (Negative); Glucose Urine UA Norm (Normal); Ketones Urine Negative (Negative); Protein Urine Neg (Negative); Urine Appearance Clear (CLEAR); Urine Color Yellow (Yellow); pH Urine 5 (5-7)
[2021-02-18 10:28] LABS: Add Urine Microscopic? YES; Bilirubin Urine Neg (Negative); Leukocyte Esterase Urine Negative (Negative); Nitrate Urine Negative (Negative); Urobilinogen Urine Norm (Negative)
[2021-02-18 10:29] LABS: Bacteria Urine TRACE /hpf; Mucus Urine TRACE /hpf; RBC Urine 15-25 /hpf (0-2); Squamous Epithelial Cell Urine 0-4 /hpf (0-5)
[2021-02-18 10:30] LABS: Add Urine Culture? Yes
[2021-02-18 11:11] LABS: Glucose Point of Care 124 mg/dL (70-110)
[2021-02-18 12:00] LABS: Glucose Point of Care 120 mg/dL (70-110)
[2021-02-18] MEDS: dextrose 5%-sod chloride 0.45% 1,000 ML 75 ML IV (12:04)
--- NOTE | 2021-02-18 12:29 | PC.NURSE ---
[place] out [place] pulled at 1220 with the help of Anupam from OR. Gladis pulled at the same time as [place]. Pressure help per protocol, cleaned with chlorahexadine and bioclusive applied. No PVC noted. Pt doing well.
--- NOTE | 2021-02-18 12:54 | PC.OT ---
OT NOTE: WILL HOLD OT EVALUATION TODAY PATIENT WAS EXTUBATED THIS MORNING. WILL ATTEMPT TOMORROW.
[2021-02-18 13:05] LABS: Glucose Point of Care 119 mg/dL (70-110)
--- NOTE | 2021-02-18 13:38 | PC.NUTR ---
Nutrition consult received, however will attempt to offer education at later time given pt undergoing CABG X 4 today with recent extubation. See full RD assessment for further details.
[2021-02-18 14:07] LABS: Glucose Point of Care 134 mg/dL (70-110)
[2021-02-18 16:02] LABS: Glucose Point of Care 152 mg/dL (70-110)
--- NOTE | 2021-02-18 16:08 | PM.PN ---
Subjective Subjective: Interval history: Patient extubated to nasal cannula today Status post blood transfusion overnight hemoglobin 9.9 Patient is able to make eye contact and make her needs known he is using hand gestures as well Cardiac index 2.6 SVO 265 Mean arterial pressure 77 PAP mean pressure 23 heart rate 83 Vitals/I&O/Wt Last Vital Signs Temp 99.0 F 02/18/21 15:00 Pulse 84 02/18/21 15:00 Resp 18 02/18/21 15:00 BP 120/80 02/18/21 15:00 Pulse Ox 92 02/18/21 15:00 02/18/21 02/18/21 02/18/21 06:59 14:59 22:59 Intake Total 260 / 2487.75 166.1 / 166.1 Output Total 734 / 3012 255 / 255 0 / 255 Balance -474 / -524.25 -88.9 / -88.9 0 / -88.9 Weight last 48 hrs Weight 108.862 kg Physical Exam Narrative: EXAM NARRATIVE: female Laying in her bed showing signs of distress secondary to pain Able to use hand gestures to tell us about pain in her left arm at arterial line site Young catheter, art line, left-sided chest tube, Right-sided triple-lumen catheter IJ with PA introducer Sinus rhythm Recent obesity, Low symmetry no edema right leg is wrapped Lower extremity no active signs of ulcer Patient is making eye contact and understanding verbal command Urinary Catheter Management^: Young: Cath Placed During This Visit: yes Reason for Continuing Indwelling Catheter: Accurate Measurement of Urinary Output in Critically Ill Patients Urinary Catheter Date of Insertion: 02/17/21 Urinary Catheter Time of Insertion: 07:00 Data : 02/18/21 02:27 02/18/21 02:27 Micro: Microbiology 02/18/21 08:21 Blood Culture - Preliminary Blood SPECIMEN COLLECTED 02/18/21 08:21 Blood Culture - Preliminary Blood SPECIMEN COLLECTED 02/17/21 17:04 Gram Stain - Final Sputum - Endotracheal Tube Aspirate A&P Assessment and plan (1) S/P CABG x 4: Status: Acute (2) Postoperative anemia: Status: Acute (3) Postoperative fever: Status: Acute Additional A&P Information Status post CABG x4 Postop day 1 Status post blood transfusion, 2 units currently hemoglobin stable with normal mean arterial pressure Off dobutamine drip Initiated aspirin, metoprolol and atorvastatin Postoperative fever requested blood culture, lactic acid, urinalysis, no leukocytosis, I would hold off on adding any antibiotic Lactic came back 1.0 Calcium 7.1 magnesium 2.4 Procalcitonin 0.5 not remarkably high She has been giving albumin Patient has been getting cefruxime postoperatively last dose is scheduled for tomorrow I would not add more antibiotics at this point Sodium 147: Change normal saline to D5 She does have 1+ pitting edema in lower extremities Postoperative water deficit free water deficit: 2.5 L Closely monitor for any signs of worsening from edema, fluid overload Hypoxia related to hypoventilation postoperative extubated today 02/18 to nasal cannula No active neurological deficit Patient does have history of sleep apnea, CPAP to be used if tolerable overnight Autonomic dysfunction Patient was using fludrocortisone at home regimen and stress dose steroids were added at the time of surgery We will put her on maintenance therapy currently blood pressure stable off dobutamine drip Patient has stayed euglycemic, she does not carry history of diabetes, her insulin drip can be turned off and we can monitor her blood sugar with every 6 hours sliding scale Full code Advance diet once cleared by cardiothoracic DVT prophylaxis SCDs patient received blood transfusion Attestations Medical Necessity Statement*: Continue ICU management Time Spent in Patient Care: 16 - 35 minutes Coding Level of Care Code Acute Line Out Worker for Erwin Fwalvarez Diagnoses S/P CABG x 4 Z95.1 Postoperative anemia D64.9 Postoperative fever R50.82
--- NOTE | 2021-02-18 16:14 | PC.SOCIAL ---
Pg 2 IMM Explained to pt Pg 2 IMM. No questions voiced. Provided pt a copy. No questions voiced. Initialed, dated, & timed a copy & placed in chart.
--- NOTE | 2021-02-18 17:54 | PC.NURSE ---
Shift Note Frequent safety and comfort rounds continue. Orders and/or nursing care completed as indicated. Patient monitored for response to intervention and treatment(s). Education provided includes sternal precautions. Patient and/or technical support representative verbalized understanding. Pt was extubated this morning around 0930. Hardeep and oleg pulled with the help of Anupam from OR at 1230 Pt had a bradycardic episode that lasted less than 60 seconds. She was able to answer questions during her bradying down. The lowest was 38 then slowly went back up into the low 80's. Her sats stayed above 90 and BP stayed 120's/70's. Dr Monson was notified and no changes were made. Dr Monson ordered for left radial art line to be d/c at 1630 D/c Insulin drip and change to SS insulin with accuchecks at [facility]. Will continue to monitor.
[2021-02-18] MEDS: oxyCODONE-APAP 5-325 mg Tablet PO (19:55)
[2021-02-18] MEDS: atorvastatin 40 mg Tablet PO (19:58)
[2021-02-18] MEDS: escitalopram 10 mg Tablet 20 MG PO (19:58)
[2021-02-18 21:07] LABS: Glucose Point of Care 162 mg/dL (70-110)
[2021-02-19] VITALS (35 sets, daily range): BP systolic 88–134; BP diastolic 59–78; PULSE 77–103; RESP 15–40; TEMP 36.6–36.7; O2SAT 89–97
[2021-02-19] MEDS: morphine 4 mg/mL SDV 1 mL 2 MG IVP ×2 (00:30→20:00)
[2021-02-19] MEDS: oxyCODONE-APAP 5-325 mg Tablet PO ×5 (01:56→23:31)
--- NOTE | 2021-02-19 02:34 | PC.NURSE ---
0200 - Patient pulled oxygen off and became short of breath, attempting to get out of bed. Assisted patient to sit on side of bed, replaced O2 on face and increased to 7LNC. Instructed patient to cough and deep breath while splinting heart pillow. EZ pap done with patient. 2 oxycodone given PO for pain 10/10 on 0-10 pain scale. Assisted to stand and move to chair at bedside. 0230 - Resting comfortably in chair at bedside, respiratory rate decreased to 20 and O2 sat 92% on 5L NC. Patient reports pain is decreased.
[2021-02-19 04:13] LABS: Glucose Point of Care 130 mg/dL (70-110)
[2021-02-19 04:42] LABS: Basophils # 0.1 10^3/uL (0.0-0.1); Basophils % 0.3 %; Eosinophils % 0.1 %; Hematocrit 32.1 % (37.0-47.0); Hemoglobin 10.5 g/dL (11.5-15.3); Lymphocytes # 1.4 10^3/uL (0.8-4.8); Lymphocytes % 8.3 %; Mean Corpuscular HGB Conc 32.7 g/dL (30.0-36.0); Mean Corpuscular Hemoglobin 33.1 pg (28.0-34.0); Mean Corpuscular Volume 101.3 fl (81-99); Mean Platelet Volume 10.7 fL (7.4-10.4); Monocytes # 1.6 10^3/uL (0.2-0.9); Monocytes % 9.4 %; Neutrophils # 13.46 10^3/uL (1.8-7.7); Neutrophils % 81.2 %; Nucleated Red Blood Cells % 0 %; Platelet Count 150 10^3/cmm (130-400); Red Blood Count 3.17 10^6/uL (4.1-5.3); Red Cell Distribution Width 14.6 % (12.1-15.1); White Blood Count 16.6 10^3/uL (4.0-10.0)
[2021-02-19 05:19] LABS: Anion Gap 11.2 (5-19); Blood Urea Nitrogen 11 mg/dL (6-20); Carbon Dioxide 24 mmol/L (22-29); Chloride 117 mmol/L (98-107); Glomerular Filtration Rate 106.7 mL/min (90-130); Glucose 133 mg/dL (65-115); Osmolality Calculated 307 mOsm/kg (285-295); Potassium 4.2 mmol/L (3.5-5.1); Sodium 148 mmol/L (136-145)
--- NOTE | 2021-02-19 06:00 | XR_ITS ---
WS: [id number] Exam: XR chest 1V portable [id number] Date/Time of Exam: 02/19/2021 5:33 AM Reason For Exam: Postop day #2 status post CABG x4 Comparison 02/18/2021. Right basal infiltrate essentially unchanged. Mild plaque atelectasis in the left base. Heart size is normal. Right IJ catheter ends in the lower one third of the SVC. A left-sided chest tube is unchang ed in position. ET tube and enteric tube have been removed. XR/XR chest 1V portable [id number] IMPRESSION: 1. Right basal infiltrate showing little change since prior study. 2. ET tube and enteric tube have been removed since previous study.
--- NOTE | 2021-02-19 07:06 | PM.PN ---
Subjective Subjective: Interval history: Postop day #2 status post CABG. Not surprisingly, it has been a challenge to control her postoperative discomfort, though it was much improved over the past several hours. She is up in chair on rounds this morning. She is conversant. Incentive spirometry, however, only pulling about 250 to 300 cc. She will need quite a bit of pulmonary toilet. Chest tube output is higher than usual, though not unexpected given her 4 bypasses and the fact that she has been loaded on Plavix prior to surgery. Chest tube output just over 300 cc the past 12 hours. Pleural drainage is serous and the mediastinal drainage is slowly beginning to lighten in color. No arrhythmias reported. Vital signs have been stable. Chest x-ray is relatively clear though can certainly use more pulmonary toilet. No undrained pleural effusions. Cardiac silhouette is stable. Support lines remain in position. Vitals/I&O/Wt Last Vital Signs Temp 98.0 F 02/19/21 04:00 Pulse 86 02/19/21 06:00 Resp 25 H 02/19/21 06:00 BP 104/65 02/19/21 06:00 Pulse Ox 92 02/19/21 06:00 02/18/21 02/19/21 02/19/21 22:59 06:59 14:59 Intake Total 210 / 376.1 960 / 1336.1 Output Total 1380 / 1635 1555 / 3190 Balance -1170 / -1258.9 -595 / -1853.9 Weight last 48 hrs Weight 240 lb Physical Exam Const: COMMON NORMALS: alert Chest: COMMONS NORMALS: normal inspection of the chest and normal palpation of entire chest wall OTHER: Surgical dressing is clean and dry. Resp: COMMON NORMALS: negative for normal respiratory effort OTHER: Decreased respiratory effort. Will need aggressive and protracted pulmonary toilet. Cardio: COMMON NORMALS: regular rate, regular rhythm, S1 normal heart sound present and No gallops present (Cardio) RATE: regular rate RHYTHM: regular rhythm HEART SOUNDS: S1 normal heart sound present OTHER: Light chest tube rub. GI: COMMON NORMALS: non-tender AUSCULTATION: Yes Hypoactive bowel sounds present Extremity: OTHER: 1+ peripheral edema Neuro: COMMON NORMALS: no focal motor deficits and no sensory deficits noted SENSORIUM/ORIENTATION: Yes alert Urinary Catheter Management^: Young: Cath Placed During This Visit: yes Reason for Continuing Indwelling Catheter: Accurate Measurement of Urinary Output in Critically Ill Patients Urinary Catheter Date of Insertion: 02/17/21 Urinary Catheter Time of Insertion: 07:00 Data : 02/19/21 04:00 02/19/21 04:00 Micro: Microbiology 02/18/21 08:21 Blood Culture - Preliminary Blood SPECIMEN COLLECTED 02/18/21 08:21 Blood Culture - Preliminary Blood SPECIMEN COLLECTED 02/17/21 17:04 Gram Stain - Final Sputum - Endotracheal Tube Aspirate A&P Assessment and plan (1) S/P CABG x 4: Postop day #2 status post CABG x4. Recommendation: We continue aggressive pulmonary toilet and ambulation. Chest tubes will need to remain in place at least another 48 hours if not longer. If peripheral IV can be established, Can be removed. Titrate beta-lay as necessary related to heart rate and blood pressure. Continue lifelong aspirin. Continue cholesterol lowering agents. We will leave wound VAC dressing in place until postop day 4 or 5 with continued support of her breast tissue to avoid tension along the suture line. IV insulin protocol may be discontinued and initiation of medium sliding scale. CBC, BMP, chest x-ray in a.m. I will be off site for the next 36 hours. I may be reached by phone. Status: Acute Attestations Medical Necessity Statement*: Postop day #2 status post CABG x4 Time Spent in Patient Care: 16 - 35 minutes Coding Level of Care Code Acute Marketing Effectiveness Manager for Chg Fwd Diagnoses S/P CABG x 4 Z95.1
[2021-02-19 07:48] LABS: Glucose Point of Care 123 mg/dL (70-110)
[2021-02-19] MEDS: hydrocortisone 100 mg/2 mL SDV 50 MG IVP (07:56)
[2021-02-19] MEDS: chlorhexidine gluconate 0.12% Btl 473 mL 15 ML MUCOUS MEM ×2 (08:45→17:56)
[2021-02-19] MEDS: mupirocin oint 22 gm 1 APPLIC NASAL ×2 (08:46→17:56)
[2021-02-19] MEDS: fludrocortisone 0.1 mg Tablet PO ×2 (08:46→17:56)
[2021-02-19] MEDS: aspirin 81 mg Chew Tablet PO (08:47)
[2021-02-19] MEDS: metoprolol tartrate 25 mg Tablet 12.5 MG PO ×2 (08:51→19:59)
--- NOTE | 2021-02-19 09:18 | PC.NURSE ---
0830: states she lives with pain at a #4 at home.
--- NOTE | 2021-02-19 09:18 | PC.NURSE ---
0700: recd. up in chair, dozing. no c/o.
--- NOTE | 2021-02-19 09:19 | PC.NURSE ---
0840: p.t. in this am. ambulated from icu 12 to crash cart and back. barney. well encouraged to slow breathing. states she normally breathes like that at home. enc. to slow beathing down. enc. to use i/s can only get about 250ml. does have a moist non productive cough.
[2021-02-19 11:39] LABS: Glucose Point of Care 136 mg/dL (70-110)
--- NOTE | 2021-02-19 11:49 | PC.NURSE ---
after 4 sticks by 2separate staff, new iv start stopped. right ac site has a good blood return.
[2021-02-19] MEDS: dextrose 5%-sod chloride 0.45% 1,000 ML 75 ML IV (12:24)
--- NOTE | 2021-02-19 13:19 | PC.NURSE ---
here. continue with i/s can get just under 500ml now with lots encouragemnt.
--- NOTE | 2021-02-19 15:00 | P.PN_ITS ---
Subjective Subjective: Interval history: Stress dose steroids were added yesterday, today leukocytosis most likely secondary to steroid response No febrile episode in last 24 hours low-grade temperature day before yesterday noted Patient is able to walk down the melo, today we are planning to remove her right IJ after we get a good peripheral IV Patient is complaining of pain not taking deep breaths Has incentive spirometry Chest x-ray showing resolution of bilateral infiltrates Sodium 148 currently on D5 half-normal for water deficit at lower rate to prevent fluid overload state Patient is able to eat today Chest x-ray shows right basal infiltrate concern for aspiration pneumonitis Vitals/I&O/Wt Last Vital Signs Temp 97.8 F 02/19/21 08:00 Pulse 91 02/19/21 14:00 Resp 21 H 02/19/21 13:00 BP 103/59 02/19/21 14:00 Pulse Ox 97 02/19/21 13:00 02/19/21 02/19/21 02/19/21 06:59 14:59 22:59 Intake Total 960 / 1336.1 570 / 570 Output Total 1555 / 3190 Balance -595 / -1853.9 570 / 570 Weight last 48 hrs Weight 110.308 kg Weight 108.862 kg Physical Exam Narrative: EXAM NARRATIVE: Sitting in her chair Complaining of pain Able to eat and take small sips Awake alert oriented x3 GCS 15 Bilateral breath sounds diminished airflow Has breast binder Abdomen soft nontender Bilateral lower extremity wrapped with SCDs and bandage No active signs of ischemia or ulcer EOMI, PERRLA no neurological deficits Currently saturating well on 4 L nasal cannula Urinary Catheter Management^: Yuong: Cath Placed During This Visit: yes Reason for Continuing Indwelling Catheter: Accurate Measurement of Urinary Output in Critically Ill Patients Urinary Catheter Date of Insertion: 02/17/21 Urinary Catheter Time of Insertion: 07:00 Data : 02/19/21 04:00 02/19/21 04:00 Micro: Microbiology 02/17/21 17:04 Gram Stain - Final Sputum - Endotracheal Tube Aspirate Sputum Culture - Preliminary 02/18/21 09:30 Urine Culture - Preliminary Urine Catheterized 02/18/21 08:21 Blood Culture - Preliminary Blood NEGATIVE TO DATE 02/18/21 08:21 Blood Culture - Preliminary Blood NEGATIVE TO DATE A&P Assessment and plan (1) Postoperative fever: Status: Acute (2) Postoperative anemia: Status: Acute (3) S/P CABG x 4: Status: Acute (4) Triple vessel disease of the heart: Status: Acute (5) NSTEMI (non-ST elevated myocardial infarction): Status: Acute (6) Depression: Status: Chronic (7) Chronic neck and back pain: Status: Chronic Additional A&P Information Status post CABG postop day 2 Postoperative anemia, postoperative fever Cultures negative to date, has been afebrile since last 24 hours Off vasopressors Aspirin metoprolol atorvastatin continued Lactic acid is normal Status post albumin postoperatively No active chest pain, vitals stable She is saturating well on 4 L nasal cannula Starting to eat today Pleural drain output 210 mL, mediastinal drain output 175 mL Drainage seems serosanguineous Hemoglobin stable after blood transfusion Dr. Monson is planning to keep wound VAC in place for at least 5 days and keep chest tube in place for at least next 48 hours Remove right-sided central line today Hypernatremia with 2.5 L water deficit I will keep her on gentle hydration with D5 to avoid fluid overload state I am anticipating if this will improve with initiation of her diet today Hypoventilation, acute hypoxia postoperatively Patient was encouraged for incentive spirometry, pulmonary toilet Chest x-ray shows improvement of bilateral infiltrates other than the right lower lobe concerning changes for aspiration pneumonitis Autonomic dysfunction I have started her on stress dose steroids, started fludrocortisone as well Euglycemic we will change her sliding scale to AC at bedtime Patient does have history of sleep apnea, can use CPAP overnight Full code Clear liquid diet DVT prophylaxis SCDs Attestations Medical Necessity Statement*: ICU management to be continued for above- mentioned etiology Time Spent in Patient Care: 16 - 35 minutes Coding Level of Care Code Acute Wet End Supervisor for Chg Fwd Diagnoses Postoperative fever R50.82 Postoperative anemia D64.9 S/P CABG x 4 Z95.1 Triple vessel disease of the heart I25.10 NSTEMI (non-ST elevated myocardial infarction) I21.4 Depression F32.9 Chronic neck and back pain M54.2; M54.9; G89.29
--- NOTE | 2021-02-19 16:09 | P.PN_ITS ---
Subjective Subjective: Interval history: Patient says she has pain. Doesnt specify where. Has ambulated today. No issues. No more febrile episodes. She was started on augmentin per medicine team for likely lung infiltrates Vitals/I&O/Wt Last Vital Signs Temp 97.8 F 02/19/21 08:00 Pulse 91 02/19/21 14:00 Resp 21 H 02/19/21 13:00 BP 103/59 02/19/21 14:00 Pulse Ox 97 02/19/21 13:00 02/19/21 02/19/21 02/19/21 06:59 14:59 22:59 Intake Total 960 / 1336.1 570 / 570 Output Total 1555 / 3190 Balance -595 / -1853.9 570 / 570 Weight last 48 hrs Weight 243 lb 3 oz Weight 240 lb Physical Exam Narrative: EXAM NARRATIVE: GENERAL: Alert and oriented x3. HEENT: Pupils equal round reactive to light. No pallor or icterus. NECK: No JVD. No carotid bruit. CARDIOVASCULAR SYSTEM: S1-S2 regular. No murmur rubs or gallops. RESPIRATORY SYSTEM: Clear to auscultation without wheezing. ABDOMEN: Soft, nontender and nondistended. Normal bowel sounds present. EXTREMITIES: No cyanosis. No edema. ASSOCIATE DIRECTOR CAREER SERVICES: Patient is alert oriented ?3. No focal neurological deficits. SKIN: Normal turgor and temperature. PSYCH: Normal insight and judgment. Urinary Catheter Management^: Young: Cath Placed During This Visit: yes Reason for Continuing Indwelling Catheter: Accurate Measurement of Urinary Output in Critically Ill Patients Urinary Catheter Date of Insertion: 02/17/21 Urinary Catheter Time of Insertion: 07:00 Data : 02/20/21 03:33 02/20/21 03:33 Micro: Microbiology 02/17/21 17:04 Gram Stain - Final Sputum - Endotracheal Tube Aspirate Sputum Culture - Preliminary 02/18/21 09:30 Urine Culture - Preliminary Urine Catheterized 02/18/21 08:21 Blood Culture - Preliminary Blood NEGATIVE TO DATE 02/18/21 08:21 Blood Culture - Preliminary Blood NEGATIVE TO DATE A&P Assessment and plan (1) NSTEMI (non-ST elevated myocardial infarction): Patient had presented with non-ST elevation MO. Coronary angiogram showed severe triple-vessel coronary artery disease including CHART CHANGER of RCA, severe proximal left circumflex artery stenosis and severe proximal and mid LAD stenosis. LAD appeared to be culprit vessel for non-ST elevation MO. Patient's LV systolic function was normal both on LV gram and echocardiogram. No significant EKG changes. She was having on and off chest discomfort episodes requiring nitro drip. We consulted CT surgery and patient underwent successful revascularization with CABG x4. Patient got SVG to OM, SVG to PDA and SVG to diagonal artery. She also got a NAVARRO to LAD. She is doing well postop. Had febrile episodes yesterday. CXR showed possible infiltrates and was started on augmentin. EKG shows normal sinus rhythm. Telemetry does not show any significant arrhythmias. Continue aspirin and statin. Metoprolol. Antibiotic therapy and steroid therapy per medicine team Status: Acute (2) Dyslipidemia: Status: Chronic (3) Asthma-COPD overlap syndrome: Status: Chronic (4) Sleep apnea: Status: Chronic Qualifiers: Sleep apnea type: unspecified type Qualified Code(s): G47.30 - Sleep apnea, unspecified (5) Smoker: Status: Chronic Additional A&P Information Family history of CAD History of neurocardiogenic syncope Thank you for involving us in the care of this patient. We will continue to follow. Please call with questions. Attestations Medical Necessity Statement*: Care expected to cross 2 midnights. Coding Level of Care Code Acute Lead Cytogenetic Technologist for Oweng Kade Diagnoses NSTEMI (non-ST elevated myocardial infarction) I21.4 Dyslipidemia E78.5 Asthma-COPD overlap syndrome J44.9 Sleep apnea G47.30 Sleep apnea type: unspecified type Smoker F17.200
--- NOTE | 2021-02-19 16:58 | PC.NURSE ---
1420: assisted back to bed after ambulating into hallway to old volunteer desk and back. tol. bryan.
--- NOTE | 2021-02-19 16:59 | PC.NURSE ---
got 500 4 x's on i/s and is able to hold blue ball up longer.
[2021-02-19 17:29] LABS: Glucose Point of Care 105 mg/dL (70-110)
[2021-02-19] MEDS: amoxicillin-clav 875-125 mg Tablet 1 TAB PO (17:56)
--- NOTE | 2021-02-19 17:58 | PC.NURSE ---
sitting up in bed, watching tv. eating supper.
[2021-02-19] MEDS: FUROsemide 10 mg/mL SDV 2mL 20 MG IVP (18:49)
--- NOTE | 2021-02-19 18:58 | PC.NURSE ---
dr. amador called in checking on pt. orders noted.
[2021-02-19] MEDS: atorvastatin 40 mg Tablet PO (19:59)
[2021-02-19] MEDS: escitalopram 10 mg Tablet 20 MG PO (19:59)
[2021-02-20] VITALS (53 sets, daily range): BP systolic 93–133; BP diastolic 52–73; PULSE 70–92; RESP 8–35; TEMP 36.8–37.2; O2SAT 88–100
[2021-02-20] MEDS: morphine 4 mg/mL SDV 1 mL 2 MG IVP ×2 (00:19→17:16)
[2021-02-20 03:58] LABS: Basophils # 0.1 10^3/uL (0.0-0.1); Basophils % 0.3 %; Eosinophils # 0.2 10^3/uL (0.0-0.8); Eosinophils % 1.4 %; Hematocrit 29.9 % (37.0-47.0); Hemoglobin 9.8 g/dL (11.5-15.3); Lymphocytes # 2.5 10^3/uL (0.8-4.8); Mean Corpuscular HGB Conc 32.8 g/dL (30.0-36.0); Mean Corpuscular Volume 100.7 fl (81-99); Mean Platelet Volume 10.6 fL (7.4-10.4); Monocytes # 1.1 10^3/uL (0.2-0.9); Monocytes % 7.8 %; Neutrophils # 10.51 10^3/uL (1.8-7.7); Neutrophils % 72.5 %; Nucleated Red Blood Cells % 0 %; Platelet Count 141 10^3/cmm (130-400); Red Blood Count 2.97 10^6/uL (4.1-5.3); Red Cell Distribution Width 14.1 % (12.1-15.1); White Blood Count 14.5 10^3/uL (4.0-10.0)
[2021-02-20 04:51] LABS: Anion Gap 10.2 (5-19); Blood Urea Nitrogen 11 mg/dL (6-20); Calcium 8.2 mg/dL (8.5-10.5); Carbon Dioxide 24 mmol/L (22-29); Chloride 110 mmol/L (98-107); Glomerular Filtration Rate 131.7 mL/min (90-130); Glucose 99 mg/dL (65-115); Osmolality Calculated 291 mOsm/kg (285-295); Potassium 3.2 mmol/L (3.5-5.1); Sodium 141 mmol/L (136-145)
--- NOTE | 2021-02-20 06:00 | XRR_ITS ---
PROCEDURE INFORMATION: Exam: XR Chest Exam date and time: 02/20/2021 6:00 AM Age: 50 years old Clinical indication: Prior surgery; Surgery date: 3-7 days post-operative; Patient HX: F/u cabg post op day 3; Additional info: Pod #3 status post cabg TECHNIQUE: Imaging protocol: XR of the chest. Views: 1 view. Total images: 1 COMPARISON: CR XR chest 1V portable [id number] 02/19/2021 5:32 AM FINDINGS: Tubes, catheters and devices: Right jugular line has been removed. Tubes and catheters are otherwise unchanged from the prior exam. Lungs: Pulmonary vascular congestion improved. Slightly improved bilateral pleuroparenchymal disease. Pleural spaces: No pneumothorax. Heart/Mediastinum: Prior coronary artery bypass grafting. Cardiomegaly. Bones/joints: Osseous structures are unchanged from the prior exam. XR/XR chest 1V portable [id number] IMPRESSION: 1. Right jugular line has been removed. Tubes and catheters are otherwise unchanged from the prior exam. 2. Cardiomegaly with improved pulmonary vascular congestion. 3. Slightly improved bilateral pleuroparenchymal disease.
[2021-02-20] MEDS: potassium chloride ER 20 mEq Tablet PO (07:30)
[2021-02-20] MEDS: FUROsemide 10 mg/mL SDV 2mL 20 MG IVP (07:30)
[2021-02-20] MEDS: oxyCODONE-APAP 5-325 mg Tablet PO ×3 (07:36→20:15)
[2021-02-20] MEDS: potassium chloride oral liq 20 mEq/15 mL UDC 40 MEQ PO (07:53)
[2021-02-20] MEDS: aspirin 81 mg Chew Tablet PO (09:08)
[2021-02-20] MEDS: fludrocortisone 0.1 mg Tablet PO ×2 (09:08→17:34)
[2021-02-20] MEDS: amoxicillin-clav 875-125 mg Tablet 1 TAB PO ×2 (09:08→17:34)
[2021-02-20] MEDS: mupirocin oint 22 gm 1 APPLIC NASAL ×2 (09:11→18:20)
[2021-02-20] MEDS: metoprolol tartrate 25 mg Tablet 12.5 MG PO ×2 (09:15→20:17)
[2021-02-20] MEDS: chlorhexidine gluconate 0.12% Btl 473 mL 15 ML MUCOUS MEM ×2 (09:17→18:20)
[2021-02-20] MEDS: fentaNYL 50 mcg/mL INJ 2mL IVP ×3 (09:21→14:37)
--- NOTE | 2021-02-20 10:02 | P.PN_ITS ---
Subjective Subjective: Interval history: Patient still has pain at sternotomy site. However is feeling better than before. Labs are stable. Afebrile. Vitals/I&O/Wt Last Vital Signs Temp 98.4 F 02/20/21 08:00 Pulse 91 02/20/21 08:00 Resp 18 02/20/21 09:21 BP 130/68 02/20/21 08:00 Pulse Ox 95 02/20/21 09:21 02/19/21 02/20/21 02/20/21 22:59 06:59 14:59 Intake Total 1215 / 1785 Output Total 1210 / 1210 660 / 1870 Balance 5 / 575 -660 / -85 Weight last 48 hrs Weight 232 lb 1.6 oz Weight 243 lb 3 oz Physical Exam Narrative: EXAM NARRATIVE: GENERAL: Alert and oriented x3. HEENT: Pupils equal round reactive to light. No pallor or icterus. NECK: No JVD. No carotid bruit. CARDIOVASCULAR SYSTEM: S1-S2 regular. No murmur rubs or gallops. RESPIRATORY SYSTEM: Clear to auscultation without wheezing. ABDOMEN: Soft, nontender and nondistended. Normal bowel sounds present. EXTREMITIES: No cyanosis. No edema. GASKET NOTCHER: Patient is alert oriented ?3. No focal neurological deficits. SKIN: Normal turgor and temperature. PSYCH: Normal insight and judgment. Urinary Catheter Management^: Young: Cath Placed During This Visit: yes Reason for Continuing Indwelling Catheter: Accurate Measurement of Urinary Output in Critically Ill Patients Urinary Catheter Date of Insertion: 02/17/21 Urinary Catheter Time of Insertion: 07:00 Data : 02/20/21 03:33 02/20/21 17:05 Micro: Microbiology 02/18/21 09:30 Urine Culture - Final Urine Catheterized 02/17/21 17:04 Gram Stain - Final Sputum - Endotracheal Tube Aspirate Sputum Culture - Preliminary 02/18/21 08:21 Blood Culture - Preliminary Blood NEGATIVE TO DATE 02/18/21 08:21 Blood Culture - Preliminary Blood NEGATIVE TO DATE A&P Assessment and plan (1) NSTEMI (non-ST elevated myocardial infarction): Patient had presented with non-ST elevation GA. Coronary angiogram showed severe triple-vessel coronary artery disease including MICROBIOLOGICAL LABORATORY TECHNICIAN of RCA, severe prox imal left circumflex artery stenosis and severe proximal and mid LAD stenosis. LAD appeared to be culprit vessel for non-ST elevation GA. Patient's LV systolic function was normal both on LV gram and echocardiogram. No significant EKG changes. She was having on and off chest discomfort episodes requiring nitro drip. We consulted CT surgery and patient underwent successful revascularization with CABG x4. Patient got SVG to OM, SVG to PDA and SVG to diagonal artery. She also got a NAVARRO to LAD. She is doing well postop. Had febrile episodes on 02/18. CXR showed possible infiltrates and was started on augmentin. No more febrile episodes. EKG shows normal sinus rhythm. Telemetry does not show any significant arrhythmias. Continue aspirin and statin. Metoprolol. Antibiotic therapy and steroid therapy per medicine team Status: Acute (2) Dyslipidemia: Status: Chronic (3) Asthma-COPD overlap syndrome: Status: Chronic (4) Sleep apnea: Status: Chronic Qualifiers: Sleep apnea type: unspecified type Qualified Code(s): G47.30 - Sleep apnea, unspecified (5) Smoker: Status: Chronic (6) Postoperative anemia: Received transfusion with PRBC X 2 units Status: Acute (7) Postoperative fever: Started on augmentin Status: Acute Additional A&P Information Family history of CAD History of neurocardiogenic syncope Thank you for involving us in the care of this patient. We will continue to follow. Please call with questions. Attestations Medical Necessity Statement*: Care expected to cross 2 midnights. Coding Level of Care Code Acute Women'S Ministry Director for Chg Fwd Diagnoses NSTEMI (non-ST elevated myocardial infarction) I21.4 Dyslipidemia E78.5 Asthma-COPD overlap syndrome J44.9 Sleep apnea G47.30 Sleep apnea type: unspecified type Smoker F17.200 Postoperative anemia D64.9 Postoperative fever R50.82
--- NOTE | 2021-02-20 12:08 | PC.NURSE ---
Hourly IS Treatment done at 1148.
--- NOTE | 2021-02-20 13:35 | PC.SOCIAL ---
IMM update IMM updated with patient. Verbalized an understanding. Copy of Pg 2 provided. Initialled, dated, timed, and placed in chart.
--- NOTE | 2021-02-20 14:04 | PC.NURSE ---
IS Performed IS 7 times; best volume amount achieved was 750.
--- NOTE | 2021-02-20 14:28 | PC.NURSE ---
IS Performed a total of 10 times, best volume reached 750 three times. All other attempts reached a volume of at least 500.
--- NOTE | 2021-02-20 14:50 | PC.NURSE ---
Nasal Cannula Following pain medication given IV, Patient noted to be drowsy with an oxygen saturation of 88%. Patient's head elevated, nasal cannula started at 1 liter, IS performed. Patient oxygen saturation 93-94%.
--- NOTE | 2021-02-20 15:01 | PM.PN ---
Subjective Subjective: Interval history: Patient examined in the ICU, Still endorsing pain 7/10 however she is satisfied with the current opioid regimen Afebrile, Hemoglobin stable at 9.8 Leukocytosis secondary to steroid use Potassium 3.2 repleted Hyper natremia corrected 141 D5 fluids discontinued today Patient has started ambulation Diet advanced to cardiac Tolerating her medications 1 bowel movement today Mediastinal drain 105 mL Pleural drain 130 mL, dark red Sputum culture from 02/17 growing group G Streptococcus sensitive to ampicillin, Augmentin should be adequate Vitals/I&O/Wt Last Vital Signs Temp 98.4 F 02/20/21 13:00 Pulse 85 02/20/21 14:30 Resp 23 H 02/20/21 14:37 BP 117/64 02/20/21 14:30 Pulse Ox 94 02/20/21 14:37 02/20/21 02/20/21 02/20/21 06:59 14:59 22:59 Intake Total 810 / 810 Output Total 660 / 1870 1115 / 1115 Balance -660 / -85 -305 / -305 Weight last 48 hrs Weight 105.279 kg Weight 110.308 kg Physical Exam Narrative: EXAM NARRATIVE: Patient sitting in a chair doing well on room air Foot pump right leg, SCDs left leg S1, S2 sinus rhythm Bilateral clear breath sounds no adventitious rhonchi or crackles noted EOMI, PERRLA No neurological deficit Abdomen soft no abdominal pain Vein graft site no active cellulitis or active bleeding Pleural and mediastinal drain with dark red drainage Chest tube without any leakage Urinary Catheter Management^: Young: Cath Placed During This Visit: yes Reason for Continuing Indwelling Catheter: Accurate Measurement of Urinary Output in Critically Ill Patients Urinary Catheter Date of Insertion: 02/17/21 Urinary Catheter Time of Insertion: 07:00 Data : 02/20/21 03:33 02/20/21 03:33 Micro: Microbiology 02/17/21 17:04 Gram Stain - Final Sputum - Endotracheal Tube Aspirate Sputum Culture - Final Group g streptococcus 02/18/21 09:30 Urine Culture - Final Urine Catheterized A&P Assessment and plan (1) Postoperative fever: Status: Acute (2) Postoperative anemia: Status: Acute (3) S/P CABG x 4: Status: Acute (4) Triple vessel disease of the heart: Status: Acute (5) NSTEMI (non-ST elevated myocardial infarction): Status: Acute (6) Depression: Status: Chronic Additional A&P Information Status post CABG x4 CABG x4. Patient got SVG to OM, SVG to PDA and SVG to diagonal artery. She also got a NAVARRO to LAD. Postop day 3 Postoperatively she developed low-grade fever and anemia status post blood transfusion 2 units She has been afebrile, sputum growing strep G, Bactrim to be continued, Her leukocytosis seems secondary to use of hydrocortisone Her diet has been advanced to cardiac today, she also had 1 bowel movement Tolerating aspirin, metoprolol atorvastatin Status post albumin infusion postoperatively Currently saturating well Chest x-ray shows improvement in vascular congestion Pleural and mediastinal drain 130 mL, 105 mL respectively, management as per cardiothoracic Central line removed Patient is able to use bedside commode and ambulate No active chest pain Blood cultures negative Venous graft site shows granulation tissue with signs of healing no active signs of cellulitis, monitor for now Hypernatremia: Improved Dextrose fluids discontinued this morning Hypoxia postoperatively secondary to hypoventilation patient currently saturating well on room air Autonomic dysfunction Continue fludrocortisone 0.1 mg twice a day Hold off on starting maintenance dose of hydrocortisone, her blood pressure is stable Euglycemia, normotensive Has stayed afebrile last 48 hours Advance diet to cardiac today DVT prophylaxis SCDs and foot type on right side Continue ICU management will transfer to [facility] once cleared by cardiothoracic Attestations Medical Necessity Statement*: Critical ICU management Time Spent in Patient Care: 16 - 35 minutes Coding Level of Care Code Acute Transportation Lead for Erwin Fwalvarez Diagnoses Postoperative fever R50.82 Postoperative anemia D64.9 S/P CABG x 4 Z95.1 Triple vessel disease of the heart I25.10 NSTEMI (non-ST elevated myocardial infarction) I21.4 Depression F32.9
--- NOTE | 2021-02-20 16:51 | PC.NURSE ---
IS IS performed 10 times, volume amount reached 500 each time.
--- NOTE | 2021-02-20 17:16 | PC.NURSE ---
Pain level/Morphine Patient stated pain level of 7 on a numeric (1-10) scale. Morphine administered in place of fentanyl to prevent a decrease in oxygen saturation as occurred previously. Inquiry made to patient regarding usual pain level for patient felt at home and appropriate pain goals for treatment. Patient stated that usual pain felt at home is a level of 5-6. Patient agreed that a level of 5 is an appropriate goal for pain management.
[2021-02-20 17:30] LABS: Glucose Point of Care 103 mg/dL (70-110)
[2021-02-20 17:37] LABS: Anion Gap 13.2 (5-19); Blood Urea Nitrogen 11 mg/dL (6-20); Calcium 8.1 mg/dL (8.5-10.5); Carbon Dioxide 24 mmol/L (22-29); Chloride 106 mmol/L (98-107); Glomerular Filtration Rate 131.7 mL/min (90-130); Glucose 99 mg/dL (65-115); Osmolality Calculated 289 mOsm/kg (285-295); Potassium 3.2 mmol/L (3.5-5.1); Sodium 140 mmol/L (136-145)
--- NOTE | 2021-02-20 18:41 | PC.NURSE ---
IS IS performed 10 times, a volume amount of 500 reached each time.
--- NOTE | 2021-02-20 19:04 | PC.NURSE ---
Shift Note Frequent safety and comfort rounds continue. Orders and/or nursing care completed as indicated. Patient monitored for response to intervention and treatment(s). Education provided includes reinforcement regarding incentive spirometer use, reinforcement on activity restrictions, appropriate pain levels for treatment, and potassium levels/supplements. Patient verbalized understanding.
[2021-02-20] MEDS: potassium chloride ER 20 mEq Tablet 40 MEQ PO (20:15)
[2021-02-20] MEDS: atorvastatin 40 mg Tablet PO (20:16)
[2021-02-20] MEDS: escitalopram 10 mg Tablet 20 MG PO (20:16)
[2021-02-20 20:40] LABS: Glucose Point of Care 112 mg/dL (70-110)
[2021-02-20] MEDS: ondansetron 2 mg/ML SDV 2 mL 4 MG IVP (23:49)
[2021-02-21] VITALS (39 sets, daily range): BP systolic 69–124; BP diastolic 52–71; PULSE 76–99; RESP 14–32; TEMP 36.7–37.2; O2SAT 85–96
[2021-02-21] MEDS: morphine 4 mg/mL SDV 1 mL 2 MG IVP ×2 (00:38→07:48)
[2021-02-21 03:31] LABS: Basophils # 0.1 10^3/uL (0.0-0.1); Basophils % 0.5 %; Eosinophils # 0.3 10^3/uL (0.0-0.8); Hematocrit 30.2 % (37.0-47.0); Hemoglobin 9.8 g/dL (11.5-15.3); Lymphocytes # 1.8 10^3/uL (0.8-4.8); Lymphocytes % 16.3 %; Mean Corpuscular HGB Conc 32.5 g/dL (30.0-36.0); Mean Corpuscular Hemoglobin 32.5 pg (28.0-34.0); Mean Platelet Volume 10.5 fL (7.4-10.4); Monocytes # 0.9 10^3/uL (0.2-0.9); Monocytes % 8.1 %; Neutrophils # 7.96 10^3/uL (1.8-7.7); Neutrophils % 71.1 %; Nucleated Red Blood Cells % 0 %; Platelet Count 150 10^3/cmm (130-400); Red Blood Count 3.02 10^6/uL (4.1-5.3); Red Cell Distribution Width 13.8 % (12.1-15.1); White Blood Count 11.2 10^3/uL (4.0-10.0)
[2021-02-21] MEDS: oxyCODONE-APAP 5-325 mg Tablet PO ×2 (03:51→17:44)
--- NOTE | 2021-02-21 04:00 | XRR_ITS ---
PROCEDURE INFORMATION: Exam: XR Chest Exam date and time: 02/21/2021 4:00 AM Age: 50 years old Clinical indication: Device placement; Chest tube TECHNIQUE: Imaging protocol: XR of the chest. Views: 1 view. COMPARISON: CR (CHEST, ) 02/20/2021 5:24 AM FINDINGS: Tubes, catheters and devices: A left chest tube is present in stable position with the tip in the left apex. Lungs: There are diffuse bilateral hazy interstitial infiltrates with patchy consolidation in the right base. Pleural spaces: No pneumothorax or significant pleural effusion seen. Heart/Mediastinum: Heart is not enlarged. The patient has undergone coronary bypass surgery. Bones/joints: Unremarkable. XR/XR chest 1V portable [id number] IMPRESSION: Bilateral pulmonary infiltrates unchanged.
[2021-02-21 04:16] LABS: Anion Gap 9.4 (5-19); Blood Urea Nitrogen 12 mg/dL (6-20); Calcium 7.8 mg/dL (8.5-10.5); Carbon Dioxide 26 mmol/L (22-29); Chloride 109 mmol/L (98-107); Glomerular Filtration Rate 131.7 mL/min (90-130); Glucose 105 mg/dL (65-115); Osmolality Calculated 292 mOsm/kg (285-295); Potassium 3.4 mmol/L (3.5-5.1); Sodium 141 mmol/L (136-145)
[2021-02-21 04:32] LABS: Vitamin B12 280 pg/mL (232-1245)
[2021-02-21 05:05] LABS: Folate Level 2.3 ng/mL (4.8-37.3)
[2021-02-21] MEDS: ondansetron 2 mg/ML SDV 2 mL 4 MG IVP (06:01)
--- NOTE | 2021-02-21 06:05 | PC.NURSE ---
Shift Note Frequent safety and comfort rounds continue. Orders and nursing care completed as indicated. Patient monitored for response to intervention and treatments. Education provided including importance of frequent turning, deep breathing, and SMI use to prevent complications. Removed montemayor catheter this AM and educated patient on calling for assistance when needing to go to the bathroom. Patient verbalizes understanding but still requires supervision to ensure correct usage of SMI. Will continue to monitor.
[2021-02-21 09:09] LABS: Glucose Point of Care 88 mg/dL (70-110)
[2021-02-21] MEDS: folic acid 1 mg Tablet PO (09:23)
[2021-02-21] MEDS: amoxicillin-clav 875-125 mg Tablet 1 TAB PO ×2 (09:23→17:43)
[2021-02-21] MEDS: potassium chloride ER 20 mEq Tablet PO (09:23)
[2021-02-21] MEDS: chlorhexidine gluconate 0.12% Btl 473 mL 15 ML MUCOUS MEM (09:23)
[2021-02-21] MEDS: fludrocortisone 0.1 mg Tablet PO ×2 (09:23→17:43)
[2021-02-21] MEDS: aspirin 81 mg Chew Tablet PO (09:23)
[2021-02-21] MEDS: mupirocin oint 22 gm 1 APPLIC NASAL (09:27)
[2021-02-21] MEDS: metoprolol tartrate 25 mg Tablet 12.5 MG PO ×2 (09:27→21:23)
--- NOTE | 2021-02-21 10:44 | PM.PN ---
Subjective Subjective: Interval history: Postop day #4 status post CABG x4. Ambulating well in ICU with physical therapy. She is in good spirits. Postoperative discomfort appears to be under good control. She is progressing well. Chest tube output has decreased over the past 36 hours at approximate 260 cc past 24 hours. Intake and output is negative just under 2 L the past 24 hours. Chest x-ray continues to reveal some bilateral lower lobe infiltrates. She has been placed on Augmentin by Dr. Shetty. White count has continued to decrease over the past 2 days and is now at 11,000. Hemoglobin is stable. I have personally reviewed the chest x-ray. Vitals/I&O/Wt Last Vital Signs Temp 98.4 F 02/21/21 03:00 Pulse 88 02/21/21 09:30 Resp 26 H 02/21/21 09:30 BP 111/60 02/21/21 09:30 Pulse Ox 89 L 02/21/21 09:30 02/20/21 02/21/21 02/21/21 22:59 06:59 14:59 Intake Total 59 / 869 Output Total 445 / 1560 625 / 2185 Balance -386 / -691 -625 / -1316 Weight last 48 hrs Weight 230 lb 6 oz Weight 232 lb 1.6 oz Physical Exam Chest: OTHER: Chest wall stable. Mediastinal and pleural tubes removed. Pacing wires removed. Incision intact. Wound VAC dressing removed. Incision painted with Betadine and redressed with bordered gauze. Resp: OTHER: Decreased breath sounds in the bases though improved inspiratory effort as compared to 2 days ago Cardio: COMMON NORMALS: regular rate, regular rhythm, No gallops present (Cardio), No murmurs present (Cardio) and No rub (Cardio) RATE: regular rate RHYTHM: regular rhythm Extremity: OTHER: Trace peripheral edema. Upper extremity edema resolved Urinary Catheter Management^: Young: Cath Placed During This Visit: yes, but has since been removed by the nurse Reason for Continuing Indwelling Catheter: Accurate Measurement of Urinary Output in Critically Ill Patients Urinary Catheter Date of Insertion: 02/17/21 Urinary Catheter Time of Insertion: 07:00 Date Urinary Catheter Removed: 02/21/21 Time Urinary Catheter Discontinued: 05:30 Data : 02/21/21 03:23 02/21/21 03:23 Micro: Microbiology 02/17/21 17:04 Gram Stain - Final Sputum - Endotracheal Tube Aspirate Sputum Culture - Final Group g streptococcus 02/18/21 09:30 Urine Culture - Final Urine Catheterized A&P Assessment and plan (1) S/P CABG x 4: POD #4 status post CABG x4. Drains and pacing wires removed. Plan: Will transfer [facility] for continued convalescence and recovery. Discharge planning in progress. I greatly appreciate the expertise and oversight of our hospitalist and cardiology colleagues. Status: Acute Attestations Medical Necessity Statement*: POD #4 status post CABG x4 Time Spent in Patient Care: 16 - 35 minutes Coding Level of Care Code Acute Forklift Supervisor for Chg Fwd Diagnoses S/P CABG x 4 Z95.1
--- NOTE | 2021-02-21 10:59 | PM.PN ---
Subjective Subjective: Interval history: Patient is overall doing well. Today her pain is much better. She is ready to be transferred out of ICU. Her chest tube is out. No more febrile episodes. Vitals/I&O/Wt Last Vital Signs Temp 98.4 F 02/21/21 03:00 Pulse 88 02/21/21 09:30 Resp 26 H 02/21/21 09:30 BP 111/60 02/21/21 09:30 Pulse Ox 89 L 02/21/21 09:30 02/20/21 02/21/21 02/21/21 22:59 06:59 14:59 Intake Total 59 / 869 Output Total 445 / 1560 625 / 2185 Balance -386 / -691 -625 / -1316 Weight last 48 hrs Weight 230 lb 6 oz Weight 232 lb 1.6 oz Physical Exam Narrative: EXAM NARRATIVE: GENERAL: Alert and oriented x3. HEENT: Pupils equal round reactive to light. No pallor or icterus. NECK: No JVD. No carotid bruit. CARDIOVASCULAR SYSTEM: S1-S2 regular. No murmur rubs or gallops. RESPIRATORY SYSTEM: Clear to auscultation without wheezing. ABDOMEN: Soft, nontender and nondistended. Normal bowel sounds present. EXTREMITIES: No cyanosis. No edema. STRATEGY EXECUTION CONSULTANT: Patient is alert oriented ?3. No focal neurological deficits. SKIN: Normal turgor and temperature. PSYCH: Normal insight and judgment. Urinary Catheter Management^: Young: Cath Placed During This Visit: yes, but has since been removed by the nurse Reason for Continuing Indwelling Catheter: Accurate Measurement of Urinary Output in Critically Ill Patients Urinary Catheter Date of Insertion: 02/17/21 Urinary Catheter Time of Insertion: 07:00 Date Urinary Catheter Removed: 02/21/21 Time Urinary Catheter Discontinued: 05:30 Data : 02/21/21 03:23 02/21/21 03:23 Micro: Microbiology 02/17/21 17:04 Gram Stain - Final Sputum - Endotracheal Tube Aspirate Sputum Culture - Final Group g streptococcus 02/18/21 09:30 Urine Culture - Final Urine Catheterized A&P Assessment and plan (1) NSTEMI (non-ST elevated myocardial infarction): Patient had presented with non-ST elevation DE. Coronary angiogram showed severe triple-vessel coronary artery disease including HEAVY EQUIPMENT OPERATOR of RCA, severe proximal left circumflex artery stenosis and severe proximal and mid LAD stenosis. LAD appeared to be culprit vessel for non-ST elevation DE. Patient's LV systolic function was normal both on LV gram and echocardiogram. No significant EKG changes. She was having on and off chest discomfort episodes requiring nitro drip. We consulted CT surgery and patient underwent successful revascularization with CABG x4. Patient got SVG to OM, SVG to PDA and SVG to diagonal artery. She also got a NAVARRO to LAD. She is doing well postop. Had febrile episodes on 02/18. CXR showed possible infiltrates and was started on augmentin. No more febrile episodes. EKG shows normal sinus rhythm. Telemetry does not show any significant arrhythmias. Her chest tube is removed. She is ready to be transferred out of ICU. Recovery as expected. Her chest pain symptoms from her sternotomy have improved today. Continue aspirin and statin. Metoprolol. Antibiotic therapy and steroid therapy per medicine team Status: Acute (2) Dyslipidemia: Status: Chronic (3) Asthma-COPD overlap syndrome: Status: Chronic (4) Sleep apnea: Status: Chronic Qualifiers: Sleep apnea type: unspecified type Qualified Code(s): G47.30 - Sleep apnea, unspecified (5) Smoker: Status: Chronic (6) Postoperative anemia: Received transfusion with PRBC X 2 units Status: Acute (7) Postoperative fever: Started on augmentin Status: Acute Additional A&P Information Family history of CAD History of neurocardiogenic syncope Thank you for involving us in the care of this patient. We will continue to follow. Please call with questions. Attestations Medical Necessity Statement*: Care expected to cross 2 midnights. Coding Level of Care Code Acute Nailing Machine Feeder for [facility] Diagnoses NSTEMI (non-ST elevated myocardial infarction) I21.4 Dyslipidemia E78.5 Asthma-COPD overlap syndrome J44.9 Sleep apnea G47.30 Sleep apnea type: unspecified type Smoker F17.200 Postoperative anemia D64.9 Postoperative fever R50.82
[2021-02-21] MEDS: FUROsemide 20 mg Tablet PO (11:31)
[2021-02-21 12:16] LABS: Glucose Point of Care 115 mg/dL (70-110)
--- NOTE | 2021-02-21 15:38 | PC.NURSE ---
Report called to ROBERT Vargas.
--- NOTE | 2021-02-21 16:25 | PC.NURSE ---
Patient taken to [facility] via wheelchair, all belongings with patient. Patient oriented to the room and call system.
--- NOTE | 2021-02-21 16:40 | PM.PN ---
Subjective Subjective: Interval history: Leukocytosis, patient is afebrile doing well on Augmentin Hemoglobin stable at 9.8 Patient is endorsing that her pain is under control Pacing wires and chest tube removed by Dr. Monson today Patient transferred to medical floor Start discharge planning Today she was started on folic acid secondary to macrocytic anemia Hypokalemia: Repleted Procalcitonin unremarkable Persistent bilateral infiltrates greater right lower lobe Vitals/I&O/Wt Last Vital Signs Temp 98.3 F 02/21/21 15:00 Pulse 83 02/21/21 15:00 Resp 23 H 02/21/21 15:00 BP 118/62 02/21/21 15:00 Pulse Ox 93 02/21/21 15:00 02/21/21 02/21/21 02/21/21 06:59 14:59 22:59 Intake Total 240 / 240 Output Total 625 / 2185 400 / 400 Balance -625 / -1316 -160 / -160 Weight last 48 hrs Weight 104.496 kg Weight 105.279 kg Physical Exam Narrative: EXAM NARRATIVE: S1, S2 sinus rhythm No active chest pain shortness of breath Saturating well on room air Mediastinal drainage 50 cc overnight Lower extremity no edema Right leg graft site without any cellulitis shows good granulation tissue Bilateral breath sounds without adventitious rhonchi or crackles EOMI, PERRLA In good spirits No neurological deficits, patient is able to converse and tell me that she likes to keep an eye what is happening internationally while watching television Urinary Catheter Management^: Young: Cath Placed During This Visit: yes, but has since been removed by the nurse Reason for Continuing Indwelling Catheter: Accurate Measurement of Urinary Output in Critically Ill Patients Urinary Catheter Date of Insertion: 02/17/21 Urinary Catheter Time of Insertion: 07:00 Date Urinary Catheter Removed: 02/21/21 Time Urinary Catheter Discontinued: 05:30 Data : 02/21/21 03:23 02/21/21 03:23 Micro: Microbiology 02/20/21 17:21 MRSA Culture - Final Nose A&P Assessment and plan (1) Postoperative fever: Status: Acute (2) Postoperative anemia: Status: Acute (3) S/P CABG x 4: Status: Acute (4) Triple vessel disease of the heart: Status: Acute (5) NSTEMI (non-ST elevated myocardial infarction): Status: Acute (6) Hypokalemia: Status: Acute (7) Macrocytic anemia: Status: Acute Additional A&P Information Status post CABG postop day 4 Chest tube, drains, pacing wires removed by Dr. Monson patient to transfer to medical floor No active chest pain or shortness of breath Bilateral infiltrates right greater than left patient is doing well on Augmentin for possible aspiration pneumonia Cultures positive for strep G strep Blood cultures unremarkable Postoperative anemia status post blood transfusion, albumin was infused as well,hemo globin stable Patient hemodynamically stable There was some concern during surgery regarding PA introducer and right atrial injury however patient has not shown any arrhythmias, hemoglobin is stable after blood transfusion no recurrence of chest pain or shortness of breath Continue aspirin, metoprolol and atorvastatin Hypernatremia: Improved Hypokalemia: Potassium repleted Magnesium normal Hypoxia: Improved currently doing well on room air Autonomic dysfunction: Continue fludrocortisone no need of stress dose steroids Euglycemic Cardiac diet DVT prophylaxis SCDs Discharge planning Attestations Medical Necessity Statement*: Transfer to medical floor transfer to medical floor Time Spent in Patient Care: 16 - 35 minutes Coding Level of Care Code Acute Supervisor Beet End for [facility] Fwd Diagnoses Postoperative fever R50.82 Postoperative anemia D64.9 S/P CABG x 4 Z95.1 Triple vessel disease of the heart I25.10 NSTEMI (non-ST elevated myocardial infarction) I21.4 Hypokalemia E87.6 Macrocytic anemia D53.9
[2021-02-21 17:33] LABS: Glucose Point of Care 99 mg/dL (70-110)
--- NOTE | 2021-02-21 19:47 | PC.NURSE ---
ROUNDING/ASSESSMENT Resting in bed with at bedside..Very pleasant and knowledegable about care. c/o some shoulder pain and tenderness/soreness in medial chest. Says was more active today. Had pain med recently. [place] dressing to medial chest C&D. Bra in place. Has edema to BLE with R>L. Friedens sites to right ankle, lat knee and groin all C&D with dermabond closure. Bruising to inner leg. Telemetry showing SR. Says appetite has been less than usual with food tasting off . Reports some slight SOB with exertion and occ dry cough. O2 at 2l per NC available for prn use. Enc use of IS at bedside. Says is urinating well since Hector Bradshaw'alvarez today. Is ambulating to bathroom. Did talk about and review sternal precautions
[2021-02-21] MEDS: atorvastatin 40 mg Tablet PO (21:23)
[2021-02-21] MEDS: escitalopram 10 mg Tablet 20 MG PO (21:23)
[2021-02-21 21:40] LABS: Glucose Point of Care 112 mg/dL (70-110)
[2021-02-22] VITALS (10 sets, daily range): BP systolic 102–111; BP diastolic 64–70; PULSE 73–89; RESP 16–18; TEMP 36.7–37.1; O2SAT 85–95
[2021-02-22] MEDS: oxyCODONE-APAP 5-325 mg Tablet PO (00:40)
--- NOTE | 2021-02-22 05:51 | PC.NURSE ---
SHIFT SUMMARY Has had a good night. Says she just dozes off and on. Medicated X1 with po Oxycodone for c/o shoulder and generalized pain. Says she has fibromyalgia so has alot of discomfort from this. Has denied any chest pain. Dressing to medial chest remains C&D. Support bra in place. Ambulates to bathroom well. Uses heart pillow to splint chest when getting up & down and coughing. Wore O2 at 2l during night. RT had obtained a low sat reading of 85 and O2 was placed. Sat 94-95% with O2 on. Enc deep breathing and use of IS. Continues with pitting edema to BLE with R>L, No changes to harvest sites X3 R leg. VS WNL and property assessment monitor showing SR.
--- NOTE | 2021-02-22 06:00 | XRR_ITS ---
PROCEDURE INFORMATION: Exam: XR Chest Exam date and time: 02/22/2021 6:00 AM Age: 50 years old Clinical indication: Device placement; Chest tube TECHNIQUE: Imaging protocol: XR of the chest. Views: 1 view. COMPARISON: CR (CHEST, ) 02/21/2021 6:17 AM FINDINGS: Lungs: There is bilateral hazy interstitial pulmonary infiltration. Basilar consolidation on the right side has improved. Pleural spaces: There is a very tiny left apical pneumothorax. There is slight blunting of left costophrenic angle consistent with minimal effusion. Heart/Mediastinum: Patient has undergone coronary bypass surgery. The cardiac silhouette is enlarged but unchanged. Bones/joints: Unremarkable. XR/XR chest 1V portable [id number] IMPRESSION: 1. There is a very tiny left apical pneumothorax. The left chest tube has been removed. 2. Bilateral hazy interstitial infiltrate may be due to mild interstitial edema. 3. Chest has improved since previous study with clearing of most of the consolidation in the right base and improved interstitial edema.
[2021-02-22 06:32] LABS: Basophils % 0.4 %; Eosinophils # 0.3 10^3/uL (0.0-0.8); Eosinophils % 3.5 %; Hematocrit 27.9 % (37.0-47.0); Hemoglobin 8.9 g/dL (11.5-15.3); Lymphocytes # 1.6 10^3/uL (0.8-4.8); Lymphocytes % 20.1 %; Mean Corpuscular HGB Conc 31.9 g/dL (30.0-36.0); Mean Corpuscular Hemoglobin 32.4 pg (28.0-34.0); Mean Corpuscular Volume 101.5 fl (81-99); Mean Platelet Volume 10.6 fL (7.4-10.4); Monocytes # 0.9 10^3/uL (0.2-0.9); Monocytes % 11.5 %; Neutrophils # 5.01 10^3/uL (1.8-7.7); Neutrophils % 63.2 %; Nucleated Red Blood Cells % 0 %; Platelet Count 159 10^3/cmm (130-400); Red Blood Count 2.75 10^6/uL (4.1-5.3); Red Cell Distribution Width 13.9 % (12.1-15.1); White Blood Count 7.9 10^3/uL (4.0-10.0)
[2021-02-22 06:44] LABS: Glucose Point of Care 99 mg/dL (70-110)
[2021-02-22 07:00] LABS: Anion Gap 10.3 (5-19); Blood Urea Nitrogen 7 mg/dL (6-20); Carbon Dioxide 26 mmol/L (22-29); Chloride 105 mmol/L (98-107); Creatinine Clr Calc Pharmacy 167.9354; Glomerular Filtration Rate 131.7 mL/min (90-130); Glucose 86 mg/dL (65-115); Osmolality Calculated 283 mOsm/kg (285-295); Potassium 3.3 mmol/L (3.5-5.1); Sodium 138 mmol/L (136-145)
--- NOTE | 2021-02-22 07:28 | PM.PN ---
Subjective Subjective: Interval history: Postop day #5 status post CABG x4. Transferred to [facility] yesterday. No complaints this morning. Postop discomfort appears to be under good control. She can pull 750 on incentive spirometry and has an effective cough. Sports bra is in position with good soft tissue support. Does complain of some paresthesia along the ulnar distribution of the left hand. I suspect this is related to chest wall distraction during harvesting of the NAVARRO. No motor deficit. No left upper extremity swelling suggestive of venous thrombosis. Vitals/I&O/Wt Last Vital Signs Temp 98.1 F 02/22/21 07:19 Pulse 74 02/22/21 07:19 Resp 18 02/22/21 07:19 BP 111/70 02/22/21 07:19 Pulse Ox 95 02/22/21 07:19 02/21/21 02/22/21 02/22/21 22:59 06:59 14:59 Intake Total 360 / 600 Output Total 700 / 1100 200 / 1300 Balance -700 / -860 160 / -700 Weight last 48 hrs Weight 230 lb Weight 230 lb 6 oz Physical Exam Resp: COMMON NORMALS: normal respiratory effort and clear to auscultation bilaterally (Still just basilar crackles) AUSCULTATION: clear to auscultation bilaterally (Still just basilar crackles) and crackles Cardio: COMMON NORMALS: regular rate, regular rhythm and S1 normal heart sound present RATE: regular rate RHYTHM: regular rhythm HEART SOUNDS: S1 normal heart sound present Extremity: COMMON NORMALS: no clubbing, cyanosis or edema Urinary Catheter Management^: Young: Cath Placed During This Visit: yes, but has since been removed by the nurse Reason for Continuing Indwelling Catheter: Accurate Measurement of Urinary Output in Critically Ill Patients Urinary Catheter Date of Insertion: 02/17/21 Urinary Catheter Time of Insertion: 07:00 Date Urinary Catheter Removed: 02/21/21 Time Urinary Catheter Discontinued: 05:30 Data : 02/22/21 05:06 02/22/21 05:06 Micro: Microbiology 02/20/21 17:21 MRSA Culture - Final Nose A&P Assessment and plan (1) S/P CABG x 4: Postop day #5 status post CABG x4 Plan: Chlorhexidine shower today. Continue increasing activity under the direction and guidance of physical therapy. Discharge planning continuing. Appreciate medical management of our hospitalist and cardiology colleagues. Status: Acute Attestations Medical Necessity Statement*: Postop day #5 status post CABG x4 Time Spent in Patient Care: 16 - 35 minutes Coding Level of Care Code Acute Data Security Administrator for Chg Fwd Diagnoses S/P CABG x 4 Z95.1
[2021-02-22] MEDS: amoxicillin-clav 875-125 mg Tablet 1 TAB PO (07:33)
[2021-02-22] MEDS: metoprolol tartrate 25 mg Tablet 12.5 MG PO (07:34)
[2021-02-22] MEDS: sennosides-docusate Tablet 1 TAB PO (07:34)
[2021-02-22] MEDS: aspirin 81 mg Chew Tablet PO (07:34)
[2021-02-22] MEDS: fludrocortisone 0.1 mg Tablet PO (07:34)
[2021-02-22] MEDS: potassium chloride ER 20 mEq Tablet 40 MEQ PO (07:34)
[2021-02-22] MEDS: folic acid 1 mg Tablet PO (07:34)
[2021-02-22] MEDS: chlorhexidine gluconate 4% Btl 118 mL 1 APPLIC TOPICAL (07:42)
--- NOTE | 2021-02-22 10:24 | USCV_ITS ---
Qian Yulisa Age: 50 Gender: F : 1970 Exam Date: 02/22/2021 11:04 Ordering Phys: Adair Shetty MD Technologist: KRYSTIN Exam Location: [facility] [place] Indication: SWELLING OF LEGS POST CABG HISTORY: Post CABG with leg swelling PROCEDURES: The venous duplex Doppler examination of both lower extremities was performed in the standard fashion. The following venous structures were evaluated: common femoral vein, profunda vein, proximal portion of the greater saphenous vein, superficial femoral vein, and the popliteal vein. In addition, the posterior tibial and peroneal trunk were evaluated. Serial compression, augmentation maneuvers, and spectral Doppler flow evaluation were performed. FINDINGS: Normal 2-D Doppler and augmentation and compressibility throughout the lower extremity venous structures. Additional imaging through the proximal calf veins also reveals no thrombus. Limited evaluation of the greater saphenous vein is patent with no thrombus. CONCLUSIONS No DVT bilateral lower extremities. Dr. Aleksandra Roy DO (Electronically Signed) Final Date: 22 February 2021 15:42 S
--- NOTE | 2021-02-22 11:22 | PC.SOCIAL ---
IMM Update Pg. 2 of IMM updated and explained to patient who verbalized understanding. Copy provided.
[2021-02-22 11:30] LABS: Glucose Point of Care 134 mg/dL (70-110)
--- NOTE | 2021-02-22 15:22 | P.DS_ITS ---
Discharge Providers Date of Admission: 02/15/21 02:40 Date of Discharge: February 22, 2021 Attending Provider at Admission: Salile Josue MD Attending Provider at Discharge: Adair Shetty MD Diagnoses at Discharge Discharge Diagnosis (1) S/P CABG x 4: Status: Acute Reason for Visit Reason for Visit: Chest Pains Hospital Course Hospital Course HPI done by Dr. Josue Yulisa Laughlin is a 50 year old female who presented to the emergency room with chief complaint of chest pain. She was out walking her dog when she had sudden onset of substernal chest pain that radiated into her back and up into her jaw, into her shoulders. It was associated with some palpitations but not really short of breath, no significant nausea or vomiting, no diaphoresis. She has never had anything like this before. She does have some chronic pain issues but this is different than anything she is experienced before. In the emergency room, twelve-lead EKG showed nonspecific changes. 2-hour troponin delta was 25. She received some aspirin, nitroglycerin, Lovenox and pain medications. She is currently chest pain-free. She does have risk factors including hyperlipidemia, history of neurocardiogenic syncope. Also has a strong family history of coronary artery disease and continues to smoke. She is being admitted for further evaluation and treatment. Hospital course Patient was admitted for management of NSTEMI, because of persistent chest pain, she went for coronary angiogram which revealed triple-vessel disease, Dr. Marte consulted Dr. Monson to plan expedited CABG because of her persistent chest discomfort. 02/17 CABG was done. patient underwent successful revascularization with CABG x4. Patient got SVG to OM, SVG to PDA and SVG to diagonal artery. She also got a NAVARRO to LAD. Postoperative period was notable for anemia, she required albumin and 2 units of PRBC, she also developed postoperative fever low-grade for which blood cultures, urine culture analysis and chest x-ray were obtained. She was started on antibiotics with concern for aspiration pneumonia, which were deescalated to Augmentin with improvement in her clinical progress. Pleural: Mediastinal drain and pacing wires were removed by Dr. Monson on 02/21, she was transferred to medical floor on 02/21. She did well was able to take shower, her wounds were showing signs of healing without any signs of infection. She is being discharged on 02/22 with home health services. manager video games updated us regarding the narrow window of getting her approved for home health services on Monday. Dr. Monson agreed with the discharge to avoid extended hospital stay because of lack of availability of home health services in next few days. She will be discharged on aspirin, atorvastatin, metoprolol, opioids, Augmentin, home health services, Hemoglobin at the time of discharge 9 White count 7.9 Potassium was repleted potassium 3.3(she received Lasix for her fluid overloaded state post operatively, chest x-ray showed improvement in pulmonary edema) No signs of DVT on venous Doppler Her sputum cultures came back positive for group G strep MRSA nares negative She was given close follow-up appointment with Dr. eLung Physical Exam Narrative: EXAM NARRATIVE: S1, S2 sinus rhythm No active chest pain shortness of breath Saturating well on room air Mediastinal drainage 50 cc overnight Lower extremity 1+edema Right leg graft site without any cellulitis shows good granulation tissue Bilateral breath sounds without adventitious rhonchi or crackles EOMI, PERRLA In good spirits No neurological deficits, Urinary Catheter Management^: Young: Cath Placed During This Visit: yes, but has since been removed by the nurse Reason for Continuing Indwelling Catheter: Accurate Measurement of Urinary Output in Critically Ill Patients Urinary Catheter Date of Insertion: 02/17/21 Urinary Catheter Time of Insertion: 07:00 Date Urinary Catheter Removed: 02/21/21 Time Urinary Catheter Discontinued: 05:30 Discharge Data Data Completed and Pending: Completed Studies During Hospitalization Category Date Time Status CXRP [XR chest 1V portable [id number]] R outine Exams 02/15/21 10:44 Completed XR chest 1V tre ble [id number] AM LABS Exams 02/21/21 04:00 Completed XR chest 1V tre ble [id number] AM LABS Exams 02/22/21 06:00 Completed XR chest 1V tre ble [id number] Routine Exams 02/17/21 14:53 Completed XR chest 1V tre ble [id number] Routine Exams 02/18/21 06:00 Completed XR chest 1V tre ble [id number] Routine Exams 02/19/21 06:00 Completed XR chest 1V tre ble [id number] Routine Exams 02/20/21 06:00 [place] [id number] Routi ne Ultrasound 02/16/21 08:50 Completed CV. echo complete * [id number] Routine Ultrasound 02/15/21 06:45 Completed Pending at discharge Category Date Time Status MECHANICAL TECHNICAL SERVICE SPECIALIST request for service Routin e Exams 02/15/21 11:26 Taken Blood Culture Sta t Lab 02/18/21 08:21 [place] [id number] Stat Ultrasound 02/22/21 10:24 Taken Labs from last 24 hours 02/22/21 02/22/21 02/22/21 11:03 06:25 05:06 WBC RBC Hgb Hct MCV MCH MCHC RDW Plt Count MPV Neut % (Auto) Lymph % (Auto) [place] % (Auto) Eos % (Auto) Baso % (Auto) Neut # (Auto) Lymph # (Auto) [place] # (Auto) Eos # (Auto) Baso # (Auto) Nucleated RBC % (a uto) Nucleated RBCs # Sodium 138 Potassium 3.3 L Chloride 105 Carbon Dioxide 26 Anion Gap 10.3 BUN 7 Creatinine 0.5 GFR Calculation 131.7 H Glucose 86 POC Glucose 134 H 99 Calculated Osmolal ity 283 L Calcium 8.0 L 02/22/21 02/21/21 02/21/21 05:06 21:17 17:30 WBC 7.9 RBC 2.75 L Hgb 8.9 L Hct 27.9 L MCV 101.5 H MCH 32.4 MCHC 31.9 RDW 13.9 Plt Count 159 MPV 10.6 H Neut % (Auto) 63.2 Lymph % (Auto) 20.1 [place] % (Auto) 11.5 Eos % (Auto) 3.5 Baso % (Auto) 0.4 Neut # (Auto) 5.01 Lymph # (Auto) 1.6 [place] # (Auto) 0.9 Eos # (Auto) 0.3 Baso # (Auto) 0.0 Nucleated RBC % (a uto) 0 Nucleated RBCs # 0.0 Sodium Potassium Chloride Carbon Dioxide Anion Gap BUN Creatinine GFR Calculation Glucose POC Glucose 112 H 99 Calculated Osmolal ity Calcium Vitals: Last Vital Signs Temp 98.8 F 02/22/21 12:00 Pulse 89 02/22/21 14:35 Resp 18 02/22/21 14:30 BP 102/64 02/22/21 12:00 Pulse Ox 92 02/22/21 14:30 Discharge Plan Discharge Patient Disposition: Home Health Service Condition: Stable Prescriptions: New atorvastatin 40 mg Tablet 40 mg PO BEDTIME 30 Days Qty: 30 RF: 11 Stool Softener-Laxative 8.6-50 mg Tablet 1 tab PO DAILY 30 Days Qty: 30 RF: 2 oxycodone-acetaminophen 5-325 mg Tablet 1 - 2 tab PO Q6H PRN (Reason: Mild To Moderate Pain) 20 Days Qty: 20 RF: 0 Children's Aspirin 81 mg Tablet,Chewable 81 mg PO DAILY 30 Days Qty: 30 RF: 11 folic acid 1 mg Tablet 1 mg PO DAILY 30 Days Qty: 30 RF: 3 amoxicillin-pot clavulanate 875-125 mg Tablet 1 tab PO BID 14 Days Qty: 28 RF: 0 Toprol XL 25 mg tablet extended release 24 hr 50 mg PO DAILY 30 Days Qty: 30 RF: 2 lisinopril 5 mg tablet 5 mg PO DAILY 30 Days Qty: 30 RF: 2 Lasix 20 mg tablet 10 mg PO DAILY PRN (Reason: weight gain) 30 Days Qty: 30 RF: 0 potassium chloride 10 mEq capsule, extended release 10 meq PO PRN Qty: 20 RF: 0 Continued albuterol sulfate 90 mcg/actuation HFA aerosol inhaler 2 puff inhalation Q6H PRN (Reason: shortness of breath or wheezing) Qty: 8.5 RF: 3 Humira 40 mg/0.8 mL syringe kit 40 mg SUBCUT Q14D RF: 0 gabapentin 800 mg tablet 800 mg PO QID Qty: 120 RF: 1 cetirizine [Zyrtec] 10 mg Tablet 10 mg PO DAILY RF: 0 escitalopram oxalate [Lexapro] 20 mg Tablet 20 mg PO BEDTIME RF: 0 ascorbic acid (vitamin C) [Vitamin C] 500 mg Capsule, Extended Release 500 mg PO DAILY RF: 0 epinephrine [EpiPen] 0.3 mg/0.3 mL Auto-Injector 0.3 mg IM Q10M PRN (Reason: Allergic Reaction) Qty: 0 RF: 0 cholecalciferol (vitamin D3) [Vitamin D3] 2,000 unit Tablet 2,000 unit PO DAILY RF: 0 cyanocobalamin (vitamin B-12) [Vitamin B-12] 1,000 mcg Tablet 1,000 mcg PO DAILY RF: 0 tizanidine 4 mg tablet 4 mg PO BID RF: 0 atorvastatin 40 mg tablet 40 mg PO BEDTIME RF: 0 fludrocortisone 0.1 mg tablet 0.1 mg PO BID RF: 0 topiramate 100 mg tablet 100 mg PO BID RF: 0 Discontinued naproxen 500 mg tablet,delayed release (DR/EC) 500 mg PO BID PRN (Reason: Pain) RF: 0 Discharge Orders: Discharge Order (Routine); Ordered 02/22/21 Ordered By: Adair Shetty Referrals: Mathew Marte M.D [Physician] - 02/25/21 2:00 pm Art Monson MD [Physician] - 1 week ([facility] WILL CALL WITH APPOINTMENT WITH DR MONSON [phone]) Discharge Diet: Cardiac Discharge Activity: Resume usual activity and Increase activity as tolerated Patient Instructions: Metoprolol (By mouth), Lisinopril (By mouth), Furosemide (By mouth), Potassium Chloride (By mouth), Aspirin (By mouth), Amoxicillin/Clavulanate Potassium (By mouth), Folic Acid (By mouth), Laxative, Stool Softeners (By mouth), Oxycodone, Rapid Release (By mouth), Atorvastatin (By mouth), Coronary Artery Bypass Graft (DC), Left Heart Catheterization (DC), Right Heart Catheterization (DC), Opioid Safety Discharge Attestations Time Spent in Discharge Care*: less than 30 min Quality Metrics Clinical Quality Measures During this hospital stay, did patient experience: None Coding Level of Care Code Acute Chg FW DC note Diagnoses S/P CABG x 4 Z95.1
--- NOTE | 2021-02-22 20:47 | PM.PN ---
Subjective Subjective: Interval history: Patient is doing well. Denies chest pain. Vitals/I&O/Wt Last Vital Signs Temp 98.8 F 02/22/21 12:00 Pulse 89 02/22/21 16:15 Resp 18 02/22/21 14:30 BP 102/64 02/22/21 12:00 Pulse Ox 92 02/22/21 14:30 02/22/21 02/22/21 02/22/21 06:59 14:59 22:59 Intake Total 360 / 600 720 / 720 Output Total 200 / 1300 Balance 160 / -700 720 / 720 Weight last 48 hrs Weight 230 lb Weight 230 lb 6 oz Physical Exam Narrative: EXAM NARRATIVE: GENERAL: Alert and oriented x3. HEENT: Pupils equal round reactive to light. No pallor or icterus. NECK: No JVD. No carotid bruit. CARDIOVASCULAR SYSTEM: S1-S2 regular. No murmur rubs or gallops. RESPIRATORY SYSTEM: Clear to auscultation without wheezing. ABDOMEN: Soft, nontender and nondistended. Normal bowel sounds present. EXTREMITIES: No cyanosis. No edema. MANAGER CLINICAL APPLICATIONS: Patient is alert oriented ?3. No focal neurological deficits. SKIN: Normal turgor and temperature. PSYCH: Normal insight and judgment. Urinary Catheter Management^: Young: Cath Placed During This Visit: yes, but has since been removed by the nurse Reason for Continuing Indwelling Catheter: Accurate Measurement of Urinary Output in Critically Ill Patients Urinary Catheter Date of Insertion: 02/17/21 Urinary Catheter Time of Insertion: 07:00 Date Urinary Catheter Removed: 02/21/21 Time Urinary Catheter Discontinued: 05:30 Data : 02/22/21 05:06 02/22/21 05:06 A&P Assessment and plan (1) NSTEMI (non-ST elevated myocardial infarction): Patient had presented with non-ST elevation ID. Coronary angiogram showed severe triple-vessel coronary artery disease including BULK FLUIDS HANDLER of RCA, severe proximal left circumflex artery stenosis and severe proximal and mid LAD stenosis. LAD appeared to be culprit vessel for non-ST elevation ID. Patient's LV systolic function was normal both on LV gram and echocardiogram. No significant EKG changes. She was having on and off chest discomfort episodes requiring nitro drip. We consulted CT surgery and patient underwent successful revascularization with CABG x4. Patient got SVG to OM, SVG to PDA and SVG to diagonal artery. She also got a NAVARRO to LAD. She is doing well postop. Had febrile episodes on 02/18. CXR showed possible infiltrates and was started on augmentin. No more febrile episodes. EKG shows normal sinus rhythm. Telemetry does not show any significant arrhythmias. Her chest tube was removed. Recovery as expected. Denies chest pain symptoms at sternotomy site Continue aspirin and statin. Metoprolol. Antibiotic therapy and steroid therapy per medicine team (2) Dyslipidemia: (3) Asthma-COPD overlap syndrome: (4) Sleep apnea: Qualifiers: Sleep apnea type: unspecified type Qualified Code(s): G47.30 - Sleep apnea, unspecified (5) Smoker: (6) Postoperative anemia: Received transfusion with PRBC X 2 units Status: Resolved (7) Postoperative fever: Started on augmentin Status: Resolved Additional A&P Information Family history of CAD History of neurocardiogenic syncope Thank you for involving us in the care of this patient. Patient is ready to be discharged from cardiology standpoint. Please call with questions Attestations Medical Necessity Statement*: Care expected to cross 2 midnights. Coding Level of Care Code Acute Ginseng Farmer for g Fwd Diagnoses NSTEMI (non-ST elevated myocardial infarction) I21.4 Dyslipidemia E78.5 Asthma-COPD overlap syndrome J44.9 Sleep apnea G47.30 Sleep apnea type: unspecified type Smoker F17.200 Postoperative anemia D64.9 Postoperative fever R50.82
--- NOTE | 2021-02-23 16:06 | PC.SOCIAL ---
[facility] closed due to no pharmacist to staff. Josiane JONES CM will call in all medications to [facility] pharmacy and this nurse has asked Dr Vergara to send narcotic electronically to [facility] pharmacy. Dr Shetty is not working today. Left message with [facility] to discard the meds sent to them.
--- NOTE | 2021-02-23 16:09 | PC.SOCIAL ---
Rico from calls and reports that [facility] pharmacy is closed and did not fill the medications. Call placed to [facility] and they do not have a pharmacist on staff and pharmacy is closed. Medications called in verbally to [facility] except narcotic and Dr. Vergara made aware to send narcotic to pharmacy. ROBERT Escalante has called [facility] pharmacy and left message to cancel prescriptions.
--- NOTE | 2021-02-24 11:45 | PC.SOCIAL ---
discharge follow up call made. patients home health nurse saw her yesterday and is coming again today because patient has had a fever and swelling. patient is taking medications as prescribed. Has follow up appointments made with Dr. Monson and Dr. Marte.
== END 2021-02-22 15:30 | disposition home health service (06) | DRG 233 ==
LOC: ER 02-15 03:54 → CSU 02-15 04:13 → ICU 02-16 19:28 → MEDSURG 02-21 16:10
PROVIDERS: Internal Medicine; Internal Medicine Cardiovascular Disease; Thoracic Surgery (Cardiothoracic Vascular Surgery); Admitting Provider Hospitalist; Emergency Provider Emergency Medicine; Visit Provider Internal Medicine
PROC: 4A023N7 Measurement of Cardiac Sampling and Pressure, Left Heart, Percutaneous Approach (ICD-10-PCS; principal; 2021-02-15 16:30)
PROC: 0210099 Bypass Coronary Artery, One Artery from Left Internal Mammary with Autologous Venous Tissue, Open Approach (ICD-10-PCS; principal; 2021-02-17 07:00)
DX: I21.4 Non-ST elevation (NSTEMI) myocardial infarction (principal); J69.0 Pneumonitis due to inhalation of food and vomit; E87.0 Hyperosmolality and hypernatremia; E78.5 Hyperlipidemia, unspecified; L40.9 Psoriasis, unspecified; J44.9 Chronic obstructive pulmonary disease, unspecified; R55 Syncope and collapse; G89.29 Other chronic pain; M79.7 Fibromyalgia; G47.30 Sleep apnea, unspecified; F17.200 Nicotine dependence, unspecified, uncomplicated; M47.816 Spondylosis without myelopathy or radiculopathy, lumbar region; G43.011 Migraine without aura, intractable, with status migrainosus; E87.6 Hypokalemia; R09.02 Hypoxemia; R50.82 Postprocedural fever; I25.10 Atherosclerotic heart disease of native coronary artery without angina pectoris; D64.9 Anemia, unspecified; Z86.711 Personal history of pulmonary embolism; Z82.49 Family history of ischemic heart disease and other diseases of the circulatory system; Z86.59 Personal history of other mental and behavioral disorders; Z20.822 Contact with and (suspected) exposure to COVID-19; Z90.49 Acquired absence of other specified parts of digestive tract; Z90.710 Acquired absence of both cervix and uterus; Z80.3 Family history of malignant neoplasm of breast; Z79.82 Long term (current) use of aspirin; Z88.8 Allergy status to other drugs, medicaments and biological substances; Z91.013 Allergy to seafood
CPT/HCPCS: 36415; 36416; 36430; 36592; 36600; 71045; 80048; 80051; 80053; 80061; 81001; 82330; 82607; 82746; 82803; 82805; 82947; 82962; 83036; 83605; 83735; 83880; 84145; 84439; 84443; 84484; 85025; 85347; 85378; 85610; 85730; 86850; 86900; 86920; 86927; 87040; 87070; 87086; 87205; 87426; 87641; 93005; 93306; 93452; 93970; 94002; 94003; 94640; 94799; 96365; 96372; 96374; 96375; 97110; 97116; 97162; 97166; 97530; 97535; 99285; A4570; C1769; C1887; C1894; C9113; J0171; J0360; J0610; J0697; J1200; J1250; J1644; J1650; J1720; J1815; J1940; J2001; J2150; J2250; J2270; J2370; J2405; J2440; J2704; J2720; J2920; J2930; J3010; J3370; J3475; J3480; J3490; J7030; J7040; J7050; J7799; P9016; P9017; P9041; P9047; Q9967

== ENCOUNTER → 2021-03-05 10:41 | Outpatient (BNVA) | payer BC, SELFPAY | PROVIDERS: PCP Physician Assistant; Visit Provider Internal Medicine Cardiovascular Disease | DX: I50.9 Heart failure, unspecified (principal) | CPT/HCPCS: 80048; 83735; 83880 ==

== ENCOUNTER → 2021-03-17 16:29 | Outpatient (BNVA) | payer BC, SELFPAY | PROVIDERS: PCP Physician Assistant; Visit Provider Internal Medicine Cardiovascular Disease | DX: E78.2 Mixed hyperlipidemia (principal); I25.10 Atherosclerotic heart disease of native coronary artery without angina pectoris; J81.1 Chronic pulmonary edema | CPT/HCPCS: 80048; 83735; 83880 ==

== ENCOUNTER → 2021-03-22 16:03 | Outpatient (BNVA) | payer BC, SELFPAY | PROVIDERS: PCP Physician Assistant; Visit Provider Nurse Practitioner Family | DX: I25.10 Atherosclerotic heart disease of native coronary artery without angina pectoris (principal) | CPT/HCPCS: 80048 ==

== ENCOUNTER → 2021-03-30 15:12 | Outpatient (BNVA) | payer BC, SELFPAY | PROVIDERS: PCP Physician Assistant; Visit Provider Internal Medicine Cardiovascular Disease | DX: M79.89 Other specified soft tissue disorders (principal); I50.33 Acute on chronic diastolic (congestive) heart failure; I25.10 Atherosclerotic heart disease of native coronary artery without angina pectoris; Z95.1 Presence of aortocoronary bypass graft; E78.2 Mixed hyperlipidemia; G47.30 Sleep apnea, unspecified; R55 Syncope and collapse | CPT/HCPCS: 80048; 83735; 83880 ==

== ENCOUNTER 2021-04-15 15:28 | Outpatient (RCR) | payer BC, SELFPAY | END 2021-04-25 23:59 | disposition home or self-care (01) | LOC: SOT 15:28 | PROVIDERS: PCP Physician Assistant; Referring Provider Thoracic Surgery (Cardiothoracic Vascular Surgery); Visit Provider Thoracic Surgery (Cardiothoracic Vascular Surgery) | DX: M79.602 Pain in left arm (principal) | CPT/HCPCS: 97165 ==

== ENCOUNTER 2021-04-26 06:00 | Outpatient (RCR) | payer BC, SELFPAY | END 2021-05-25 23:59 | disposition home or self-care (01) | LOC: SOT 06:00 | PROVIDERS: PCP Physician Assistant; Referring Provider Thoracic Surgery (Cardiothoracic Vascular Surgery); Visit Provider Thoracic Surgery (Cardiothoracic Vascular Surgery) | DX: M79.602 Pain in left arm (principal) | CPT/HCPCS: 97022; 97034; 97035; 97110; 97112; 97140; 97168 ==

== ENCOUNTER → 2021-04-29 14:02 | Outpatient (BNVA) | payer BC, SELFPAY | PROVIDERS: PCP Physician Assistant; Visit Provider Specialist | DX: G43.711 Chronic migraine without aura, intractable, with status migrainosus (principal); Z87.891 Personal history of nicotine dependence | CPT/HCPCS: 64615; J0585 ==

== ENCOUNTER 2021-05-12 13:14 | Outpatient (RCR) | payer BC, SELFPAY | END 2021-05-25 23:59 | disposition home or self-care (01) | LOC: CR 13:14 | PROVIDERS: Family Provider Physician Assistant; PCP Physician Assistant; Referring Provider Internal Medicine Cardiovascular Disease; Visit Provider Internal Medicine Cardiovascular Disease | DX: Z95.1 Presence of aortocoronary bypass graft (principal) | CPT/HCPCS: 93798 ==

== ENCOUNTER 2021-05-26 09:45 | Outpatient (RCR) | payer BC, SELFPAY | END 2021-06-25 23:59 | disposition home or self-care (01) | LOC: CR 09:45 | PROVIDERS: Family Provider Physician Assistant; PCP Physician Assistant; Referring Provider Internal Medicine Cardiovascular Disease; Visit Provider Internal Medicine Cardiovascular Disease | DX: Z95.1 Presence of aortocoronary bypass graft (principal) | CPT/HCPCS: 93798 ==

== ENCOUNTER 2021-08-24 12:44 | Outpatient (RCR) | payer SELFPAY | END 2021-09-23 23:59 | disposition home or self-care (01) | LOC: CR 12:44 | PROVIDERS: Family Provider Physician Assistant; PCP Physician Assistant; Referring Provider Internal Medicine Cardiovascular Disease; Visit Provider Internal Medicine Cardiovascular Disease | DX: Z95.1 Presence of aortocoronary bypass graft (principal) ==

== ENCOUNTER 2021-09-24 06:00 | Outpatient (RCR) | payer BC, SELFPAY | END 2021-10-23 23:59 | disposition home or self-care (01) | LOC: CR 06:00 | PROVIDERS: PCP Physician Assistant; Referring Provider Internal Medicine Cardiovascular Disease; Visit Provider Internal Medicine Cardiovascular Disease | DX: Z95.1 Presence of aortocoronary bypass graft (principal) ==

== ENCOUNTER 2021-10-04 10:43 | Outpatient (CLI) | payer BC, SELFPAY ==
--- NOTE | 2021-10-04 11:45 | MR_ITS ---
WS: [id number] MRI HEAD WITHOUT CONTRAST WITH ATTENTION TO THE INTERNAL AUDITORY CANALS TECHNIQUE: Sagittal T1, T2 axial, T2 axial flair, axial susceptibility weighted imaging, axial diffus ion weighted images, and coronal T2 images were obtained. Pre T1 axial and post T1 coronal images. AD C and FSPGR images. Gadolinium was not administered.. Axial fiesta imaging. CLINICAL INFORMATION: G45.9 - Transient cerebral ischemic attack, unspecified COMPARISON: MRI May 25, 2020 FINDINGS: No evidence of restricted diffusion to suggest acute ischemia. Ventricular system and basal cisterns are patent. Supratentorial white matter changes mainly in a subcortical location are unchanged compar ed to previous. This can be seen with migraine headaches. No significant parenchymal volume loss. Normal posterior fossa. Normal vascular flow voids at the skull base. No extra-axial fluid collection s. No evidence of mass or mass effect. Mild mucosal thickening ethmoid air cells. Mastoid air cells a re well aerated. No hemosiderin on susceptibly weighted images. Proximal 7th and 8th cranial nerves a re normal in appearance. Normal optic chiasm and pituitary infundibulum. Normal trigeminal nerve root entry zones. Incidental 4 mm Tornwaldt cyst in the posterior nasopharynx. MR/MR iac's wo con [id number] IMPRESSION: 1. No evidence of restricted diffusion to suggest acute ischemia. 2. Mild supratentorial white matter changes mainly in a subcortical location i s nonspecific but can be seen with migraine headaches. This is unchanged compar ed to previous. 3. No hemosiderin on susceptibly weighted images. 4. Noncontrast IACs appear normal. 5. Paranasal sinuses and mastoid air cells well aerated. 6. No hemosiderin on susceptibly weighted images. 7. No other significant changes compared to previous.
== END 2021-10-04 10:44 | disposition home or self-care (01) ==
PROVIDERS: PCP Physician Assistant; Visit Provider Specialist
DX: G45.9 Transient cerebral ischemic attack, unspecified (principal)
CPT/HCPCS: 70551

== ENCOUNTER 2021-10-22 10:25 | Emergency (ER) | payer BC, SELFPAY ==
[2021-10-22 10:31] VITALS: BP 143/80; PULSE 71; RESP 18; TEMP 37.1; O2SAT 96; BMI 30.7
--- NOTE | 2021-10-22 10:35 | XRR_ITS ---
PROCEDURE INFORMATION: Exam: XR Chest Exam date and time: 10/22/2021 10:44 AM Age: 51 years old Clinical indication: Pain; Angina pectoris; Additional info: Chest pain TECHNIQUE: Imaging protocol: XR of the chest. Views: 1 view. COMPARISON: CR XR chest 1V portable [id number] 02/22/2021 6:42 AM FINDINGS: Lungs: Unremarkable. No consolidation. Pleural spaces: Persistent mild blunting of the left costophrenic angle. No right pleural effusion. No pneumothorax. Heart/Mediastinum: Unremarkable. No cardiomegaly. Bones/joints: Stable sternal sutures. XR/XR chest 1V portable [id number] IMPRESSION: No acute findings.
--- NOTE | 2021-10-22 10:35 | ECG_ITS ---
[facility] Test Date: 2021-10-22 Pat Name: Yulisa Laughlin Department: Room: Gender: Female Wood Room Hand: : 1970 Requested By: Rishabh Arciniega Order Number: [id number] Desmond MD: Radha Morrison M.D. Measurements Intervals [place] Rate: 71 P: 79 NH: 154 QRS: 93 QRSD: 91 T: 70 QT: 415 QTc: 452 Interpretive Statements SINUS RHYTHM POSSIBLE LEFT ATRIAL ENLARGEMENT [-0.1mV P-WAVE IN V1/V2] BORDERLINE RIGHT AXIS DEVIATION [QRS AXIS > 90] Compared to ECG 02/18/2021 05:14:15 Short NH interval no longer present Intraventricular conduction delay no longer present T-wave abnormality no longer present Electronically Signed On 10-22-2021 20:18:13 CDT by Radha Morrison M.D. [email or web address]
[2021-10-22 11:00] LABS: Basophils # 0.1 10^3/uL (0.0-0.1); Basophils % 0.5 %; Eosinophils # 0.1 10^3/uL (0.0-0.8); Eosinophils % 1.3 %; Hematocrit 46.2 % (37.0-47.0); Hemoglobin 15.6 g/dL (11.5-15.3); Lymphocytes # 3.1 10^3/uL (0.8-4.8); Lymphocytes % 32.4 %; Mean Corpuscular HGB Conc 33.8 g/dL (30.0-36.0); Mean Corpuscular Hemoglobin 31.6 pg (28.0-34.0); Mean Corpuscular Volume 93.5 fl (81-99); Mean Platelet Volume 9.6 fL (7.4-10.4); Monocytes # 0.5 10^3/uL (0.2-0.9); Monocytes % 5.1 %; Neutrophils # 5.86 10^3/uL (1.8-7.7); Neutrophils % 60.5 %; Nucleated Red Blood Cells % 0 %; Platelet Count 213 10^3/cmm (130-400); Red Blood Count 4.94 10^6/uL (4.1-5.3); White Blood Count 9.7 10^3/uL (4.0-10.0)
[2021-10-22 11:46] LABS: Alanine Aminotransferase 14 U/L (0-33); Alkaline Phosphatase 116 IU/L (35-105); Anion Gap 16.7 (5-19); Aspartate Amino Transferase 18 U/L (0-32); Blood Urea Nitrogen 11 mg/dL (6-20); Calcium 9.1 mg/dL (8.5-10.5); Carbon Dioxide 22 mmol/L (22-29); Chloride 102 mmol/L (98-107); Glomerular Filtration Rate 66.5 mL/min (90-130); Glucose 96 mg/dL (65-115); Osmolality Calculated 283 mOsm/kg (285-295); Potassium 3.7 mmol/L (3.5-5.1); Sodium 137 mmol/L (136-145); Total Bilirubin 0.3 mg/dL (0.15-1.2)
[2021-10-22 11:47] LABS: Troponin(5th) Baseline 8 ng/L (0-10)
--- NOTE | 2021-10-22 12:31 | CT_ITS ---
WS: [id number] CT CHEST ANGIOGRAPHY WITH REFORMATS HISTORY: chest pain/dyspnea/hx PE TECHNIQUE: Contiguous axial images are obtained through the chest during arterial injection of intrav enous contrast. Images are reconstructed to evaluate the pulmonary arteries. MIP imaging also reviewe d. All CT scans at [facility] use at least one of these dose optimization techniques: automat ed exposure control; mA and/or kV adjustment per patient size (includes targeted exams where dose is matched to clinical indication); or iterative reconstruction. CONTRAST: Omnipaque 350; 75 mL IV. DLP: 615.51 mGy.cm COMPARISON: None available. Excellent opacification of the pulmonary arteries. No filling defects or pulmonary embolism. Pulmonar y artery size is normal. Mild atherosclerosis aorta. No aneurysm. No dissection is evident. Prior CAB G. Normal size heart. No pericardial or pleural effusion. Lungs are clear. No pneumonia, mass or nodule. No mediastinal or hilar adenopathy. No significant hia rachna hernia. Prior cholecystectomy. LEFT adrenal adenoma measures 2.[address]/CT angio chest PE protcl [id number] IMPRESSION: 1. Normal pulmonary angiogram. No pulmonary embolism. 2. Mild atherosclerosis aorta. 3. Benign LEFT adrenal adenoma. 4. Prior cholecystectomy and prior CABG.
--- NOTE | 2021-10-22 12:35 | ECG_ITS ---
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 Measurements Intervals Sherrill Rate: 65 P: 78 AR: 165 QRS: 91 QRSD: 93 T: 73 QT: 456 QTc: 476 Interpretive Statements SINUS RHYTHM BORDERLINE RIGHT AXIS DEVIATION [QRS AXIS > 90] Compared to ECG 10/22/2021 10:30:21 No significant changes Electronically Signed On 10-22-2021 20:48:40 CDT by Radha Morrison M.D. [id number]
--- NOTE | 2021-10-22 13:57 | ED_ITS ---
HPI - Chest Pain General: Chief Complaint: Chest Pain Stated Complaint: Chest pressure Time Seen by Provider: 10/22/21 10:34 Source: patient Mode of arrival: ambulatory Limitations: no limitations History of Present Illness: 51-year-old female presents to the emergency room with complaint of brief episode of chest pressure this morning. She has a known history of coronary disease and previously had a coronary artery bypass grafting January 2020 when she is not having any symptoms now she called her mirror finishing machine operator and was advised to proceed to the emergency room she denies having shortness of breath radiation pain to the neck back or arms at this time. MD complaint: chest discomfort Pertinent past history: coronary artery disease Onset (ago): hour(s) Timing of current episode: episodic and now resolved Prior episodes: Yes Onset: during rest Pain location: substernal Pain radiation: none Severity: mild Quality: heaviness Relieving factors: nothing Exacerbating factors: nothing Associated symptoms: Deny abdominal pain, diaphoresis, dyspnea, fever(s), leg edema, nausea, palpitations, sense of impending doom, syncope or vomiting Treatment prior to arrival: none Review of Systems Const: Denies: fever(s) or diaphoresis ENMT: Denies: throat pain, ear or mastoid pain, nasal discharge or nasal congestion Card: Denies: palpitations or syncope Resp: Denies: dyspnea GI: Denies: abdominal pain, nausea or vomiting : Denies: flank pain, difficulty voiding, dysuria, urinary frequency or urinary urgency Skin/Breast: Denies: rash or pruritus PFSH ED PFSH: Medical History Asthma-COPD overlap syndrome Autonomic neuropathy CAD (coronary artery disease) Chronic migraine without aura, intractable, with status migrainosus Chronic neck and back pain COPD (chronic obstructive pulmonary disease) Depression Dyslipidemia Facet arthritis, degenerative, lumbar spine Fibromyalgia Functional movement disorder Herniation of intervertebral disc between L5 and S1 History of IBS History of pulmonary edema Hyperlipidemia Long-term use of high-risk medication Lumbar stenosis with neurogenic claudication Migraine Myalgia Neurocardiogenic syncope NSTEMI (non-ST elevated myocardial infarction) Psoriasis on adalimumab Sleep apnea Smoker Triple vessel disease of the heart Surgical History History of carpal tunnel repair LEFT Hx of section Hx of cholecystectomy Hx of hysterectomy S/P CABG x 4 Family History Mother Breast cancer Grandmother Breast cancer Father Stented coronary artery Social History Smoking and tobacco status: former smoker Quit status (tobacco): considering quitting Second hand smoke exposure: Yes Alcohol intake: current Alcohol intake frequency: holidays/special occasions only Lives independently: Yes Household members: spouse Housing: House Marital status: Current occupational status: disabled Pets and animals: Yes Current gender identity: Female Physical Exam Const: COMMON NORMALS: no acute distress GENERAL APPEARANCE: cooperative and comfortable ORIENTATION/CONSCIOUSNESS: Yes awake, Yes oriented to person, Yes oriented to place and Yes oriented to time HENMT: COMMON NORMALS: normocephalic, atraumatic and hearing grossly normal bilaterally HEAD & SCALP: normocephalic and atraumatic Neck/C-Spine: COMMON NORMALS: no JVD Resp: COMMON NORMALS: normal respiratory effort, No retractions, No use of accessory muscles and clear to auscultation bilaterally AUSCULTATION: clear to auscultation bilaterally Cardio: COMMON NORMALS: no JVD, regular rate, regular rhythm and No murmurs present (Cardio) RATE: regular rate RHYTHM: regular rhythm GI: COMMON NORMALS: Soft to palpation and No hepatosplenomegaly present AUSCULTATION: Yes normoactive bowel sounds PALPATION: Yes Soft to palpation, No Tenderness to palpation present (GI), No Guarding due to palpation present (GI) and Yes No hepatosplenomegaly present Extremity: COMMON NORMALS: normal to inspection, capillary refill normal, no clubbing, cyanosis or edema, no calf tenderness and no pedal edema Neuro: SENSORIUM/ORIENTATION: Yes oriented to person, Yes oriented to place and Yes oriented to time Skin: COMMON NORMALS: no rashes or lesions noted GENERAL SKIN EXAM: no rashes or lesions noted Course Vital Signs: Vital signs: Vital Signs Temperature 98.8 F 10/22/21 10:31 Pulse Rate 71 10/22/21 10:31 Respiratory Rate 18 10/22/21 10:31 Blood Pressure 143/80 10/22/21 10:31 Pulse Oximetry 96 10/22/21 10:31 MDM - Chest Pain Medical Decision Making Serial enzymes negative discussed with cardiology. Patient states she is feeling better. She relates more of her symptoms to her's reflux. We will start her on Protonix and like her to follow-up with her primary care doctor within the next week or her mirror finishing machine operator if any worsening or change symptoms return to the emergency room. Medical Records I reviewed the patient's medical records. Lab Data I reviewed the patient's lab results. : 10/22/21 10:52 10/22/21 11:16 Radiology Impressions Chest X-Ray 10/22/21 10:35 IMPRESSION: No acute findings. Chest CTA 10/22/21 12:31 IMPRESSION: 1. Normal pulmonary angiogram. No pulmonary embolism. 2. Mild atherosclerosis aorta. 3. Benign LEFT adrenal adenoma. 4. Prior cholecystectomy and prior CABG. Laboratory Results WBC 9.7 10^3/uL (4.0-10.0) 10/22/21 10:52 RBC 4.94 10^6/uL (4.1-5.3) 10/22/21 10:52 Hgb 15.6 g/dL (11.5-15.3) H 10/22/21 10:52 Hct 46.2 % (37.0-47.0) 10/22/21 10:52 MCV 93.5 fl (81-99) 10/22/21 10:52 MCH 31.6 pg (28.0-34.0) 10/22/21 10:52 MCHC 33.8 g/dL (30.0-36.0) 10/22/21 10:52 RDW 13.0 % (12.1-15.1) 10/22/21 10:52 Plt Count 213 10^3/cmm (130-400) 10/22/21 10:52 MPV 9.6 fL (7.4-10.4) 10/22/21 10:52 Neut % (Auto) 60.5 % 10/22/21 10:52 Lymph % (Auto) 32.4 % 10/22/21 10:52 [place] % (Auto) 5.1 % 10/22/21 10:52 Eos % (Auto) 1.3 % 10/22/21 10:52 Baso % (Auto) 0.5 % 10/22/21 10:52 Neut # (Auto) 5.86 10^3/uL (1.8-7.7) 10/22/21 10:52 Lymph # (Auto) 3.1 10^3/uL (0.8-4.8) 10/22/21 10:52 [place] # (Auto) 0.5 10^3/uL (0.2-0.9) 10/22/21 10:52 Eos # (Auto) 0.1 10^3/uL (0.0-0.8) 10/22/21 10:52 Baso # (Auto) 0.1 10^3/uL (0.0-0.1) 10/22/21 10:52 Nucleated RBC % (auto) 0 % 10/22/21 10:52 Nucleated RBCs # 0.0 /100WBC 10/22/21 10:52 Sodium 137 mmol/L (136-145) 10/22/21 11:16 Potassium 3.7 mmol/L (3.5-5.1) 10/22/21 11:16 Chloride 102 mmol/L (98-107) 10/22/21 11:16 Carbon Dioxide 22 mmol/L (22-29) 10/22/21 11:16 Anion Gap 16.7 (5-19) 10/22/21 11:16 BUN 11 mg/dL (6-20) 10/22/21 11:16 Creatinine 0.9 mg/dL (0.5-0.9) 10/22/21 11:16 GFR Calculation 66.5 mL/min (90-130) L 10/22/21 11:16 Glucose 96 mg/dL (65-115) 10/22/21 11:16 Calculated Osmolality 283 mOsm/kg (285-295) L 10/22/21 11:16 Calcium 9.1 mg/dL (8.5-10.5) 10/22/21 11:16 Total Bilirubin 0.3 mg/dL (0.15-1.2) 10/22/21 11:16 AST 18 U/L (0-32) 10/22/21 11:16 ALT 14 U/L (0-33) 10/22/21 11:16 Alkaline Phosphatase 116 IU/L (35-105) H 10/22/21 11:16 Troponin T Baseline 8 ng/L (0-10) 10/22/21 11:16 Troponin T 120 Minute 8.34 ng/L (0-10) 10/22/21 13:45 Delta Troponin T 0.34 ABS# (0-10) 10/22/21 13:45 Total Protein 7.0 g/dL (6.6-8.7) 10/22/21 11:16 Albumin 4.0 g/dL (3.5-5.2) 10/22/21 11:16 Globulin 3.0 g/dL (1.3-4.6) 10/22/21 11:16 Discharge Plan Discharge Patient Disposition: Home Clinical Impression: Atypical chest pain Condition: Stable Prescriptions: New Protonix 40 mg tablet,delayed release (DR/EC) 40 mg PO DAILY 56 Days Qty: 56 0RF No Action potassium chloride 10 mEq tablet extended release 20 meq PO BID PRN (Reason: while taking lasix) 0RF gabapentin 800 mg tablet 800 mg PO QID Qty: 120 1RF cetirizine [Zyrtec] 10 mg Tablet 10 mg PO BEDTIME 0RF escitalopram oxalate [Lexapro] 20 mg Tablet 20 mg PO BEDTIME 0RF epinephrine [EpiPen] 0.3 mg/0.3 mL Auto-Injector 0.3 mg IM Q10M PRN (Reason: Allergic Reaction) Qty: 0 0RF cholecalciferol (vitamin D3) [Vitamin D3] 2,000 unit Tablet 2,000 unit PO QAM 0RF cyanocobalamin (vitamin B-12) [Vitamin B-12] 1,000 mcg Tablet 1,000 mcg PO QAM 0RF atorvastatin 40 mg Tablet 40 mg PO BEDTIME 30 Days Qty: 30 11RF folic acid 1 mg Tablet 1 mg PO DAILY 30 Days Qty: 30 3RF Tremfya 100 mg/mL auto-injector See Rx Instructions .ROUTE .COMPLEX 0RF Rx Instructions: 100 mg subcutaneously once a month for 1 time then every 8 weeks furosemide 40 mg tablet 40 mg PO BID PRN (Reason: Edema) 0RF biotin 1 tab PO QAM 0RF Aspirin Low Dose 81 mg tablet,delayed release (DR/EC) 81 mg PO QAM 0RF Toprol XL 25 mg tablet extended release 24 hr 12.5 mg PO BEDTIME 0RF topiramate 100 mg tablet 100 mg PO BID 0RF Vitamin C 500 mg Tablet 500 mg PO QAM 0RF Discharge Orders: Discharge ED (Routine); Ordered 10/22/21 Ordered By: Rishabh Burgess Referrals: Jayshree Davis PA [Primary Care Provider] - Discharge Diet: Usual diet Discharge Activity: Resume usual activity Patient Instructions: Opioid Safety Activity Restrictions/Additional Instructions: Call Dr. Florian's office to set up follow-up within the week. Coding Level of Care Code ED Publishing Director for Erwin Braun
[2021-10-22] MEDS: diphenhydrAMINE 50 mg/mL SDV 1mL IVP (14:10)
[2021-10-22 14:17] LABS: Troponin 5 2HR 8.34 ng/L (0-10)
[2021-10-22] MEDS: iohexol 350 mg/mL 100 mL Btl IV (14:25)
[2021-10-22 14:29] LABS: Troponin 5 2HR Delta 0.34 ABS# (0-10)
== END 2021-10-22 15:34 | disposition home or self-care (01) ==
PROVIDERS: Emergency Provider Family Medicine; PCP Physician Assistant
DX: R07.89 Other chest pain (principal); K21.9 Gastro-esophageal reflux disease without esophagitis; I25.10 Atherosclerotic heart disease of native coronary artery without angina pectoris; I25.2 Old myocardial infarction; J44.9 Chronic obstructive pulmonary disease, unspecified; Z95.1 Presence of aortocoronary bypass graft; Z87.891 Personal history of nicotine dependence
CPT/HCPCS: 36415; 71045; 71275; 80053; 84484; 85025; 93005; 96374; 96375; 99284; J1200; J2920; Q9967

== ENCOUNTER 2021-11-24 12:29 | Outpatient (RCR) | payer SELFPAY | END 2021-12-23 23:59 | disposition home or self-care (01) | LOC: CR 12:29 | PROVIDERS: PCP Physician Assistant; Referring Provider Thoracic Surgery (Cardiothoracic Vascular Surgery); Visit Provider Thoracic Surgery (Cardiothoracic Vascular Surgery) | DX: Z95.1 Presence of aortocoronary bypass graft (principal) ==

== ENCOUNTER 2021-12-24 09:29 | Outpatient (RCR) | payer SELFPAY | END 2022-01-23 23:59 | disposition home or self-care (01) | LOC: CR 09:29 | PROVIDERS: PCP Physician Assistant; Referring Provider Thoracic Surgery (Cardiothoracic Vascular Surgery); Visit Provider Thoracic Surgery (Cardiothoracic Vascular Surgery) | DX: Z95.1 Presence of aortocoronary bypass graft (principal) ==

== ENCOUNTER 2022-01-24 13:26 | Outpatient (RCR) | payer SELFPAY | END 2022-02-23 23:59 | disposition home or self-care (01) | LOC: CR 13:26 | PROVIDERS: PCP Physician Assistant; Referring Provider Thoracic Surgery (Cardiothoracic Vascular Surgery); Visit Provider Thoracic Surgery (Cardiothoracic Vascular Surgery) | DX: Z95.1 Presence of aortocoronary bypass graft (principal) ==

== ENCOUNTER 2022-02-24 12:45 | Outpatient (RCR) | payer SELFPAY | END 2022-03-25 23:59 | disposition home or self-care (01) | LOC: CR 12:45 | PROVIDERS: PCP Physician Assistant; Referring Provider Thoracic Surgery (Cardiothoracic Vascular Surgery); Visit Provider Thoracic Surgery (Cardiothoracic Vascular Surgery) | DX: Z95.1 Presence of aortocoronary bypass graft (principal) ==

== ENCOUNTER 2022-04-18 14:14 | Outpatient (CLI) | payer BC, SELFPAY ==
--- NOTE | 2022-04-18 14:20 | MM_ITS ---
WS: [id number] BILATERAL 3D TOMOSYNTHESIS DIGITAL SCREENING MAMMOGRAPHY WITH CAD CLINICAL INFORMATION: SCREENING HISTORY: Screening mammogram. No current complaints. COMPARISON: September 09, 2020 TECHNIQUE: Bilateral CC and MLO views. FINDINGS: Scattered fibroglandular densities bilaterally. No suspicious focal mass, asymmetry, calcifications, or architectural distortion. No evidence of malignancy. A few incidental punctate calcifications. MM/[place] [id number] IMPRESSION: BI-RADS: 2-Benign FOLLOW UP: 1 Year Follow-up Recommend return to annual screening mammography.
== END 2022-04-18 14:15 | disposition home or self-care (01) ==
LOC: RAD 14:15
PROVIDERS: PCP Physician Assistant; Visit Provider Physician Assistant
DX: Z12.31 Encounter for screening mammogram for malignant neoplasm of breast (principal)
CPT/HCPCS: 77063; 77067

== ENCOUNTER 2022-04-29 14:53 | Outpatient (RCR) | payer SELFPAY | END 2022-05-25 23:59 | disposition home or self-care (01) | LOC: CR 14:53 | PROVIDERS: PCP Physician Assistant; Referring Provider Thoracic Surgery (Cardiothoracic Vascular Surgery); Visit Provider Thoracic Surgery (Cardiothoracic Vascular Surgery) | DX: Z95.1 Presence of aortocoronary bypass graft (principal) ==

== ENCOUNTER 2022-05-26 14:59 | Outpatient (RCR) | payer SELFPAY | END 2022-06-25 23:59 | disposition home or self-care (01) | LOC: CR 14:59 | PROVIDERS: PCP Physician Assistant; Referring Provider Thoracic Surgery (Cardiothoracic Vascular Surgery); Visit Provider Thoracic Surgery (Cardiothoracic Vascular Surgery) | DX: Z95.1 Presence of aortocoronary bypass graft (principal) ==

== ENCOUNTER 2022-06-29 10:54 | Outpatient (RCR) | payer SELFPAY | END 2022-07-26 23:59 | disposition home or self-care (01) | LOC: CR 10:54 | PROVIDERS: PCP Physician Assistant; Referring Provider Thoracic Surgery (Cardiothoracic Vascular Surgery); Visit Provider Thoracic Surgery (Cardiothoracic Vascular Surgery) | DX: Z95.1 Presence of aortocoronary bypass graft (principal) ==

== ENCOUNTER 2022-07-27 11:53 | Outpatient (RCR) | payer SELFPAY | END 2022-08-23 23:59 | disposition home or self-care (01) | LOC: CR 11:53 | PROVIDERS: PCP Physician Assistant; Referring Provider Thoracic Surgery (Cardiothoracic Vascular Surgery); Visit Provider Thoracic Surgery (Cardiothoracic Vascular Surgery) | DX: Z95.1 Presence of aortocoronary bypass graft (principal) ==

== ENCOUNTER 2022-08-24 13:35 | Outpatient (RCR) | payer SELFPAY | END 2022-09-23 23:59 | disposition home or self-care (01) | LOC: CR 13:35 | PROVIDERS: PCP Physician Assistant; Referring Provider Thoracic Surgery (Cardiothoracic Vascular Surgery); Visit Provider Thoracic Surgery (Cardiothoracic Vascular Surgery) | DX: Z95.1 Presence of aortocoronary bypass graft (principal) ==

== ENCOUNTER 2022-09-26 11:53 | Outpatient (RCR) | payer SELFPAY | END 2022-10-23 23:59 | disposition home or self-care (01) | LOC: CR 11:53 | PROVIDERS: PCP Physician Assistant; Referring Provider Thoracic Surgery (Cardiothoracic Vascular Surgery); Visit Provider Thoracic Surgery (Cardiothoracic Vascular Surgery) | DX: Z95.1 Presence of aortocoronary bypass graft (principal) ==

== ENCOUNTER 2022-10-24 14:09 | Outpatient (RCR) | payer SELFPAY | END 2022-11-23 23:59 | disposition home or self-care (01) | LOC: CR 14:09 | PROVIDERS: PCP Physician Assistant; Referring Provider Thoracic Surgery (Cardiothoracic Vascular Surgery); Visit Provider Thoracic Surgery (Cardiothoracic Vascular Surgery) | DX: Z95.1 Presence of aortocoronary bypass graft (principal) ==

== ENCOUNTER 2022-11-25 11:35 | Outpatient (RCR) | payer SELFPAY | END 2022-12-23 23:59 | disposition home or self-care (01) | LOC: CR 11:35 | PROVIDERS: PCP Physician Assistant; Referring Provider Thoracic Surgery (Cardiothoracic Vascular Surgery); Visit Provider Thoracic Surgery (Cardiothoracic Vascular Surgery) | DX: Z95.1 Presence of aortocoronary bypass graft (principal) ==

== ENCOUNTER 2022-12-26 14:45 | Outpatient (RCR) | payer SELFPAY | END 2023-01-23 23:59 | disposition home or self-care (01) | LOC: CR 14:45 | PROVIDERS: PCP Physician Assistant; Referring Provider Thoracic Surgery (Cardiothoracic Vascular Surgery); Visit Provider Thoracic Surgery (Cardiothoracic Vascular Surgery) | DX: Z95.1 Presence of aortocoronary bypass graft (principal) ==

== ENCOUNTER 2023-01-24 13:14 | Outpatient (RCR) | payer SELFPAY | END 2023-02-23 23:59 | disposition home or self-care (01) | LOC: CR 13:14 | PROVIDERS: PCP Physician Assistant; Referring Provider Thoracic Surgery (Cardiothoracic Vascular Surgery); Visit Provider Thoracic Surgery (Cardiothoracic Vascular Surgery) | DX: Z95.1 Presence of aortocoronary bypass graft (principal) ==

== ENCOUNTER 2023-02-24 10:06 | Outpatient (RCR) | payer SELFPAY | END 2023-03-25 23:59 | disposition home or self-care (01) | LOC: CR 10:06 | PROVIDERS: PCP Physician Assistant; Referring Provider Thoracic Surgery (Cardiothoracic Vascular Surgery); Visit Provider Thoracic Surgery (Cardiothoracic Vascular Surgery) | DX: Z95.1 Presence of aortocoronary bypass graft (principal) ==

== ENCOUNTER 2023-03-03 11:39 | Outpatient (CLI) | payer BC, SELFPAY ==
--- NOTE | 2023-03-03 12:45 | CT_ITS ---
WS: [id number] LDCT LUNG CANCER SCREENING HISTORY: lung cancer screening TECHNIQUE: Axial imaging performed from the apices to 1 cm below the costophrenic angles. Coronal and sagittal reformats are submitted with axial MIP series. All CT scans at [facility] use at least one of these dose optimization techniques: automated exposure control; mA and/or kV adjustment per patient size (includes targeted exams where dose is matched to clinical indication); or iterativ e reconstruction. DLP: 108.61 mGy.cm DIvol: Mean CTDIvol: 2.10 (mGy) COMPARISON: None available. Diagnostic quality: Satisfactory Lungs: Tiny pleural tag at the RIGHT apex. Noncalcified 4 mm nodule superior segment RIGHT lower lobe . Perifissural nodule measuring 6 mm, minor fissure. No additional pulmonary mass, nodule or pneumoni a. No endobronchial lesions. No endobronchial lesions. No bronchiectasis. Heart: Normal size heart with no pericardial effusion.. Prior CABG. Other findings: Mild atherosclerosis aorta. Pulmonary artery size is slightly enlarged. Several small mediastinal and hilar lymph nodes. LEFT adrenal adenoma 2.5 cm. Prior cholecystectomy. IMPRESSION: CT/CT lung screening [id number] LUNG-RADS: 3-Probably Benign FOLLOW UP: 6 Month LDCT OTHER FINDINGS (S MODIFIER): None.
== END 2023-03-03 11:40 | disposition home or self-care (01) ==
LOC: RAD 11:42
PROVIDERS: PCP Physician Assistant; Visit Provider Internal Medicine Pulmonary Disease
DX: Z12.2 Encounter for screening for malignant neoplasm of respiratory organs (principal); F17.210 Nicotine dependence, cigarettes, uncomplicated
CPT/HCPCS: 71271

== ENCOUNTER 2023-03-28 10:09 | Outpatient (RCR) | payer SELFPAY | END 2023-04-25 23:59 | disposition home or self-care (01) | LOC: CR 10:09 | PROVIDERS: PCP Physician Assistant; Referring Provider Thoracic Surgery (Cardiothoracic Vascular Surgery); Visit Provider Thoracic Surgery (Cardiothoracic Vascular Surgery) | DX: Z95.1 Presence of aortocoronary bypass graft (principal) ==

== ENCOUNTER 2023-04-26 10:12 | Outpatient (RCR) | payer SELFPAY | END 2023-05-25 23:59 | disposition home or self-care (01) | LOC: CR 10:12 | PROVIDERS: PCP Physician Assistant; Referring Provider Thoracic Surgery (Cardiothoracic Vascular Surgery); Visit Provider Thoracic Surgery (Cardiothoracic Vascular Surgery) | DX: Z95.1 Presence of aortocoronary bypass graft (principal) ==

== ENCOUNTER 2023-07-06 07:07 | Outpatient (CLI) | payer BC, SELFPAY ==
[2023-07-06 07:14] VITALS: BMI 33.9
--- NOTE | 2023-07-06 08:30 | ECG_ITS ---
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 Interpretive Statements NAME OF STUDY: LEXISCAN SESTAMIBI STRESS TEST INDICATION: Chest Pain PROCEDURE: At the baseline, the EKG revealed normal sinus rhythm with normal ST Ts.. The baseline heart was 84 bpm with a blood pressue of 114/67 mm of Hg Lexiscan was infused over a period of 20 seconds. A total of 0.4 milligrams of Lexiscan was infused. The stress phase was continued for a total of 5 minutes. Heart rate at the end of the stress phase was 102 bpm with a blood pressure 127/64 mm of Hg. The EKG at the peak infusion revealed no significant changes. Sestamibi was injected 20 seconds after the Lexiscan infusion. Heart rate at the end of the recovery phase was 100 bpm with a blood pressure of 115/56 mm of Hg. CONCLUSION: 1. No significant EKG changes with the LexiScan infusion 2. No LexiScan induced chest pain or cardiac arrhythmia 3. Normal blood pressure and heart rate response 4. Sestamibi/sestamibi perfusion scan pending; see separate report. Electronically Signed On 07-07-2023 18:43:26 HOME DEPOT REP by Cindy Deleon M.D. [id number]
--- NOTE | 2023-07-06 08:32 | NMCV_ITS ---
NM starr perf SPECT r/s* [id number] Yulisa Laughlin Age: 53 Gender: F : 1970 Exam Date: 07/06/2023 08:23 Ordering Phys: Radha Morrison MD ([email or web address]) Technologist: ETTA Escobar Exam Location: [facility] Indications: CHEST PAIN STRESS TEST Please see separate stress test report in [facility] for full findings IMAGE PROTOCOL Rest/Stress 1 Lexiscan Day Radiopharmaceutical Dose (mCi) Administration Site Administered by Rest: Tc-99m 10.9 IV ETTA Bedoya Sestamibi Stress:Tc-99m 32.5 IV ETTA Bedoya Sestamibi Rest: 06-Jul-2023 60 Discovery 630 Stress: 06-Jul-2023 30 Discovery 630 0.4mg Lexiscan. Images obtained in supine and prone position. SPECT RESULTS Technical Quality: Excellent Raw Data Analysis: Normal Image Corrections: No attenuation or motion correction applied Summed Stress Score: 0 Summed Rest Score: 0 Summed Difference Score: 0 PERFUSION FINDINGS Uniform myocardial tracer uptake. No significant perfusion abnormalities. FUNCTIONAL RESULTS (calculated via Gated SPECT) Stress Image LV EF (%): 75 Stress EDV (mL):67 TID: 0.93 Stress ESV (mL):17 FUNCTIONAL FINDINGS: Segmental wall motion analysis revealing no gross wall motion abnormalities IMPRESSIONS 1. Myocardial perfusion imaging revealing uniform myocardial tracer uptake 2. Normal LV ejection fraction 75%. 3. LV wall motion analysis revealing no gross wall motion abnormalities. 4. Normal LV volume Low probability for coronary ischemia, based on the above findings Dr Cindy Deleon MD [facility] (Electronically Signed) Final Date: 06 July 2023 13:19 S
[2023-07-06] MEDS: regadenoson 0.4 Mg/5 ml Syringe IVP (09:05)
[2023-07-06 09:28] VITALS: BP 115/55; PULSE 72
== END 2023-07-06 07:08 | disposition home or self-care (01) ==
LOC: CDL 07:08
PROVIDERS: PCP Physician Assistant; Visit Provider Internal Medicine Cardiovascular Disease
DX: R07.9 Chest pain, unspecified (principal)
CPT/HCPCS: 36415; 78452; 93017; 96374; A9500; J2785

== ENCOUNTER 2023-09-26 15:27 | Outpatient (RCR) | payer BC, SELFPAY | END 2023-10-24 23:59 | disposition home or self-care (01) | LOC: CR 15:27 | PROVIDERS: PCP Physician Assistant; Referring Provider Thoracic Surgery (Cardiothoracic Vascular Surgery); Visit Provider Thoracic Surgery (Cardiothoracic Vascular Surgery) | DX: Z95.1 Presence of aortocoronary bypass graft (principal) ==

== ENCOUNTER 2023-10-26 13:48 | Outpatient (RCR) | payer SELFPAY | END 2023-11-24 23:59 | disposition home or self-care (01) | LOC: CR 13:48 | PROVIDERS: PCP Physician Assistant; Referring Provider Thoracic Surgery (Cardiothoracic Vascular Surgery); Visit Provider Thoracic Surgery (Cardiothoracic Vascular Surgery) | DX: Z95.1 Presence of aortocoronary bypass graft (principal) ==

== ENCOUNTER 2023-11-28 13:50 | Outpatient (RCR) | payer SELFPAY | END 2023-12-24 23:59 | disposition home or self-care (01) | LOC: CR 13:50 | PROVIDERS: PCP Physician Assistant; Referring Provider Thoracic Surgery (Cardiothoracic Vascular Surgery); Visit Provider Thoracic Surgery (Cardiothoracic Vascular Surgery) | DX: Z95.1 Presence of aortocoronary bypass graft (principal) ==

== ENCOUNTER 2023-12-25 15:30 | Outpatient (RCR) | payer BC, SELFPAY | END 2024-01-24 23:59 | disposition home or self-care (01) | LOC: CR 15:30 | PROVIDERS: PCP Physician Assistant; Referring Provider Thoracic Surgery (Cardiothoracic Vascular Surgery); Visit Provider Thoracic Surgery (Cardiothoracic Vascular Surgery) | DX: I25.10 Atherosclerotic heart disease of native coronary artery without angina pectoris (principal) ==

== ENCOUNTER 2024-01-08 11:29 | Outpatient (CLI) | payer BC, SELFPAY ==
--- NOTE | 2024-01-08 12:23 | MM_ITS ---
WS: [id number] BILATERAL 3D TOMOSYNTHESIS DIGITAL SCREENING MAMMOGRAPHY WITH CAD CLINICAL INFORMATION: SCREEN HISTORY: Screening mammogram. LEFT breast pain COMPARISON: 2021 TECHNIQUE: Bilateral CC and MLO views. FINDINGS: Scattered fibroglandular densities bilaterally. No suspicious focal mass, asymmetry, calcifications, or architectural distortion. No evidence of malignancy. Few incidental punctate calcifications. MM/[place] [id number] IMPRESSION: BI-RADS: 2-Benign FOLLOW UP: 1 Year Follow-up Recommend return to annual screening mammography.
== END 2024-01-08 11:30 | disposition home or self-care (01) ==
LOC: RAD 11:29
PROVIDERS: PCP Physician Assistant; Visit Provider Physician Assistant
DX: Z12.31 Encounter for screening mammogram for malignant neoplasm of breast (principal); R92.323 Mammographic fibroglandular density, bilateral breasts; R92.1 Mammographic calcification found on diagnostic imaging of breast
CPT/HCPCS: 77063; 77067

== ENCOUNTER 2024-02-06 08:50 | Outpatient (RCR) | payer BC, SELFPAY | END 2024-02-24 23:59 | disposition home or self-care (01) | LOC: CR 08:50 | PROVIDERS: PCP Physician Assistant; Referring Provider Thoracic Surgery (Cardiothoracic Vascular Surgery); Visit Provider Thoracic Surgery (Cardiothoracic Vascular Surgery) | DX: Z95.1 Presence of aortocoronary bypass graft (principal) ==

== ENCOUNTER 2024-02-28 13:00 | Outpatient (RCR) | payer BC, SELFPAY | END 2024-03-25 23:59 | disposition home or self-care (01) | LOC: CR 13:00 | PROVIDERS: PCP Physician Assistant; Referring Provider Thoracic Surgery (Cardiothoracic Vascular Surgery); Visit Provider Thoracic Surgery (Cardiothoracic Vascular Surgery) | DX: Z95.1 Presence of aortocoronary bypass graft (principal) ==

== ENCOUNTER 2024-03-08 11:51 | Outpatient (CLI) | payer BC, SELFPAY ==
--- NOTE | 2024-03-08 12:00 | CT_ITS ---
WS: [id number] LDCT LUNG CANCER SCREENING HISTORY: Cancer screen TECHNIQUE: Axial imaging performed from the apices to 1 cm below the costophrenic angles. Coronal and sagittal reformats are submitted with axial MIP series. All CT scans at [facility] use at least one of these dose optimization techniques: automated exposure control; mA and/or kV adjustment per patient size (includes targeted exams where dose is matched to clinical indication); or iterativ e reconstruction. DLP: 100.40 mGy.cm DIvol: Mean CTDIvol: 2.20 (mGy) COMPARISON: 03/03/2023 Diagnostic quality: Satisfactory Lungs: Tiny pleural tags in fibrosis at the lung apices. Peripheral groundglass attenuation measures 10 mm RIGHT upper lobe. Previously described nodule in th e superior segment RIGHT lower lobe is not identified on today's exam. 3 mm subpleural nodule at the lingula. This nodule was also present on the prior study. There are a few very tiny micronodules thro ughout both lungs which are not concerning. No endobronchial lesions. Heart: Normal size heart with no pericardial effusion.. Prior CABG. Other findings: Normal size heart. Extensive heavy calcification of the rampart coronary arteries. Mil d atherosclerosis aorta. Pulmonary arteries mildly dilated, 3.1 cm. No mediastinal or hilar adenopath y. LEFT adrenal adenoma 2.[address]/CT lung screening [id number] IMPRESSION: LUNG-RADS: 2-Benign Appearance or Behavior FOLLOW UP: 12 Month: Continue annual screening with LDCT OTHER FINDINGS (S MODIFIER): None.
== END 2024-03-08 11:52 | disposition home or self-care (01) ==
LOC: RAD 11:54
PROVIDERS: PCP Physician Assistant; Visit Provider Internal Medicine Pulmonary Disease
DX: Z12.2 Encounter for screening for malignant neoplasm of respiratory organs (principal); F17.210 Nicotine dependence, cigarettes, uncomplicated; R91.8 Other nonspecific abnormal finding of lung field; D35.02 Benign neoplasm of left adrenal gland; Z98.890 Other specified postprocedural states
CPT/HCPCS: 71271

== ENCOUNTER 2024-03-20 10:49 | Outpatient (CLI) | payer BC, SELFPAY ==
--- NOTE | 2024-03-20 10:54 | MR_ITS ---
WS: [id number] MRI LUMBAR SPINE NONCONTRAST HISTORY: VERTEBROGENIC LOW BACK PAIN COMPARISON: 10/13/2020 TECHNIQUE: Sagittal and axial multisequence imaging is submitted. Several small Schmorl's nodes throughout the thoracic and lumbar spine. Normal lumbar alignment with no compression fractures or marrow edema. Disc spaces and vertebral body heights are well-preserved. Conus terminates normally at L1-2 disc level. L1-L2: Normal. L2-L3: Normal. L3-L4: Mild annular disc bulging with ligamentum flavum and facet arthritis. Small amount of fluid in the facet joints. Very minimal encroachment upon the subarticular recesses. No high-grade stenosis. L4-L5: Mild annular disc bulging with moderate ligamentum flavum and facet arthritis. Mild progressio n of central and bilateral subarticular recess stenosis. Slightly greater encroachment upon the trave rsing L5 nerve roots. Mild bilateral foraminal stenosis. L5-S1: Mild disc bulging. Small central disc protrusion has increased slightly in size with a annular fissure. There is slight contact on the S1 nerve roots. Mild facet arthritis. Mild central, subartic ular recess and foraminal stenosis. Paravertebral soft tissues are normal. MR/MR lumbar spine wo con* [id number] IMPRESSION: 1. Slight increase in size of the central disc protrusion at L5-S1 described o n the 10/13/2020. There is mild central, bilateral subarticular recess and martha inal stenosis. 2. L4-5: Progression of central and bilateral subarticular recess stenosis at L4-5. There is still but only mild stenosis with increasing facet joint arthrit is. 3. L3-4: Mild disc encroachment upon the subarticular recesses. 4. No marrow edema or fracture.
== END 2024-03-20 10:50 | disposition home or self-care (01) ==
LOC: RAD 10:50
PROVIDERS: PCP Physician Assistant; Visit Provider Anesthesiology Pain Medicine
DX: M51.26 Other intervertebral disc displacement, lumbar region (principal); M51.44 Schmorl's nodes, thoracic region; M51.46 Schmorl's nodes, lumbar region
CPT/HCPCS: 72148

== ENCOUNTER 2024-03-25 09:20 | Outpatient (CLI) | payer BC, SELFPAY ==
--- NOTE | 2024-03-25 | ECG_ITS ---
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 Interpretive Statements LEXISCAN SESTAMIBI STRESS TEST Procedure: At the baseline, the blood pressure was 110/65 mmHg with a heart rate of 61 bpm. The electrocardiogram showed normal sinus rhythm, normal axis with normal ST and T's. The Lexiscan was infused over a period of 20 seconds. A total of 0.4 mg of Lexiscan was infused. The stress phase was continued for a total of 5 minutes. Heart rate was at the end of stress phase was 78 bpm and a blood pressure of 98/56 mmHg. The EKG at the peak infusion revealed normal sinus rhythm with no significant ST-T wave changes. Sestamibi was injected 20 seconds after the Lexiscan infusion. Blood pressure at the end of recovery phase was 94/58 mmHg with a heart rate of 70 bpm. Conclusion: 1. Normal EKG response to Lexiscan infusion 2. No Lexiscan induced chest pain or cardiac arrhythmia. 3. Normal blood pressure and heart rate response. 4. Sestamibi/sestamibi perfusion scan pending; see separate report. Electronically Signed On 04-05-2024 21:52:19 CDT by Mathew Marte M.D. [id number]
[2024-03-25 09:30] VITALS: BMI 35.6
--- NOTE | 2024-03-25 09:32 | NMCV_ITS ---
NM starr perf SPECT r/s* [id number] Yulisa Laughlin Age: 53 Gender: F : 1970 Exam Date: 03/25/2024 10:11 Ordering Phys: Mathew Marte M.D ([email or web address]) Technologist: ETTA Dean Exam Location: [facility] Indications: cp STRESS TEST Please [facility] IMAGE PROTOCOL Rest/Stress 1 Lexiscan Day Radiopharmaceutical Dose (mCi) Administration Site Administered by Rest: Tc-99m 10.2 IV Kathy Bejarano RESIDENT SERVICES SUPERVISOR Sestamibi Stress:Tc-99m 32.9 IV Kathy Bejarano, RESIDENT SERVICES SUPERVISOR Sestamibi Rest: 25-Mar-2024 60 Discovery 630 Stress: 25-Mar-2024 30 Discovery 630 0.4mg Lexiscan. Images obtained in supine and prone position. SPECT RESULTS Technical Quality: Good Raw Data Analysis: Normal Image Corrections: No attenuation or motion correction applied Summed Stress Score: 0 Summed Rest Score: 0 Summed Difference Score: 0 PERFUSION FINDINGS SPECT images demonstrate homogeneous tracer distribution throughout the myocardium. FUNCTIONAL RESULTS (calculated via Gated SPECT) Stress Image LV EF (%): 63 Stress EDV (mL):87 TID: 1.02 Stress ESV (mL):32 FUNCTIONAL FINDINGS: There is normal left ventricular systolic function. IMPRESSIONS 1. Normal myocardial perfusion imaging with no evidence of ischemia 2. LV systolic function is normal Mathew Marte MD (Electronically Signed) Final Date: 25 March 2024 18:30 S
[2024-03-25] MEDS: regadenoson 0.4 Mg/5 ml Syringe IVP (10:52)
[2024-03-25 11:06] VITALS: BP 94/58; PULSE 70
== END 2024-03-25 09:21 | disposition home or self-care (01) ==
PROVIDERS: PCP Physician Assistant; Visit Provider Internal Medicine
DX: I25.10 Atherosclerotic heart disease of native coronary artery without angina pectoris (principal); R07.9 Chest pain, unspecified; R06.02 Shortness of breath
CPT/HCPCS: 36415; 78452; 93017; 96374; A9500; J2785

== ENCOUNTER 2024-03-26 13:33 | Outpatient (RCR) | payer BC, SELFPAY | END 2024-04-25 23:59 | disposition home or self-care (01) | LOC: CR 13:33 | PROVIDERS: PCP Physician Assistant; Referring Provider Thoracic Surgery (Cardiothoracic Vascular Surgery); Visit Provider Thoracic Surgery (Cardiothoracic Vascular Surgery) | DX: Z95.1 Presence of aortocoronary bypass graft (principal) ==

== ENCOUNTER 2024-03-27 13:53 | Outpatient (CLI) | payer BC, SELFPAY ==
--- NOTE | 2024-03-27 13:57 | XR_ITS ---
WS: [id number] Exam: XR lumbar spine f/e only [id number] Date/Time of Exam: 03/27/2024 2:02 PM Reason For Exam: VERTEBROGENIC LOW BACK PAIN No flexion or extension instability identified. Very little motion between flexion and extension imag es. Facet arthropathy at L4-5 and L5-S1. Exaggerated lumbar lordosis. Disc spaces relatively well-abimael ntained. XR/XR lumbar spine f/e only [id number] IMPRESSION: 1. No flexion or extension instability. 2. Degenerative changes. Exaggerated lumbar lordosis.
== END 2024-03-27 13:54 | disposition home or self-care (01) ==
LOC: RAD 13:54
PROVIDERS: PCP Physician Assistant; Visit Provider Anesthesiology Pain Medicine
DX: M47.816 Spondylosis without myelopathy or radiculopathy, lumbar region (principal); M47.817 Spondylosis without myelopathy or radiculopathy, lumbosacral region; M40.56 Lordosis, unspecified, lumbar region
CPT/HCPCS: 72120

== ENCOUNTER 2024-04-26 13:44 | Outpatient (RCR) | payer SELFPAY | END 2024-05-25 23:59 | disposition home or self-care (01) | LOC: CR 13:44 | PROVIDERS: PCP Physician Assistant; Referring Provider Thoracic Surgery (Cardiothoracic Vascular Surgery); Visit Provider Thoracic Surgery (Cardiothoracic Vascular Surgery) | DX: I25.10 Atherosclerotic heart disease of native coronary artery without angina pectoris (principal) ==

== ENCOUNTER 2024-08-26 09:01 | Outpatient (CLI) | payer BC, SELFPAY ==
--- NOTE | 2024-08-26 09:13 | CT_ITS ---
WS: [id number] CT ABDOMEN AND PELVIS WITH AND WITHOUT CONTRAST HISTORY: FLANK PAIN, bilateral pain, gross hematuria. TECHNIQUE: Unenhanced 5 mm axial imaging first performed through the abdomen. Post contrast imaging through the abdomen and pelvis. Oral contrast has not been provided. Sagittal and coronal reformats are submitted. All CT scans at [facility] use at least one of these dose optimization techniques: automated exposure control; mA and/or kV adjustment per patient size (includes targeted exams where dose is matched to clinical indication); or iterative reconstruction. CONTRAST: Omnipaque 350; 95 mL IV. DLP: 2444.34 mGy.cm COMPARISON: 09/10/2020 Lung bases are clear. Heart size is normal. Small hiatal hernia. RIGHT kidney: 12.2 cm in length. Nonobstructing 4 mm calcification in the central renal pelvis. No perinephric stranding. No cystic or solid mass. No uroepithelial lesions. RIGHT ureter on the delayed image is nearly completely distended with contrast. Distal ureter is not opacified. LEFT kidney: 11.5 cm in length. No obstruction. No calcification. No uroepithelial lesions. RIGHT ureter is completely opacified with excreted contrast. Urinary bladder: Normally distended urinary bladder. No masses. Liver is mildly enlarged with mild hepatic steatosis with areas of sparing. Normal portal vein. Prior cholecystectomy. Normal spleen. Normal pancreas. Normal RIGHT adrenal gland. Well-circumscribed mass in the LEFT adrenal gland measures 3.2 x 2.9 cm. Hounsfield units are -6 on the noncontrast exam. Sc attered plaque within the abdominal aorta and mesenteric arteries. Stomach is normally distended. No GI tract obstruction. Normal appendix. No colitis. Postsurgical changes along the ventral abdominal wall. Prior hernia repair. No free fluid or adenopathy in the pelvis. Prior hysterectomy. No bone destruction. CT/CT abdomen pelvis wo/w [id number] IMPRESSION: 1. No renal mass or obstruction. No uroepithelial lesions. 2. Nonobstructing 4 mm calcification RIGHT renal pelvis. 3. Negative urinary bladder. 4. Prior cholecystectomy and hysterectomy. 5. Normal appendix. 6. Mild hepatic steatosis.
[2024-08-26] MEDS: iodixanol 320 mg/mL 100mL Btl IV (09:44)
== END 2024-08-26 09:02 | disposition home or self-care (01) ==
PROVIDERS: PCP Physician Assistant; Visit Provider Physician Assistant
DX: R10.9 Unspecified abdominal pain (principal); N28.89 Other specified disorders of kidney and ureter; Z90.49 Acquired absence of other specified parts of digestive tract; Z90.710 Acquired absence of both cervix and uterus; K76.0 Fatty (change of) liver, not elsewhere classified; D35.02 Benign neoplasm of left adrenal gland; K44.9 Diaphragmatic hernia without obstruction or gangrene; R93.421 Abnormal radiologic findings on diagnostic imaging of right kidney; R93.422 Abnormal radiologic findings on diagnostic imaging of left kidney; R16.0 Hepatomegaly, not elsewhere classified; I70.0 Atherosclerosis of aorta; K55.1 Chronic vascular disorders of intestine; Z98.890 Other specified postprocedural states
CPT/HCPCS: 74178

== ENCOUNTER 2025-03-28 13:01 | Outpatient (CLI) | payer BC, SELFPAY ==
--- NOTE | 2025-03-28 13:09 | MM_ITS ---
WS: [id number] BILATERAL 3D TOMOSYNTHESIS DIGITAL SCREENING MAMMOGRAPHY WITH CAD CLINICAL INFORMATION: SCREENING HISTORY: Screening mammogram. No current complaints. COMPARISON: 2023 TECHNIQUE: Bilateral CC and MLO views. FINDINGS: Scattered fibroglandular densities bilaterally. No suspicious focal mass, asymmetry, calcifications, or architectural distortion. No evidence of malignancy. Incidental punctate calcification. A few incidental intramammary lymph nodes. MM/MM scr tomosynthesis [id number] IMPRESSION: DENSITY: There are scattered areas of fibroglandular density. BI-RADS: 2 - Benign. FOLLOW UP: 1 Year Follow-up Recommend return to annual screening mammography.
== END 2025-03-28 13:02 | disposition home or self-care (01) ==
PROVIDERS: PCP Physician Assistant; Visit Provider Physician Assistant
DX: Z12.31 Encounter for screening mammogram for malignant neoplasm of breast (principal); R92.323 Mammographic fibroglandular density, bilateral breasts; R92.1 Mammographic calcification found on diagnostic imaging of breast; N64.89 Other specified disorders of breast
CPT/HCPCS: 77063; 77067

== ENCOUNTER 2025-06-04 07:14 | Outpatient (CLI) | payer BC, SELFPAY ==
--- NOTE | 2025-06-04 07:00 | USCV_ITS ---
Yulisa Laughlin Age: 54 Gender: F : 1970 Exam Date: 06/04/2025 07:35 Ordering Phys: Mathew Marte M.D ([email or web address]) Technologist: Exam Location: [facility] [place] Indication: cp sob BP: 120 / 80 HR: 76 Rhythm: Sinus Technical Quality: Adequate MEASUREMENTS (Male / Female) Normal Values 2D ECHO LV Diastolic Diameter PLAX 3.8 cm 4.2 - 5.9 / 3.9 - 5.3 cm IVS Diastolic Thickness 1.0 cm 0.6 - 1.0 / 0.6 - 0.9 cm IVS Systolic Thickness 1.6 cm LVPW Diastolic Thickness 1.1 cm 0.6 - 1.0 / 0.6 - 0.9 cm LVPW Systolic Thickness 1.6 cm LVOT Diameter 2.0 cm LV Ejection Fraction 2D Teich 59.2 % LV Ejection Fraction MOD 4C 71.0 % LV Ejection Fraction MOD 2C 63.5 % LV Ejection Fraction 2C AL 63.5 % LA Diameter 3.5 cm RA Systolic Volume 4C AL 36.8 ml RA Systolic Volume 4C MOD 35.4 ml Aorta at Sinotubular Diameter 2.9 cm IVC Diameter 1.6 cm M-MODE LA Ao Ratio MM 1.0 AV Cusp Separation MM 2.6 cm DOPPLER AV Peak Velocity 82.0 cm/s LVOT Peak Velocity 67.0 cm/s AV Area Cont Eq vti 3.1 cm squared AV Area Cont Eq pk 2.6 cm squared MV Area PHT 5.4 cm squared Mitral E to A Ratio 1.5 TV Peak Velocity 141.5 cm/s TR Peak Velocity 172.0 cm/s TR Peak Gradient 11.8 mmHg TV Peak E Velocity 104.0 cm/s PV Peak Velocity 75.0 cm/s FINDINGS Left Ventricle Normal left ventricular size, systolic function and wall thickness, with no regional wall motion abnormalities. Left ventricular ejection fraction is estimated at 60 %. Normal diastolic function. Right Ventricle Normal right ventricular size and systolic function. Right Atrium Normal right atrial size. Left Atrium Normal left atrial size. IA Septum Normal appearance of the interatrial septum. Mitral Valve Normal mitral valve structure. No mitral valve stenosis or regurgitation. Aortic Valve Normal aortic valve structure. No aortic valve stenosis or regurgitation. Tricuspid Valve Normal tricuspid valve structure. No tricuspid valve stenosis or regurgitation. Normal pulmonary pressure. Pulmonic Valve Normal pulmonic valve structure. No pulmonic valve stenosis or regurgitation. Pericardium No pericardial effusion. Aorta Normal diameter of the aortic root and ascending thoracic aorta. IVC Normal IVC diameter. CONCLUSIONS Normal left ventricular size, systolic function and wall thickness, with no regional wall motion abnormalities. Left ventricular ejection fraction is estimated at 60 %. Normal diastolic function. There is no pericardial effusion. No significant valvular abnormalities. Right atrial pressure is around 5 mm of mercury. Adair Platt MD (Electronically Signed) Final Date: 17 June 2025 17:16 S
== END 2025-06-04 07:15 | disposition home or self-care (01) ==
LOC: RAD 07:15
PROVIDERS: PCP Physician Assistant; Visit Provider Internal Medicine
DX: R07.9 Chest pain, unspecified (principal); R06.02 Shortness of breath
CPT/HCPCS: 93306

== ENCOUNTER 2025-06-05 16:46 | Outpatient (CLI) | payer BC, SELFPAY ==
--- NOTE | 2025-06-05 16:53 | CT_ITS ---
WS: [id number] LDCT LUNG CANCER SCREENING HISTORY: NICOTINE DEPENDENCE TECHNIQUE: Axial imaging performed from the apices to 1 cm below the costophrenic angles. Coronal and sagittal reformats are submitted with axial MIP series. All CT scans at [facility] use at least one of these dose optimization techniques: automated exposure control; mA and/or kV adjustment per patient size (includes targeted exams where dose is matched to clinical indication); or iterative reconstruction. DLP: 90.90 mGy.cm DIvol: Mean CTDIvol: 2.00 (mGy) COMPARISON: 03/08/2024 Diagnostic quality: Satisfactory Lungs: Lungs are well aerated. 2 mm micronodule LEFT lower lobe. There are no masses or nodules increasing in size. 4 mm fissural nodule along the minor fissure. Groundglass attenuation in the RIGHT upper lobe noted on 03/08/2024 has resolved. Heart: Normal size heart with no pericardial effusion.. Prior CABG. Other findings: Mild atherosclerosis aorta. Normal size pulmonary artery. No mediastinal or hilar adenopathy. Well-circumscribed low-attenuation 2.7 cm mass in the LEFT adrenal gland is stable. Consistent with a LEFT adrenal adenoma. Prior cholecystectomy. CT/CT lung screening [id number] IMPRESSION: LUNG-RADS: 2-Benign Appearance or Behavior FOLLOW UP: 12 Month: Continue annual screening with LDCT OTHER FINDINGS (S MODIFIER): None.
== END 2025-06-05 16:47 | disposition home or self-care (01) ==
LOC: RAD 16:47
PROVIDERS: PCP Physician Assistant; Visit Provider Physician Assistant
DX: R91.1 Solitary pulmonary nodule (principal); I70.0 Atherosclerosis of aorta; Z90.49 Acquired absence of other specified parts of digestive tract; E27.8 Other specified disorders of adrenal gland
CPT/HCPCS: 71271